=== PATIENT | male | born 1980 | race Caucasian/White ===

== ENCOUNTER 2021-11-06 12:41 | Observation (INO) ==
[2021-11-06 14:19] LABS: Basophils # (auto) 0.04 K/uL (0-0.2); Basophils % (auto) 0.2 %; Eosinophils % (auto) 1.2 %; Hematocrit (blood only) 50.6 % (40.1-51.0); Hemoglobin 17.4 g/dl (14.0-18.0); Immature Granulocytes # (auto) 0.08 K/uL (0.00-0.02); Immature Granulocytes % (auto) 0.5 %; Lymphocytes # (auto) 1.45 K/uL (1.2-3.4); Lymphocytes % (auto) 8.9 %; Mean Corpuscular Hemoglobin 31.8 pg (25.0-34.0); Mean Corpuscular Hgb Conc 34.4 g/dL (32.0-36.0); Mean Corpuscular Volume 92.5 fL (80.0-100.0); Mean Platelet Volume 9.9 fL (9.4-12.4); Monocytes # (auto) 0.87 K/uL (0.24-0.82); Monocytes % (auto) 5.4 %; Neutrophils # (auto) 13.59 K/uL (1.4-6.5); Neutrophils % (auto) 83.8 %; Platelet Count 185 K/uL (130-400); RDW Coefficient of Variation 13.4 % (11.5-14.5); RDW Standard Deviation 45.8 fL (36.4-46.3); Red Blood Count 5.47 M/uL (4.63-6.08); White Blood Count 16.23 K/ul (4.8-10.8)
[2021-11-06] MEDS ORDERED: SODIUM CHLORIDE 0.9% 1000ML 1,000 ML IV ONE (14:39)
[2021-11-06 14:47] LABS: Albumin Globulin Ratio 1.6 (0.9-2); Albumin Level 4.2 gm/dl (3.4-5.0); BUN Creatinine Ratio 11.6 (10-20); Calcium 8.9 mg/dl (8.5-10.1); Creatinine Clr Calc Pharmacy 149.7 ml/min; Est GFR (African American) 134.8 ml/min; Est GFR (Non-African American) 116.3 ml/min; Globulin 2.6 gm/dl (2.5-4.0); Total Protein 6.8 gm/dl (6.0-8.3)
[2021-11-06] MEDS ORDERED: MoRPHine SULFATE 10 MG/ML CARP/VIAL IV STA (15:02)
[2021-11-06] MEDS ORDERED: ONDANSETRON INJ 2 MG/ML 2 ML VIAL IV STA (15:02)
[2021-11-06] MEDS ORDERED: OPTIRAY 320 100ml IV ONE (15:18)
--- NOTE | 2021-11-06 15:39 | CT Scan Report ---
ABDOMEN AND PELVIS CT WITH IV CONTRAST CT DOSE: 673.08 mGycm HISTORY: Generalized abdominal pain, elev WBC, h/o pancolitis TECHNIQUE: Multiaxial CT images of the abdomen and pelvis were performed following the use of intrave nous contrast. A dose lowering technique was utilized adhering to the principles of ALARA. COMPARISON STUDY: Abdomen and pelvis CT 12/04/2018. FINDINGS: The lung bases are clear. No pneumoperitoneum. No pneumatosis. No fractures within the visu alized osseous structures. Mild hepatic steatosis. No hepatic or splenic masses. The spleen is at the upper limits of normal measuring 12 cm. The adrenal glands, pancreas, and kidneys are unremarkable. No hydronephrosis. No retroperitoneal lymphadenopathy. The bladder is unremarkable. No pelvic free fl uid. Questionable thickening of the descending colon is likely due to underdistention. No adjacent pe ricolonic change to suggest an acute process at this time. The appendix is fluid-filled and slightly dilated 7 mm. There is mild periappendiceal fat stranding. The appendiceal wall appears slightly thic kened. There is also mild thickening and inflammatory change adjacent to the terminal ileum. Mild thi ckening of the cecal base is also noted. A few mildly dilated and fluid-filled loops of small bowel w ithin the left side the abdomen. This favors a mild ileus. No transition point to suggest a bowel obs truction at this time. No retroperitoneal or pelvic lymphadenopathy. Normal caliber abdominal aorta. The main portal vein is patent. No evidence for abscess or bowel perforation. IMPRESSION: 1. Inflammatory change adjacent to the appendix and terminal ileum with mild wall thickening involvin g both the appendix and terminal ileum. Findings favor a mild acute appendicitis with reactive change to the ileum. However, a terminal ileitis with reactive change to the appendix could also have a sim ilar appearance. 2. Questionable thickening of the descending colon is likely due to underdistention. 3. Mild small bowel ileus. No evidence for bowel obstruction. ACT 112: Negative or not required by law. Electronically signed by: Vivek Juárez M.D. 11/06/2021 3:37 PM
--- NOTE | 2021-11-06 17:47 | History & Physical Report ---
Date of Service November 06, 2021 Assessment & Plan (1) Appendicitis: Plan: This is a 41yM with a PMH of HTN and GERD who presents to the [facility] ED on 11/06/21 with complaints of right lower abdominal pain that started this AM. In the ER he underwent a CT a/p that revealed "inflammatory change adjacent to the appendix and terminal ileum with mild wall thickening involving both the appendix and terminal ileum, favoring a mild acute appendicitis with reactive change to the ileum. However, a terminal ileitis with reactive change to the appendix could also have a similar appearance." In the ED WBC 16 and patient is afebrile and hypertensive. On exam patient's abdomen is mildly distended with majority of tenderness to palpation in the RLQ, however did have some mild discomfort in the upper abdomen as well. Does have a history of pancolitis back in 2019. Due to patient's history and the CT scan read unclear if appendicitis causing the surrounding inflammatory changes to the ileum vs a terminal ileitis causing the inflammation of the appendix...we will admit the patient for IV abx and monitor him overnight. Will repeat CBC in the AM. Keep NPO, IVF, and IV abx. Will ask medicine to evaluate the patient for his history of HTN and elevated BP in the ED. Patient was seen/examined with Dr. Amador. History of Present Illness Primary Care Provider: John Woodard MD This is a 41yM with a PMH of HTN and GERD who presents to the [facility] ED on 11/06/21 with complaints of abdominal pain. 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 He reports it's in the lower abdomen, worse on the R side. He rates his pain an 8/10 in severity, made worse with movement. He came into the ER due to his pain and s ymptoms. In the ER he underwent a CT a/p that revealed "inflammatory change adjacent to the appendix and terminal ileum with mild wall thickening involving both the appendix and terminal ileum, favoring a mild acute appendicitis with reactive change to the ileum. However, a terminal ileitis with reactive change to the appendix could also have a similar appearance." Patient denies any fevers, nausea/vomiting, or change in bowel habits. No prior abdominal surgical history. He does have a history of pancolitis in 2019. He states this feels different and is worse. He was suppose to follow up with GI and have a colonoscopy, however due to the co-pay he never followed through with the procedure. It was thought his symptoms were related to food intake at that time and he has not had any problems since then. He denies any personal or family history if inflammatory bowel disease. Patient has not had anything to eat today, but has drank a couple pepsi's and water, last around 1pm. Allergies Allergy/AdvReac Type Severity Reaction Status Date / Time bupropion Allergy Intermediate hives Verified 11/06/21 17:13 Home Medications Medication Instructions Recorded Confirmed Type amitriptyline 10 mg tablet 10 mg PO HS 11/06/21 11/06/21 History lisinopril 2.5 mg tablet 2.5 mg PO DAILY 11/06/21 11/06/21 History omeprazole 20 mg tablet,delayed 20 mg PO BID 11/06/21 11/06/21 History release sertraline 50 mg tablet (Zoloft) 50 mg PO DAILY 11/06/21 11/06/21 History Past Med/Surg History Medical History GERD (gastroesophageal reflux disease) Headache Insect bite Minor head injury without loss of consciousness Pancolitis Surgical History No significant past surgical history Family History Other Myocardial infarction Social History (Updated 11/06/21 @ 17:40 by Aristides Jacobson) Smoking Status: Never smoker Preferred Language: Japanese marital status: Single current occupational status: employed Feels Safe at Home: Yes Review of Systems Constitutional: + chills; no fever Respiratory: no dyspnea Cardiovascular: no chest pain Gastrointestinal: + abdominal pain; no bloating, no nausea, no vomiting and no change in bowel habits Physical Exam Physical Exam: awake/alert Constitutional: well developed and well nourished Respiratory: normal respiratory effort Gastrointestinal (Abdomen): Inspection/Auscultation: + abdomen distended (mild); no abdominal surgical incision Percussion/Palpation: + abdomen tender (some mild ttp in upper abd, most ttp noted to be in RLQ) and abdomen soft Results & Data Results & Data ([facility]) Vital Signs (Past 12 Hours) Vital Signs Temp Pulse Pulse Resp BP BP Pulse Ox 11/06/21 17:32 94 H 20 123/74 96 11/06/21 16:00 92 H 20 129/82 95 11/06/21 14:49 84 18 168/104 H 97 11/06/21 12:46 37.1 C 105 H 20 171/108 H 96 O2 Del Method 11/06/21 17:32 Room Air 11/06/21 16:00 Room Air 11/06/21 14:49 Room Air 11/06/21 12:46 Room Air Diagnostic Findings ABDOMEN AND PELVIS CT WITH IV CONTRAST CT DOSE: 673.08 mGycm HISTORY: Generalized abdominal pain, elev WBC, h/o pancolitis TECHNIQUE: Multiaxial CT images of the abdomen and pelvis were performed following the use of intravenous contrast. A dose lowering technique was utilized adhering to the principles of ALARA. COMPARISON STUDY: Abdomen and pelvis CT 12/04/2018. FINDINGS: The lung bases are clear. No pneumoperitoneum. No pneumatosis. No fractures within the visualized osseous structures. Mild hepatic steatosis. No hepatic or splenic masses. The spleen is at the upper limits of normal measuring 12 cm. The adrenal glands, pancreas, and kidneys are unremarkable. No hydronephrosis. No retroperitoneal lymphadenopathy. The bladder is unremarkable. No pelvic free fluid. Questionable thickening of the descending colon is likely due to underdistention. No adjacent pericolonic change to suggest an acute process at this time. The appendix is fluid-filled and slightly dilated 7 mm. There is mild periappendiceal fat stranding. The appendiceal wall appears slightly thickened. There is also mild thickening and inflammatory change adjacent to the terminal ileum. Mild thickening of the cecal base is also noted. A few mildly dilated and fluid-filled loops of small bowel within the left side the abdomen. This favors a mild ileus. No transition point to suggest a bowel obstruction at this time. No retroperitoneal or pelvic lymphadenopathy. Normal caliber abdominal aorta. The main portal vein is patent. No evidence for abscess or bowel perforation. IMPRESSION: 1. Inflammatory change adjacent to the appendix and terminal ileum with mild wall thickening involving both the appendix and terminal ileum. Findings favor a mild acute appendicitis with reactive change to the ileum. However, a terminal ileitis with reactive change to the appendix could also have a similar appearance. 2. Questionable thickening of the descending colon is likely due to underdistention. 3. Mild small bowel ileus. No evidence for bowel obstruction. ACT 112: Negative or not required by law. Electronically signed by: Vivek Juárez M.D. 11/06/2021 3:37 PM Supervising Physician Co-Signing Physician Notes As per Ameena Javier physician parking assistant The patient started with acute pain in her right lower quadrant at work this morning progressively getting worse came into the emergency room evaluated by CT scan with the above findings Past history of pancolitis never worked up with follow-up colonoscopy for insurance reasons Denies any real history of diarrhea or think compatible inflammatory bowel disease Resting comfortably in bed without any pain except on examination he has some guarding and right upper quadrant towards the midline negative Rovsing sign tender right lower quadrant but not pinpoint Farooq's point no right inguinal hernia appreciated testes normal At this point not 100% sure that this is appendicitis this was discussed with the patient with the options would be treated with antibiotics and see how he does and reevaluate him in the morning the meantime have medicine see the patient for his hypertension and also mention to him that if he went into surgery and found inflammation involving the appendix and terminal ileum (I tushar this for him as far as the anatomy) he may require to have a resection of the ileum and the cecum All question answered he is comfortable with this decision PG Care Time/CCT Total # of Minutes Spent Total Time Spent with Patient: Total time spent is greater than 50% in coordination of care (as documented) at patient's floor/unit and/or counseling patient: Coding Level of Care Code 29838 Initial Inpt Care Lvl 2 Diagnoses Appendicitis K37
--- NOTE | 2021-11-06 17:48 | Emergency Department Note ---
History of Present Illness General Chief complaint: Abdominal Pain Stated complaint: ABDOMINAL PAIN Time Seen by Provider: 11/06/21 14:35 History of Present Illness Maximum Pain Intensity: 8 Pleasant 41-year-old male who presents to the emergency department with complaint of lower abdominal pain that started approximately 2 hours ago, and has progressively worsened. The patient reports that the pain feels like a cramping sensation. It is now is worsened with ambulation and bending over. The patient denies any fever, chills, nausea or vomiting. The patient denies prior history of abdominal surgeries. He rates his discomfort an 8 out of 10. Home Medications Medication Instructions Recorded Confirmed Type amitriptyline 10 mg tablet 10 mg PO HS 11/06/21 11/06/21 History lisinopril 2.5 mg tablet 2.5 mg PO DAILY 11/06/21 11/06/21 History omeprazole 20 mg tablet,delayed 20 mg PO BID 11/06/21 11/06/21 History release sertraline 50 mg tablet (Zoloft) 50 mg PO DAILY 11/06/21 11/06/21 History Allergies Allergy/AdvReac Type Severity Reaction Status Date / Time bupropion Allergy Intermediate hives Verified 11/06/21 17:13 Past Med/Surg History Medical History GERD (gastroesophageal reflux disease) Headache Insect bite Minor head injury without loss of consciousness Pancolitis Surgical History No significant past surgical history Family History Other Myocardial infarction Social History (Updated 11/06/21 @ 17:40 by Aristides Jacobson) Smoking Status: Never smoker Preferred Language: Georgian marital status: Single current occupational status: employed Feels Safe at Home: Yes Review of Systems 10 system review was performed and was negative except for pertinent positives and negatives as indicated in history of present illness Physical Exam Vital Signs Vital Signs - 24 hr 11/06/21 12:46 11/06/21 14:49 11/06/21 16:00 Temperature 37.1 C Temperature Source Temporal Artery Scan Pulse Rate 105 H Pulse Rate [Right Finger] 84 92 H Pulse Rhythm [Right Finger] Regular Regular Pulse Strength [Right Finger] Normal Normal Respiratory Rate 20 18 20 Respiratory Effort / Characteristics Non-Labored Non-Labored Spontaneous Non-Labored Spontaneous Respiratory Depth Normal Normal Normal Respiratory Pattern Regular Regular Blood Pressure 171/108 H Blood Pressure [Right Arm] 168/104 H 129/82 Blood Pressure Mean 129 Blood Pressure Mean [Right Arm] 125 97 Blood Pressure Position [Right Arm] Lying Lying Pulse Oximetry 96 97 95 Oxygen Delivery Method Room Air Room Air Room Air Sepsis Recent Fever Within 48 Hours No Sepsis New/Unexplained Change in Mental Status N/A Sepsis Action Taken by Nursing No Action Required 11/06/21 17:32 Temperature Temperature Source Pulse Rate Pulse Rate [Right Finger] 94 H Pulse Rhythm [Right Finger] Regular Pulse Strength [Right Finger] Normal Respiratory Rate 20 Respiratory Effort / Characteristics Non-Labored Respiratory Depth Normal Respiratory Pattern Blood Pressure Blood Pressure [Right Arm] 123/74 Blood Pressure Mean Blood Pressure Mean [Right Arm] 90 Blood Pressure Position [Right Arm] Lying Pulse Oximetry 96 Oxygen Delivery Method Room Air Sepsis Recent Fever Within 48 Hours Sepsis New/Unexplained Change in Mental Status Sepsis Action Taken by Nursing CONSTITUTIONAL: Healthy and well nourished. Patient appears in mild to moderate discomfort. HEENT: No scleral icterus or conjunctival injection/pallor. RESPIRATORY: Clear to auscultation bilaterally with no wheezing, crackles, rhonchi or stridor. CARDIOVASCULAR: Regular rate and rhythm with no murmurs, rubs or gallops. GASTROINTESTINAL: Bowel sounds present in all quadrants. Patient has a positive McBurney's point tenderness with guarding. Negative Rovsing sign. Positive heeltap. Positive psoas/obturator sign. Negative CVA tenderness. No rebound. MUSCULOSKELETAL: Full range of motion of all joints without discomfort. No pain with logroll of the right hip. No tenderness to palpation through the lower lumbar spine, paraspinous muscles or SI joint. INTEGUMENTARY: No rash or other significant dermatologic conditions noted. HEMATOLOGIC: No ecchymosis or petechiae. PSYCHIATRIC: Positive affect. NEUROLOGIC: No focal neurologic deficits noted. Course Course Patient history and physical exam were performed. Nurses notes were reviewed. Vital signs were reviewed from triage, showing an elevated blood pressure. The patient was otherwise afebrile. Nurse protocol orders were entered as the emergency department was busy, and the patient had to wait in the waiting room. IV access was established, and labs were drawn. Upon my evaluation at the time the patient was transferred to her room, he was found to have an elevated white count with left shift and bandemia. CMP and lipase were normal. The patient had not been able to provide a urine sample for urinalysis. Prior to CT imaging of the abdomen. The patient was administered IV morphine and Zofran. CT with IV contrast of the abdomen and pelvis was concerning for acute appendicitis, with possible reactive changes to the ileum. Radiologist also questioned thi ckening of the descending colon as well, with a mild small bowel ileus. I did review the patient's prior medical history, showing that the patient was evaluated [address] imaging showing a pancolitis. The patient did follow-up with gastroenterology, who recommended colonoscopy. The patient reports that his [id number] expense would have been $1500, and deferred colonoscopy. The patient reports that he has not had any further issues with intermittent abdominal pain since that time. Findings were discussed with the patient, concerning for possible acute appendicitis versus possible colitis. Findings were discussed with Dr. Amador, general surgeon, who has agreed to admit the patient with IV antibiotics. They will order IV antibiotics for the patient. They have asked that I consult the hospitalist service for further evaluation and management of his hypertension. It is noted that his last blood pressure at the time of my dictation was 123/74. Review of prior blood pressure history does show chronic elevation. The patient does take lisinopril 2.5 mg daily. The patient was happy with plan of care, and denied any significant discomfort at the conclusion of my exam. Please see general surgery and hospitalist dictations for further treatment and final disposition. Administered Medications Discontinued Medications Sodium Chloride (Nss 1000ml) 1,000 mls @ 999 mls/hr IV .Q1H1M ONE Stop: 11/06/21 15:39 Last Infusion: 11/06/21 16:12 Dose: 0 mls/hr Documented By: Admin: 11/06/21 14:50 Dose: 999 mls/hr Documented By: CDV Ioversol (Optiray 320 100ml) 94 ml IV ONCE ONE Stop: 11/06/21 15:19 Last Admin: 11/06/21 15:18 Dose: 94 ml Documented By: BROOKEF Morphine Sulfate (Morphine Sulfate 10 Mg/Ml Carp/Vial) 6 mg IV NOW STA Stop: 11/06/21 15:03 Last Admin: 11/06/21 15:07 Dose: 6 mg Documented By: MILLY Ondansetron HCl (Ondansetron Inj 2 Mg/Ml 2 Ml Vial) 4 mg IV NOW STA Stop: 11/06/21 15:03 Last Admin: 11/06/21 15:07 Dose: 4 mg Documented By: MILLY Medical Decision Making Medical Records Attestation: I reviewed the patient's medical records. Home Medications Current Medication List: was personally reviewed by me Laboratory Data Attestation: I reviewed the patient's lab results. Result diagrams: 11/06/21 13:43 11/06/21 13:43 Lab Results 11/06/21 11/06/21 11/06/21 Range/Units 13:43 13:43 16:25 WBC 16.23 H (4.8-10.8) K/ul RBC 5.47 (4.63-6.08) M/uL Hgb 17.4 (14.0-18.0) g/dl Hct 50.6 (40.1-51.0) % MCV 92.5 (80.0-100.0) fL MCH 31.8 (25.0-34.0) pg MCHC 34.4 (32.0-36.0) g/dL RDW Std Deviation 45.8 (36.4-46.3) fL RDW Coeff of Perri 13.4 (11.5-14.5) % Plt Count 185 (130-400) K/uL MPV 9.9 (9.4-12.4) fL Immature Gran % (Auto) 0.5 % Neut % (Auto) 83.8 % Lymph % (Auto) 8.9 % [place] % (Auto) 5.4 % Eos % (Auto) 1.2 % Baso % (Auto) 0.2 % Neut # (Auto) 13.59 H (1.4-6.5) K/uL Lymph # (Auto) 1.45 (1.2-3.4) K/uL [place] # (Auto) 0.87 H (0.24-0.82) K/uL Eos # (Auto) 0.20 (0-0.50) K/uL Baso # (Auto) 0.04 (0-0.2) K/uL Immature Gran # (Auto) 0.08 H (0.00-0.02) K/uL Sodium 136 (136-145) mmol/L Potassium 4.0 (3.5-5.1) mmol/L Chloride 104 (98-107) mmol/L Carbon Dioxide 26 (21-32) mmol/L Anion Gap 6 (3-11) BUN 8 (6-23) mg/dl Creatinine 0.69 (0.6-1.4) mg/dl Est Cr Clr Drug Dosing 149.7 ml/min Est GFR ( Amer) 134.8 ml/min Est GFR (Non-Af Amer) 116.3 ml/min BUN/Creatinine Ratio 11.6 (10-20) Glucose 97 (70-99(Fasting)) mg/dl Calcium 8.9 (8.5-10.1) mg/dl Total Bilirubin 1.0 (0.2-1.0) mg/dl AST 28 (13-39) U/L ALT 29 (7-52) U/L Alkaline Phosphatase 95 (34-104) U/L Total Protein 6.8 (6.0-8.3) gm/dl Albumin 4.2 (3.4-5.0) gm/dl Globulin 2.6 (2.5-4.0) gm/dl Albumin/Globulin Ratio 1.6 (0.9-2) Lipase 11 (11-82) U/L SARS-CoV-2, RNA, NAAT NEGATIVE (NEGATIVE) Imaging Data Attestation: I personally reviewed and interpreted this imaging study as follows: My Impression: My interpretation of a CT with IV contrast of the abdomen and pelvis shows evidence for possible acute appendicitis versus colitis. No evidence for bowel obstruction, free air, diverticulitis or other acute findings other than a mild small bowel ileus per radiologist report. Radiologist's Impression: Abdomen/Pelvis CT 11/06/21 14:[address] WITH IV CONTRAST CT DOSE: 673.08 mGycm HISTORY: Generalized abdominal pain, elev WBC, h/o pancolitis TECHNIQUE: Multiaxial CT images of the abdomen and pelvis were performed following the use of intravenous contrast. A dose lowering technique was utilized adhering to the principles of ALARA. COMPARISON STUDY: Abdomen and pelvis CT 12/04/2018. FINDINGS: The lung bases are clear. No pneumoperitoneum. No pneumatosis. No fractures within the visualized osseous structures. Mild hepatic steatosis. No hepatic or splenic masses. The spleen is at the upper limits of normal measuring 12 cm. The adrenal glands, pancreas, and kidneys are unremarkable. No hydronephrosis. No retroperitoneal lymphadenopathy. The bladder is unremarkable. No pelvic free fluid. Questionable thickening of the descending colon is likely due to underdistention. No adjacent pericolonic change to suggest an acute proc ess at this time. The appendix is fluid-filled and slightly dilated 7 mm. There is mild periappendiceal fat stranding. The appendiceal wall appears slightly thickened. There is also mild thickening and inflammatory change adjacent to the terminal ileum. Mild thickening of the cecal base is also noted. A few mildly dilated and fluid-filled loops of small bowel within the left side the abdomen. This favors a mild ileus. No transition point to suggest a bowel obstruction at this time. No retroperitoneal or pelvic lymphadenopathy. Normal caliber abdominal aorta. The main portal vein is patent. No evidence for abscess or bowel perforation. IMPRESSION: 1. Inflammatory change adjacent to the appendix and terminal ileum with mild wall thickening involving both the appendix and terminal ileum. Findings favor a mild acute appendicitis with reactive change to the ileum. However, a terminal ileitis with reactive change to the appendix could also have a similar appearance. 2. Questionable thickening of the descending colon is likely due to underdistention. 3. Mild small bowel ileus. No evidence for bowel obstruction. ACT 112: Negative or not required by law. Electronically signed by: Vivek Juárez M.D. 11/06/2021 3:37 PM Blood Pressure Blood Pressure Findings: Elevated blood pressure Blood Pressure Disposition: further management by hospitalist DAHLIA Narrative CT imaging is concerning for acute appendicitis versus colitis. The patient has had a pancolitis in the past that has not been evaluated with colonoscopy. General surgery has agreed to admit the patient with IV antibiotics and further observation overnight. [facility]. Additional work-up today is not suggestive of ureteral calculus, diverticulitis, bowel obstruction, pancreatitis, cholecystitis or hepatitis. Impression & Plan Acute appendicitis, Colitis Discharge Plan Visit Data Chief Complaint: Abdominal Pain Stated Complaint: ABDOMINAL PAIN ED Provider: Stevan Gilliam ED Midlevel Provider: Aristides Jacobson Discharge Problem: Acute appendicitis, Colitis Forms Stand Alone Forms: My [facility] Prescriptions Prescriptions: No Action amitriptyline 10 mg Tablet 10 mg PO HS sertraline [Zoloft] 50 mg Tablet 50 mg PO DAILY lisinopril 2.5 mg Tablet 2.5 mg PO DAILY omeprazole 20 mg Tablet,Delayed Release (Dr/Ec) 20 mg PO BID Referrals Referrals: John Woodard MD [Primary Care Provider] - : Acute appendicitis Qualifiers: Acute appendicitis type: with localized peritonitis Appendicitis gangrene presence: without gangrene Appendicitis perforation presence: without pe rforation Appendicitis abscess presence: without abscess Qualified Code(s): K35.30 - Acute appendicitis with localized peritonitis, without perforation or gangrene
--- NOTE | 2021-11-06 18:16 | Consultation ---
Date of Consultation November 06, 2021 Assessment & Plan (1) Appendicitis: Patient is 41 y/o M with PMH HTN, depression, tobacco use, alcohol use currently admitted for possible appendicitis 11/06/21 CT abdomen pelvis concerning for inflammatory change adjacent to appendix and terminal ileum with mild wall thickening of appendix and terminal ileum General surgery managing Receiving IV Zosyn per general surgery Patient is n.p.o. IVF CBC, BMP in a.m. (2) Hypertension: In ER initial BP 168/104 down to 129/82 Likely elevated secondary to pain Monitor Continue lisinopril (3) Depression: Continue sertraline, amitriptyline (4) Alcohol use: Drinks 5-10 beers daily. Denies history of alcohol withdrawal Alcohol withdrawal protocol with gabapentin Monitor closely Start daily thiamine and folic acid (5) Tobacco use: Smokes 1.5 packs/day Smoking cessation encouraged Nicotine patch (6) GERD (gastroesophageal reflux disease): Oral PPI converted to IV by general surgery DVT Prophylaxis SCDs Disposition per primary team Follows with Dr Woodard for routine care Pt was seen and care coordinated with Dr Burroughs. See addendum Thank you for this consultation. We will follow the patient with you during their hospital stay. You can [facility] a [facility] via [facility] Supervising Physician Co-Signing Physician Notes Attending addendum The patient was seen and examined in emergency room He complains to have right lower quadrant pain and noted to have very high blood pressure initially Denies any chest pain and/or palpitation associated with it On examination Lying in bed with minimal discomfort due to abdominal pain Hemodynamically stable and is afebrile Chestclear to auscultate bilaterally HeartS1-S2, regular Abdomensoft, tender in right lower quadrant with rebound tenderness and bowel sound decreased Extremities negative for any edema His admission labs, EKG and imaging studies reviewed Has acute appendicitis under surgical care High blood pressure likely situational Agree with assessment and plan as outlined above by ELLIOT Hernández Dr History of Present Illness Requesting Physician: Dr Amador Reason for Consultation: HTN Attending Physician: Dr Amador History of Present Illness Patient is 41 y/o M with PMH HTN, depression, tobacco use, alcohol use seen in medical consultation for hypertension. Patient presented to ER today 11/06/2021 for right lower quadrant pain and CT abdomen pelvis concerning for inflammatory change adjacent to appendix and terminal ileum with mild wall thickening of appendix and terminal ileum. Patient admitted by general surgery and is being treated with IV antibiotics and being further monitored. In ER initial BP 168/104 down to 129/82. Patient takes lisinopril daily and reports had morning dose. Patient has since been medicated with pain medicine reports some decreased abdominal pain. Reported chills today without known fever. Denies diaphoresis, N/V/D/C, MAURO, dizziness, syncope, vision changes, neck pain, CP, SOB, orthopnea, palpitations, cough, sore throat, choking, otalgia, rhinorrhea, paresthesias, weakness, extremity weakness, extremity edema, rashes, urinary symptoms. Allergies Allergy/AdvReac Type Severity Reaction Status Date / Time bupropion Allergy Intermediate hives Verified 11/06/21 17:13 Home Medications Medication Instructions Recorded Confirmed Type amitriptyline 10 mg tablet 10 mg PO HS 11/06/21 11/06/21 History lisinopril 2.5 mg tablet 2.5 mg PO DAILY 11/06/21 11/06/21 History omeprazole 20 mg tablet,delayed 20 mg PO BID 11/06/21 11/06/21 History release sertraline 50 mg tablet (Zoloft) 50 mg PO DAILY 11/06/21 11/06/21 History Patient History Medical History Alcohol use Appendicitis Depression GERD (gastroesophageal reflux disease) Headache Hypertension Insect bite Minor head injury without loss of consciousness Pancolitis Tobacco use Surgical History (Updated 11/06/21 @ 20:05 by Anais Bowman PA-C) History of esophagogastroduodenoscopy (EGD) Family History Other Myocardial infarction Social History (Updated 11/06/21 @ 20:05 by Anais Bowman PA-C) Smoking Status: Current every day smoker Cigarettes Per Day: 1.5 ppd; Second Hand Exposure: Yes; Hx Alcohol Use: Yes (5-10 beers daily) Alcohol type: beer Hx Substance Use: No Preferred Language: French Communication Ability: Effective [employer] Supervisor Required: No Beliefs That Will Affect Care: None marital status: Single Current Living Situation: Parent current occupational status: employed Feels Safe at Home: Yes Assistive Devices: None Review of Systems Review of Systems: All systems reviewed & are unremarkable except as noted in HPI & below Physical Exam Physical Exam: General: no distress, WDWN Head: normocephalic, atraumatic Eyes: conjunctiva non-injected, anicteric ENT: normal inspection external ears, nose, mucous membranes moist Neck: supple, trachea midline Lungs: clear, no respiratory distress, no wheezing/rhonchi/rales CV: RRR, no murmur, no pretibial edema Abd: slightly distended, normal BS, soft, + tender to palpation RLQ Ext: no cyanosis, no calf tenderness Neuro: A&O x 3, no focal deficits noted, normal affect Skin: warm, dry Results & Data ([facility]) Vital Signs (Past 12 Hours) Vital Signs Temp Pulse Pulse Resp BP BP Pulse Ox 11/06/21 17:32 94 H 20 123/74 96 11/06/21 16:00 92 H 20 129/82 95 11/06/21 14:49 84 18 168/104 H 97 11/06/21 12:46 37.1 C 105 H 20 171/108 H 96 O2 Del Method 11/06/21 17:32 Room Air 11/06/21 16:00 Room Air 11/06/21 14:49 Room Air 11/06/21 12:46 Room Air Laboratory Results Short CBC 11/06/21 Range/Units 13:43 WBC 16.23 H (4.8-10.8) K/ul Hgb 17.4 (14.0-18.0) g/dl Hct 50.6 (40.1-51.0) % Plt Count 185 (130-400) K/uL BMP 11/06/21 13:43 Sodium 136 Potassium 4.0 Chloride 104 Carbon Dioxide 26 BUN 8 Creatinine 0.69 Glucose 97 Calcium 8.9 Liver Function 11/06/21 Range/Units 13:43 Total Bilirubin 1.0 (0.2-1.0) mg/dl AST 28 (13-39) U/L ALT 29 (7-52) U/L Alkaline Phosphatase 95 (34-104) U/L Albumin 4.2 (3.4-5.0) gm/dl Diagnostic Findings Abdomen/Pelvis CT 11/06/21 14:[address] WITH IV CONTRAST CT DOSE: 673.08 mGycm HISTORY: Generalized abdominal pain, elev WBC, h/o pancolitis TECHNIQUE: Multiaxial CT images of the abdomen and pelvis were performed following the use of intravenous contrast. A dose lowering technique was utilized adhering to the principles of ALARA. COMPARISON STUDY: Abdomen and pelvis CT 12/04/2018. FINDINGS: The lung bases are clear. No pneumoperitoneum. No pneumatosis. No fractures within the visualized osseous structures. Mild hepatic steatosis. No hepatic or splenic masses. The spleen is at the upper limits of normal measuring 12 cm. The adrenal glands, pancreas, and kidneys are unremarkable. No hydron ephrosis. No retroperitoneal lymphadenopathy. The bladder is unremarkable. No pelvic free fluid. Questionable thickening of the descending colon is likely due to underdistention. No adjacent pericolonic change to suggest an acute process at this time. The appendix is fluid-filled and slightly dilated 7 mm. There is mild periappendiceal fat stranding. The appendiceal wall appears slightly thickened. There is also mild thickening and inflammatory change adjacent to the terminal ileum. Mild thickening of the cecal base is also noted. A few mildly dilated and fluid-filled loops of small bowel within the left side the abdomen. This favors a mild ileus. No transition point to suggest a bowel obstruction at this time. No retroperitoneal or pelvic lymphadenopathy. Normal caliber abdominal aorta. The main portal vein is patent. No evidence for abscess or bowel perforation. IMPRESSION: 1. Inflammatory change adjacent to the appendix and terminal ileum with mild wall thickening involving both the appendix and terminal ileum. Findings favor a mild acute appendicitis with reactive change to the ileum. However, a terminal ileitis with reactive change to the appendix could also have a similar appearance. 2. Questionable thickening of the descending colon is likely due to underdistention. 3. Mild small bowel ileus. No evidence for bowel obstruction. ACT 112: Negative or not required by law. Electronically signed by: Vivek Juárez M.D. 11/06/2021 3:37 PM
[2021-11-06] MEDS ORDERED: PIPERACILLIN/TAZOBACTAM 4.5 GM/120 ML BAG IV ONE ×2 (19:19→20:30)
[2021-11-06] MEDS ORDERED: LORazepam 1 MG in SYRINGE 0.5 ML IV PRN (19:51)
[2021-11-06] MEDS ORDERED: GABAPENTIN 1200MG ALCOHOL WITHDRAWAL LOAD PO STA (19:51)
[2021-11-06] MEDS ORDERED: ONDANSETRON INJ 2 MG/ML 2 ML VIAL IV PRN (19:51)
[2021-11-06] MEDS ORDERED: MULTI-VITAMIN INFUSION 10 ML, THIAMINE HCL 100 MG, FOLIC ACID 1 MG in SODIUM CHLORIDE 0... IV ONE (20:00)
[2021-11-06] MEDS: MoRPHine SULFATE 4 MG/ML 1 ML CARP\\VIAL IV PRN ×2 (20:15→23:10)
[2021-11-06] MEDS ORDERED: GABAPENTIN 600 MG TAB PO ONE (20:30)
[2021-11-06] MEDS: PANTOprazole 40 MG in SYRINGE 0 ML IV SCH (21:20)
[2021-11-06] MEDS: THIAMINE HCL 100 MG TAB PO SCH (21:21)
[2021-11-06] MEDS: FOLIC ACID 1 MG TAB PO SCH (21:21)
[2021-11-06] MEDS: NICOTINE 21 MG/24 HR TDSY TD SCH (21:21)
[2021-11-06] MEDS: AMITRIPTYLINE HCL 10 MG TAB PO SCH (21:22)
[2021-11-06] MEDS: SODIUM CHLORIDE 0.9% 1000ML 1,000 ML IV SCH (21:33)
[2021-11-06] MEDS: ACETAMINOPHEN 1000 MG/100 ML IV IV PRN (22:05)
[2021-11-07] MEDS: PIPERACILLIN/TAZOBACTAM 3.375 GM in DEXTROSE 5% 100 ML IV SCH ×3 (03:10→19:15)
[2021-11-07] MEDS: MoRPHine SULFATE 4 MG/ML 1 ML CARP\\VIAL IV PRN ×4 (05:08→21:55)
[2021-11-07] MEDS: GABAPENTIN 600 MG TAB PO SCH ×3 (05:09→21:55)
--- NOTE | 2021-11-07 05:33 | Surgery Progress Note ---
Date of Service November 07, 2021 Assessment & Plan (1) Appendicitis: Plan: Patient has been admitted to the hospital due to his abdominal pain proceeding as follows: As patient has a history of pancolitis in the past, it was not 100% certain patient was suffering from appendicitis We will repeat a CBC this morning (this is pending Keep patient n.p.o. Continue to provide analgesics Continue antibiotics in the form of Zosyn Continue IV fluids while patient is n.p.o. Patient will be reevaluated by Dr. Egan daily this morning and the determination will be made if patient warrants operative intervention Admission and Anticipated Discharge Date Admission Date: November 06, 2021 Supervising Physician Co-Signing Physician Notes Compared to last evening the patient physical finding may be a bit better although still exquisitely tender in the right lower quadrant nonlocalized Lab is pending At this point we will proceed with laparoscopic appendectomy possible bowel resection possible open Risk and complication of surgery explained to patient include bleeding infection converting to an open procedure and he would like to proceed accordingly Surgery has been notified We will have permit signed in the preop area Subjective Patient is resting comfortably in bed. He notes continued abdominal pain which is greatest on the right side of his abdomen in the right lower quadrant. He notes that the pain is worse with movement. He denies any fevers, shakes, or chills. No nausea or vomiting. He has not moved his bowels since admission. He notes he has passed a tiny amount of flatus. Physical Exam Gastrointestinal (Abdomen): Abdomen has mild distention noted. There is pain noted with palpation in the right lower quadrant with some associated rebound tenderness. Results & Data ([facility]) Vital Signs (Past 12 Hours) Vital Signs Temp Pulse Pulse Resp BP BP Pulse Ox 11/07/21 00:00 11/06/21 19:51 11/06/21 22:50 36.6 C 63 18 113/73 97 11/06/21 19:51 36.6 C 70 16 143/89 H 95 11/06/21 19:35 78 19 119/87 98 11/06/21 19:00 84 18 128/83 96 11/06/21 17:32 94 H 20 123/74 96 Pulse Ox O2 Del Method O2 Del Method 11/07/21 00:00 95 Room Air 11/06/21 19:51 95 Room Air 11/06/21 22:50 Room Air 07/22/22 19:51 Room Air 11/06/21 19:35 Room Air 11/06/21 19:00 Room Air 11/06/21 17:32 Room Air PG Care Time/CCT Total # of Minutes Spent Total Time Spent with Patient: Total time spent is greater than 50% in coordination of care (as documented) at patient's floor/unit and/or counseling patient: Coding Level of Care Code 35098 Subseq Hosp Care Lvl 1 Diagnoses Appendicitis K37
[2021-11-07] MEDS: SODIUM CHLORIDE 0.9% 1000ML 1,000 ML IV SCH ×3 (06:42→19:14)
[2021-11-07] MEDS ORDERED: fentaNYL citrate 100 MCG/2 ML VIAL ONE ×2 (06:50→09:46)
[2021-11-07] MEDS ORDERED: MIDAZOLAM HCL 1 MG/ML 2ML VIAL ONE (06:50)
[2021-11-07] MEDS ORDERED: ROCURONIUM BROMIDE 10 MG/ML 5 ML VIAL IV ONE (06:51)
[2021-11-07] MEDS ORDERED: PROPOFOL IV EMULSION 10 MG/ML 20 ML VIAL IV ONE (06:51)
[2021-11-07] MEDS ORDERED: LIDOCAINE 2% 20 MG/ML 5 ML SYR IV ONE (06:51)
[2021-11-07] MEDS: SERTRALINE HCL 50 MG TABLET PO SCH (07:22)
[2021-11-07] MEDS: FOLIC ACID 1 MG TAB PO SCH (07:22)
[2021-11-07] MEDS: lisinopril 2.5 MG TAB PO SCH (07:22)
[2021-11-07] MEDS: THIAMINE HCL 100 MG TAB PO SCH (07:22)
[2021-11-07] MEDS: NICOTINE 21 MG/24 HR TDSY TD SCH (07:22)
[2021-11-07] MEDS: PANTOprazole 40 MG in SYRINGE 0 ML IV SCH ×2 (07:23→20:14)
[2021-11-07 07:30] LABS: BUN Creatinine Ratio 9.7 (10-20); Calcium 7.7 mg/dl (8.5-10.1); Creatinine Clr Calc Pharmacy 132.3 ml/min; Est GFR (African American) 132.4 ml/min; Est GFR (Non-African American) 114.3 ml/min; Potassium 3.9 mmol/L (3.5-5.1)
[2021-11-07] MEDS: ACETAMINOPHEN 1000 MG/100 ML IV IV PRN ×2 (07:46→16:04)
--- NOTE | 2021-11-07 07:53 | Anesthesiology Consultation ---
Date of Service November 07, 2021 Assessment & Plan (1) Encounter for pre-operative examination: Chart Review Chart Review: Acceptable Risk for Surgery History Surgery Operation Date: 11/07/21 09:00 Proposed Procedures p Laparoscopic Appendectomy - Gonzalo Amador MD, FACS Height/Weight Height: 5 ft 9 in Weight: 83.3 kg Allergies Allergy/AdvReac Type Severity Reaction Status Date / Time bupropion Allergy Intermediate hives Verified 11/06/21 17:13 Medications Home Medications Medication Instructions Recorded Confirmed Last Taken amitriptyline 10 mg tablet 10 mg PO HS 11/06/21 11/06/21 Unknown lisinopril 2.5 mg tablet 2.5 mg PO DAILY 11/06/21 11/06/21 11/06/21 omeprazole 20 mg tablet,delayed 20 mg PO BID 11/06/21 11/06/21 Unknown release sertraline 50 mg tablet (Zoloft) 50 mg PO DAILY 11/06/21 11/06/21 11/06/21 Active Medications Generic Name Dose Route Start Last Admin Trade Name Ole PRN Reason Stop Dose Admin Acetaminophen 1,000 mg 11/06/21 19:51 11/07/21 07:46 Acetaminophen 1000 Mg/100 Ml Iv IV 11/09/21 19:50 1,000 mg Q8H PRN Administration Mild Pain Amitriptyline HCl 10 mg 11/06/21 21:00 11/06/21 21:22 Amitriptyline Hcl 10 Mg Tab PO 12/06/21 20:59 10 mg HS HUMAIRA Administration Folic Acid 1 mg 11/06/21 19:51 11/07/21 07:22 Folic Acid 1 Mg Tab PO 12/06/21 19:50 1 mg QAM HUMAIRA Administration Gabapentin 600 mg 11/07/21 06:00 11/07/21 05:09 Gabapentin 600 Mg Tab PO 11/07/21 12:01 600 mg Q6H HUMAIRA Administration Sodium Chloride 1,000 mls @ 125 mls/hr 11/06/21 19:51 11/07/21 06:42 Nss 1000ml IV 12/06/21 19:50 125 mls/hr .Q8H HUMAIRA Administration Piperacillin Sod/Tazobactam 115 mls @ 28.75 mls/hr 11/07/21 01:30 11/07/21 07:27 Sod 3.375 gm/ Dextrose IV 11/17/21 01:29 Infused Q8H HUMAIRA Infusion Protocol Pantoprazole Sodium 40 mg/ 10 mls @ 5 mls/min 11/06/21 21:00 11/07/21 07:23 Syringe IV 12/06/21 20:59 5 mls/min BID HUMAIRA Administration Lisinopril 2.5 mg 11/07/21 09:00 11/07/21 07:22 Lisinopril 2.5 Mg Tab PO 12/07/21 08:59 2.5 mg DAILY HUMAIRA Administration Miscellaneous 1 each 11/07/21 08:59 11/07/21 07:23 Remove Nicoderm Patch N/A 12/07/21 08:58 1 each DAILY@0859 HUMAIRA Administration Morphine Sulfate 4 mg 11/06/21 19:51 11/07/21 05:08 Morphine Sulfate 4 Mg/Ml 1 Ml Carp\Vial IV 11/20/21 19:50 4 mg Q3H PRN Administration Pain (6,7,8,9,10) Nicotine 21 mg 11/06/21 20:00 11/07/21 07:22 Nicotine 21 Mg/24 Hr Tdsy TD 12/06/21 19:59 21 mg QAM HUMAIRA Administration Sertraline HCl 50 mg 11/07/21 09:00 11/07/21 07:22 Sertraline Hcl 50 Mg Tablet PO 12/07/21 08:59 50 mg DAILY HUMAIRA Administration Thiamine HCl 100 mg 11/06/21 20:00 11/07/21 07:22 Thiamine Hcl 100 Mg Tab PO 12/06/21 19:59 100 mg QAM HUMAIRA Administration NPO Date Last Intake of Fluids: 11/07/21 Time Last Intake of Fluids: 06:40 Last Intake of Fluids Comment: sips of water to take pills with Date Last Intake of Solids: 11/06/21 Time Last Intake of Solids: 09:00 Past Medical History Medical History Alcohol use Appendicitis Depression GERD (gastroesophageal reflux disease) Headache Hypertension Insect bite Minor head injury without loss of consciousness Pancolitis Tobacco use Past Family History Family History Other Myocardial infarction Past Surgical History Surgical History History of esophagogastroduodenoscopy (EGD) Social History Smoking Status: Current every day smoker tobacco type: cigarettes Smoking cigarettes per day: 1.5 ppd Do You Dip or Chew Tobacco: No Hx Alcohol Use: Yes (5-10 beers daily) Alcohol type: beer alcohol intake frequency: 3 or more drinks per day Hx Substance Use: No Physical Exam Vital Signs Last Vital Signs Temp 36.6 C 11/06/21 22:50 Pulse 70 11/07/21 07:21 Resp 18 11/06/21 22:50 BP 124/87 11/07/21 07:21 Pulse Ox 93 11/07/21 07:21 O2 Del Method 11/07/21 07:21 Testing Laboratory Results 11/07/21 06:59
[2021-11-07 08:17] LABS: Hemoglobin 15.2 g/dl (14.0-18.0); Mean Corpuscular Hemoglobin 32.2 pg (25.0-34.0); Mean Corpuscular Hgb Conc 33.8 g/dL (32.0-36.0); Mean Corpuscular Volume 95.3 fL (80.0-100.0); Mean Platelet Volume 9.5 fL (9.4-12.4); Platelet Count 133 K/uL (130-400); RDW Coefficient of Variation 13.5 % (11.5-14.5); RDW Standard Deviation 47.8 fL (36.4-46.3); Red Blood Count 4.72 M/uL (4.63-6.08); White Blood Count 9.99 K/ul (4.8-10.8)
[2021-11-07 08:18] LABS: Basophils # (auto) 0.03 K/uL (0-0.2); Basophils % (auto) 0.3 %; Eosinophils # (auto) 0.19 K/uL (0-0.50); Eosinophils % (auto) 1.9 %; Immature Granulocytes # (auto) 0.04 K/uL (0.00-0.02); Immature Granulocytes % (auto) 0.4 %; Lymphocytes # (auto) 2.03 K/uL (1.2-3.4); Lymphocytes % (auto) 20.3 %; Monocytes # (auto) 0.74 K/uL (0.24-0.82); Monocytes % (auto) 7.4 %; Neutrophils # (auto) 6.96 K/uL (1.4-6.5); Neutrophils % (auto) 69.7 %; Platelet Estimate Decreased (Normal)
[2021-11-07] MEDS ORDERED: LIDOCAINE 1%/EPINEPHRINE 1:100,000 50 ML VIAL ONE ×2 (09:13→09:17)
[2021-11-07] MEDS ORDERED: LABETALOL HCL IV 5 MG/ML 20ML IV PRN (09:14)
[2021-11-07] MEDS ORDERED: PROMETHAZINE HCL 6.25 MG in SODIUM CHLORIDE 0.9% 50 ML IV PRN (09:14)
[2021-11-07] MEDS ORDERED: KETOROLAC 30 MG/ML VIAL IV PRN (09:14)
[2021-11-07] MEDS ORDERED: ONDANSETRON INJ 2 MG/ML 2 ML VIAL IV PRN (09:14)
[2021-11-07] MEDS ORDERED: ATROPINE SULFATE 0.1 MG/ML 10ML SYR IV PRN (09:14)
[2021-11-07] MEDS ORDERED: ONDANSETRON INJ 2 MG/ML 2 ML VIAL ONE (09:38)
[2021-11-07] MEDS ORDERED: DEXAMETHASONE SOD INJ 4 MG/ML VIAL ONE (09:38)
[2021-11-07] MEDS ORDERED: NEOSTIGMINE METHYLSULFATE 1 MG/ML 10ML VIAL ONE (09:39)
[2021-11-07] MEDS ORDERED: GLYCOPYRROLATE 0.2 MG/ML VIAL ONE ×2 (09:39→10:28)
[2021-11-07] MEDS ORDERED: HYDROmorphone INJ 1 MG/ML SYRINGE ONE (09:43)
--- NOTE | 2021-11-07 09:58 | Hospitalist Progress Note ---
Date of Service November 07, 2021 Assessment & Plan (1) Appendicitis: Plan: Patient is 41 y/o M with PMH HTN, depression, tobacco use, alcohol use currently admitted for possible appendicitis 11/06/21 CT abdomen pelvis concerning for inflammatory change adjacent to appe ndix and terminal ileum with mild wall thickening of appendix and terminal ileum Receiving IV Zosyn per general surgery Patient underwent appendectomy earlier today Tolerated well Currently resting in no acute distress IVF Monitor CBC, BMP (2) Hypertension: Plan: In ER initial BP 168/104 down to 129/82 Likely elevated secondary to pain Monitor Currently blood pressure at goal Continue lisinopril (3) Depression: Plan: Continue sertraline, amitriptyline (4) Alcohol use: Plan: Drinks 5-10 beers daily. Denies history of alcohol withdrawal Alcohol withdrawal protocol with gabapentin Monitor closely Start daily thiamine and folic acid (5) Tobacco use: Plan: Smokes 1.5 packs/day Smoking cessation encouraged Nicotine patch (6) GERD (gastroesophageal reflux disease): Plan: Oral PPI converted to IV by general surgery DVT Prophylaxis SCDs Disposition per primary team Follows with Dr Woodard for routine care Thank you for this consultation. We will follow the patient with you during their hospital stay. You can [facility] via [employer] Admission and Anticipated Discharge Date Admission Date: November 06, 2021 Subjective Patient seen in follow-up after his appendicitis Medicine consulted for hypertension Currently blood pressure well controlled Patient is resting in bed, in no acute distress Denies fevers, chills, chest pain, shortness of breath, he only has minimal abdominal discomfort, reports feeling hungry Review of Systems Review of Systems: All systems reviewed & are unremarkable except as noted in Subjective Physical Exam Physical Exam: General: no distress, WDWN Head: normocephalic, atraumatic Eyes: conjunctiva non-injected, anicteric ENT: normal inspection external ears, nose, mucous membranes moist Neck: supple, trachea midline Lungs: clear, no respiratory distress, no wheezing/rhonchi/rales CV: RRR, no murmur, no pretibial edema Abd: slightly distended, normal BS, soft, + tender to palpation RLQ, small incisions dry, clen Ext: no cyanosis, no calf tenderness Neuro: A&O x 3, no focal deficits noted, normal affect Skin: warm, dry Results & Data Results & Data ([facility]) Vital Signs (Past 12 Hours) Vital Signs Temp Pulse Pulse Pulse Resp BP BP 11/07/21 07:20 36.7 C 76 18 120/80 11/07/21 07:21 70 124/87 11/07/21 00:00 11/06/21 22:50 36.6 C 63 18 113/73 Pulse Ox Pulse Ox O2 Del Method O2 Del Method 11/07/21 07:20 95 Room Air 11/07/21 07:21 93 Room Air 11/07/21 00:00 95 Room Air 11/06/21 22:50 97 Room Air Laboratory Results 11/07/21 11/07/21 11/06/21 Range/Units 06:59 06:59 16:25 WBC 9.99 (4.8-10.8) K/ul RBC 4.72 (4.63-6.08) M/uL Hgb 15.2 (14.0-18.0) g/dl Hct 45.0 (40.1-51.0) % MCV 95.3 (80.0-100.0) fL MCH 32.2 (25.0-34.0) pg MCHC 33.8 (32.0-36.0) g/dL RDW Std Deviation 47.8 H (36.4-46.3) fL RDW Coeff of Perri 13.5 (11.5-14.5) % Plt Count 133 (130-400) K/uL MPV 9.5 (9.4-12.4) fL Immature Gran % (Auto) 0.4 % Neut % (Auto) 69.7 % Lymph % (Auto) 20.3 % Glades % (Auto) 7.4 % Eos % (Auto) 1.9 % Baso % (Auto) 0.3 % Neut # (Auto) 6.96 H (1.4-6.5) K/uL Lymph # (Auto) 2.03 (1.2-3.4) K/uL Glades # (Auto) 0.74 (0.24-0.82) K/uL Eos # (Auto) 0.19 (0-0.50) K/uL Baso # (Auto) 0.03 (0-0.2) K/uL Immature Gran # (Auto) 0.04 H (0.00-0.02) K/uL Platelet Estimate Decreased L (Normal) Sodium 137 (136-145) mmol/L Potassium 3.9 (3.5-5.1) mmol/L Chloride 108 H (98-107) mmol/L Carbon Dioxide 26 (21-32) mmol/L Anion Gap 3 (3-11) BUN 7 (6-23) mg/dl Creatinine 0.72 (0.6-1.4) mg/dl Est Cr Clr Drug Dosing 132.3 ml/min Est GFR ( Amer) 132.4 ml/min Est GFR (Non-Af Amer) 114.3 ml/min BUN/Creatinine Ratio 9.7 L (10-20) Glucose 92 (70-99(Fasting)) mg/dl Calcium 7.7 L (8.5-10.1) mg/dl Total Bilirubin (0.2-1.0) mg/dl AST (13-39) U/L ALT (7-52) U/L Alkaline Phosphatase (34-104) U/L Total Protein (6.0-8.3) gm/dl Albumin (3.4-5.0) gm/dl Globulin (2.5-4.0) gm/dl Albumin/Globulin Ratio (0.9-2) Lipase (11-82) U/L SARS-CoV-2, RNA, NAAT NEGATIVE (NEGATIVE) 11/06/21 11/06/21 Range/Units 13:43 13:43 WBC 16.23 H (4.8-10.8) K/ul RBC 5.47 (4.63-6.08) M/uL Hgb 17.4 (14.0-18.0) g/dl Hct 50.6 (40.1-51.0) % MCV 92.5 (80.0-100.0) fL MCH 31.8 (25.0-34.0) pg MCHC 34.4 (32.0-36.0) g/dL RDW Std Deviation 45.8 (36.4-46.3) fL RDW Coeff of Perri 13.4 (11.5-14.5) % Plt Count 185 (130-400) K/uL MPV 9.9 (9.4-12.4) fL Immature Gran % (Auto) 0.5 % Neut % (Auto) 83.8 % Lymph % (Auto) 8.9 % Glades % (Auto) 5.4 % Eos % (Auto) 1.2 % Baso % (Auto) 0.2 % Neut # (Auto) 13.59 H (1.4-6.5) K/uL Lymph # (Auto) 1.45 (1.2-3.4) K/uL Glades # (Auto) 0.87 H (0.24-0.82) K/uL Eos # (Auto) 0.20 (0-0.50) K/uL Baso # (Auto) 0.04 (0-0.2) K/uL Immature Gran # (Auto) 0.08 H (0.00-0.02) K/uL Platelet Estimate (Normal) Sodium 136 (136-145) mmol/L Potassium 4.0 (3.5-5.1) mmol/L Chloride 104 (98-107) mmol/L Carbon Dioxide 26 (21-32) mmol/L Anion Gap 6 (3-11) BUN 8 (6-23) mg/dl Creatinine 0.69 (0.6-1.4) mg/dl Est Cr Clr Drug Dosing 149.7 ml/min Est GFR ( Amer) 134.8 ml/min Est GFR (Non-Af Amer) 116.3 ml/min BUN/Creatinine Ratio 11.6 (10-20) Glucose 97 (70-99(Fasting)) mg/dl Calcium 8.9 (8.5-10.1) mg/dl Total Bilirubin 1.0 (0.2-1.0) mg/dl AST 28 (13-39) U/L ALT 29 (7-52) U/L Alkaline Phosphatase 95 (34-104) U/L Total Protein 6.8 (6.0-8.3) gm/dl Albumin 4.2 (3.4-5.0) gm/dl Globulin 2.6 (2.5-4.0) gm/dl Albumin/Globulin Ratio 1.6 (0.9-2) Lipase 11 (11-82) U/L SARS-CoV-2, RNA, NAAT (NEGATIVE) Medications Administered Current Inpatient Medications Acetaminophen (Acetaminophen 1000 Mg/100 Ml Iv) 1,000 mg IV Q8H PRN PRN Reason: Mild Pain Stop: 11/09/21 19:50 Last Admin: 11/07/21 07:46 Dose: 1,000 mg Amitriptyline HCl (Amitriptyline Hcl 10 Mg Tab) 10 mg PO HS HUMAIRA Stop: 12/06/21 20:59 Last Admin: 11/06/21 21:22 Dose: 10 mg Atropine Sulfate (Atropine Sulfate 0.1 Mg/Ml 10ml Syr) 0.5 mg IV Q1M PRN PRN Reason: PACU Use-HR<40 &/or Bradycardi Stop: 11/07/21 17:14 Fentanyl Citrate (Fentanyl Citrate 100 Mcg/2 Ml Vial) 25 mcg IV Q5M PRN PRN Reason: PACU Use Only-Pain Stop: 11/07/21 17:14 Folic Acid (Folic Acid 1 Mg Tab) 1 mg PO QAM HUMAIRA Stop: 12/06/21 19:50 Last Admin: 11/07/21 07:22 Dose: 1 mg Gabapentin (Gabapentin 600 Mg Tab) 600 mg PO Q6H HUMAIRA Stop: 11/07/21 12:01 Last Admin: 11/07/21 05:09 Dose: 600 mg Gabapentin (Gabapentin 600 Mg Tab) 600 mg PO Q8H HUMAIRA Stop: 11/08/21 14:01 Gabapentin (Gabapentin 600 Mg Tab) 600 mg PO Q12H HUMAIRA Stop: 11/09/21 12:01 Gabapentin (Gabapentin 600 Mg Tab) 600 mg PO Q24H HUMAIRA Stop: 11/10/21 12:01 Sodium Chloride (Nss 1000ml) 1,000 mls @ 125 mls/hr IV .Q8H HUMAIRA Stop: 12/06/21 19:50 Last Infusion: 11/07/21 09:03 Dose: 0 mls/hr Piperacillin Sod/Tazobactam (Sod 3.375 gm/ Dextrose) 115 mls @ 28.75 mls/hr IV Q8H HUMAIRA; Protocol Stop: 11/17/21 01:29 Last Infusion: 11/07/21 07:27 Dose: Infused Pantoprazole Sodium 40 mg/ (Syringe) 10 mls @ 5 mls/min IV BID HUMAIRA Stop: 12/06/21 20:59 Last Admin: 11/07/21 07:23 Dose: 5 mls/min Lorazepam 1 mg/ Syringe 1 mls @ 2 mls/min IV ONE PRN; Protocol PRN Reason: EtoH Withdrawal AWSS 6-10 Stop: 12/06/21 19:50 Promethazine HCl 6.25 mg/ (Sodium Chloride) 50.25 mls @ 204 mls/hr IV ONCE PRN PRN Reason: PACU Use Only-Nausea/Vomiting Stop: 11/07/21 17:15 Ketorolac Tromethamine (Ketorolac 30 Mg/Ml Vial) 30 mg IV ONCE PRN PRN Reason: PACU Use Only-Pain Stop: 11/07/21 17:15 Labetalol HCl (Labetalol Hcl Iv 5 Mg/Ml 20ml) 5 mg IV Q5M PRN PRN Reason: PACU Use-SBP>160 or DBP>100 Stop: 11/07/21 17:15 Lisinopril (Lisinopril 2.5 Mg Tab) 2.5 mg PO DAILY [facility] Stop: 12/07/21 08:59 Last Admin: 11/07/21 07:22 Dose: 2.5 mg Miscellaneous (Remove Nicoderm Patch) 1 each N/A DAILY@0859 [facility] Stop: 12/07/21 08:58 Last Admin: 11/07/21 07:23 Dose: 1 each Morphine Sulfate (Morphine Sulfate 2 Mg/Ml Carp) 2 mg IV Q3H PRN PRN Reason: Pain (1,2,3,4,5) & Pre PT Stop: 11/20/21 19:50 Morphine Sulfate (Morphine Sulfate 4 Mg/Ml 1 Ml Carp\Vial) 4 mg IV Q3H PRN PRN Reason: Pain (6,7,8,9,10) Stop: 11/20/21 19:50 Last Admin: 11/07/21 08:15 Dose: 4 mg Nicotine (Nicotine 21 Mg/24 Hr Tdsy) 21 mg TD QAM [facility] Stop: 12/06/21 19:59 Last Admin: 11/07/21 07:22 Dose: 21 mg Ondansetron HCl (Ondansetron Inj 2 Mg/Ml 2 Ml Vial) 4 mg IV Q4H PRN PRN Reason: Nausea And Vomiting Stop: 12/06/21 19:50 Ondansetron HCl (Ondansetron Inj 2 Mg/Ml 2 Ml Vial) 4 mg IV ONCE PRN PRN Reason: PACU Use Only-Nausea/Vomiting Stop: 11/07/21 17:15 Sertraline HCl (Sertraline Hcl 50 Mg Tablet) 50 mg PO DAILY HUMAIRA Stop: 12/07/21 08:59 Last Admin: 11/07/21 07:22 Dose: 50 mg Thiamine HCl (Thiamine Hcl 100 Mg Tab) [facility] Stop: 12/06/21 19:59 Last Admin: 11/07/21 07:22 Dose: 100 mg
--- NOTE | 2021-11-07 10:33 | Post Operative Brief Note ---
PG Immediate Post Op with CF Date of Surgery November 07, 2021 Pre & Post Diagnosis Operation Date: 11/07/21 09:00 Pre-Op Diagnosis: Appendicitis. Post-Op Diagnosis: Appendicitis. I identified the patient and participated in the time-out.: Yes Procedure Operation Date: 11/07/21 09:00 Actual Procedures p Laparoscopic Appendectomy - Gonzalo Amador MD, FACS Surgeon Gonzalo Amador MD, FACS Chin Strap Sewer 0 Estimated Blood Loss 5 Findings Consistent with Post-Op Diagnosis Specimens Specimen Description: A. Appendix. Culture set #1 Intra abdomenial fluid.
[2021-11-07] MEDS: fentaNYL citrate 100 MCG/2 ML VIAL IV PRN ×4 (10:50→11:06)
--- NOTE | 2021-11-07 10:54 | Operative Report ---
PG Post Operative Report Pre & Post Diagnosis Operation Date: 11/07/21 09:00 Pre-Op Diagnosis: Appendicitis. Post-Op Diagnosis: Appendicitis. I identified the patient and participated in the time-out.: Yes Procedure Operation Date: 11/07/21 09:00 Actual Procedures p Laparoscopic Appendectomy - Gonzalo Amador MD, FACS The patient was brought into the operating theater general endotracheal anesthesia 2 g of Mefoxin given he had been on Zosyn and he was due for another dose but by the time we would get it inside the procedure 2 g Mefoxin abdomen was prepped byline solution properly draped timeout was had patient identified made a small transverse incision above the umbilicus and above the umbilical hernia that he had with some incarcerated fatty tissue but a centimeter or so Veress needle was introduced followed by CO2 at 15 mmHg followed by 5 mm trocar followed by the scope point of entry inspected no injury identified attention was turned to right lower quadrant he has fatty displacement on top of the area cannot identify the cecum and is slightly serous slightly sanguinous fluid was noted in the gutter) direct visualization we placed a 5 mm right upper trocar with preemptive local analgesic grasper was inserted at this point we mobilized the omentum that was draped over lower abdomen could identify the cecum but could not see the appendix this point we converted 5 mm supraumbilical port by enlarging the skin incision then dilated the tract and placed a 12 mm on direct visualization and a 5 mm was placed left lower quadrant preop and local analgesic and direct visualization camera was placed in left lower quadrant patient rotated to the left slight Trendelenburg and at this point we were able to maneuver the omentum off the cecum could identify the appendix with a generalized inflammation of the appendix there is no fibrinous exudate the appendix appeared little bit thick-walled more than 7 mm regarded by CAT scan and it seems to extend almost to the base of the cecum although the takeoff appeared to be normal no inflammation noted we also at this point to see the terminal ileum I could not see any inflammation in the terminal ileum there may been some fat engorgement of the antimesenteric surface creeping up but not a significant amount that I would suspect a Crohn's disease We created a window between the mesoappendix and the cecum use of bleed load purple 60 mm load and fired at the base of the appendix right of the cecum thickened mesentery to the appendix was taken down with clips the area there of the appendix not appear to be satisfactory we then placed the appendix in an Endopouch and took it out intact through the through the umbilical port the port was then reintroduced the plane meticulous dissection is seem to be losing around the area in the retroperitoneal at the base of the cecum we found a small lesion in the mesentery very minimal and fulgurated and we placed the patient reverse the Trendelenburg suction out all the fluid that is gone to the pelvic area once we are done hemostasis appear satisfactory. We then placed the camera in the right upper quadrant port and visualize the left lower quadrant port site and there was no obvious bleeding and also in the umbilical area and last we took out the right upper quadrant port after we have checked that there was no bleeding closed with fascial stitch of the supraumbilical area with 0 Vicryl [id number] times two 4-0 Monocryl used for the subcutaneous tissue and all 3 trochars and Steri-Strips applied procedure was tolerated well by the patient estimate blood loss 5 cc Surgeon Gonzalo Amador MD, FACS Bar Tacker 0 Estimated Blood Loss 5 Findings Consistent with Post-Op Diagnosis Acute appendicitis Specimens Appendix Indications Right lower quadrant pain CT scan question acute appendicitis versus reaction from terminal ileum ileitis Description of Procedure merda I attest to the content of the Intraoperative Record and any orders documented therein. Any exceptions are noted below.
--- NOTE | 2021-11-07 11:13 | Anesthesiology Progress Note ---
Date of Service November 07, 2021 Anesthesia Post Procedure Vital Signs Vital Signs: Temp Pulse Pulse Pulse Pulse Pulse Resp 11/07/21 11:05 84 15 11/07/21 10:55 81 23 11/07/21 10:45 36.3 C L 73 11 L 11/07/21 07:20 36.7 C 76 18 11/07/21 07:21 70 11/07/21 00:00 11/06/21 19:51 11/06/21 22:50 36.6 C 63 18 11/06/21 19:51 36.6 C 70 16 11/06/21 19:35 78 19 11/06/21 19:00 84 18 11/06/21 17:32 94 H 20 11/06/21 16:00 92 H 20 11/06/21 14:49 84 18 11/06/21 12:46 37.1 C 105 H 20 BP BP BP Pulse Ox Pulse Ox O2 Del Method O2 Del Method 11/07/21 11:05 126/97 92 Nasal Cannula 11/07/21 10:55 142/92 H 92 Oxymask 11/07/21 10:45 129/90 93 Oxymask 11/07/21 07:20 120/80 95 Room Air 11/07/21 07:21 124/87 93 Room Air 11/07/21 00:00 95 Room Air 11/06/21 19:51 95 Room Air 11/06/21 22:50 113/73 97 Room Air 11/06/21 19:51 143/89 H 95 Room Air 11/06/21 19:35 119/87 98 Room Air 11/06/21 19:00 128/83 96 Room Air 11/06/21 17:32 123/74 96 Room Air 11/06/21 16:00 129/82 95 Room Air 11/06/21 14:49 168/104 H 97 Room Air 11/06/21 12:46 171/108 H 96 Room Air O2 Flow Rate 11/07/21 11:05 4 11/07/21 10:55 5 11/07/21 10:45 5 11/07/21 07:20 11/07/21 07:21 11/07/21 00:00 11/06/21 19:51 11/06/21 22:50 11/06/21 19:51 11/06/21 19:35 11/06/21 19:00 11/06/21 17:32 11/06/21 16:00 11/06/21 14:49 11/06/21 12:46 Pain Intensity Abdomen: Pain Intensity: 6 Transfer of Care Handoff Completed per policy Notes Mental Status: alert / awake / arousable Patient Amnestic to Procedure: Yes Nausea / Vomiting: adequately controlled Pain: adequately controlled Airway Patency, RR, SpO2: stable & adequate BP & HR: stable & adequate Hydration State: stable & adequate Anesthetic Complications: no major complications apparent
[2021-11-07] MEDS: MoRPHine SULFATE 2 MG/ML CARP IV PRN ×2 (11:42→14:57)
[2021-11-07] MEDS ORDERED: Nursing to Pharmacy Communication SCH (16:00)
[2021-11-07] MEDS: AMITRIPTYLINE HCL 10 MG TAB PO SCH (20:12)
[2021-11-08] MEDS: PIPERACILLIN/TAZOBACTAM 3.375 GM in DEXTROSE 5% 100 ML IV SCH (03:18)
[2021-11-08] MEDS: SODIUM CHLORIDE 0.9% 1000ML 1,000 ML IV SCH (03:19)
[2021-11-08] MEDS: ACETAMINOPHEN 1000 MG/100 ML IV IV PRN (03:28)
[2021-11-08] MEDS: MoRPHine SULFATE 4 MG/ML 1 ML CARP\\VIAL IV PRN (03:28)
[2021-11-08] MEDS ORDERED: oxyCODONE HCL IR 5 MG TAB (IMMEDIATE RELEASE) PO PRN (03:39)
--- NOTE | 2021-11-08 05:16 | Surgery Progress Note ---
Date of Service November 08, 2021 Assessment & Plan (1) Appendicitis: Plan: Status post laparoscopic appendectomy on 11/07/2021 (postop day #1) Continue analgesics Continue antiemetics Continue diet as tolerated Continue antibiotics in the form of Zosyn while hospitalized Check a.m. labs when available Increase mobilization as able If a.m. labs are acceptable and patient continues to do well clinically we will consider discharge home later today Admission and Anticipated Discharge Date Admission Date: November 06, 2021 Supervising Physician Co-Signing Physician Notes As per Otto Diehl physician rehab assistant Patient resting comfortably minimal discomfort the abdomen is softly distended nontender trocar sites with no drainage Steri-Strips intact Intraoperative finding was discussed with the patient Patient can be discharged today instruction to call our office to make a follow- up appoint in approximately [address] until we see him and certainly not return back to work until we see him Subjective Patient is resting comfortably in bed. He notes an uneventful night. He denies any fevers, shakes, or chills. Since his surgery he has tolerated solid food. He denies any nausea or vomiting. He says he is voiding without difficulty. He does note some incisional pain which is different from the pain at the time of his presentation to the hospital. Physical Exam Gastrointestinal (Abdomen): Abdomen is soft, nonrigid, nondistended. Incisions are clean, dry, intact. Bowel sounds are hypoactive. Appropriate pain is noted with palpation near surgical incisions. Results & Data ([facility]) Vital Signs (Past 12 Hours) Vital Signs Temp Pulse Pulse Resp BP Pulse Ox O2 Del Method 11/08/21 03:21 36.5 C 85 16 136/91 92 Room Air 11/08/21 00:00 36.9 C 103 H 20 120/72 93 Room Air 11/07/21 19:56 Room Air 11/07/21 19:41 36.6 C 124 H 18 144/84 H 93 Room Air PG Care Time/CCT Total # of Minutes Spent Total Time Spent with Patient: Total time spent is greater than 50% in coordination of care (as documented) at patient's floor/unit and/or counseling patient: Coding Level of Care Code None Diagnoses Appendicitis K37
[2021-11-08] MEDS: GABAPENTIN 600 MG TAB PO SCH (06:10)
[2021-11-08 06:38] LABS: Basophils # (auto) 0.02 K/uL (0-0.2); Basophils % (auto) 0.2 %; Eosinophils # (auto) 0.09 K/uL (0-0.50); Eosinophils % (auto) 0.7 %; Hematocrit (blood only) 40.7 % (40.1-51.0); Hemoglobin 13.9 g/dl (14.0-18.0); Immature Granulocytes # (auto) 0.05 K/uL (0.00-0.02); Immature Granulocytes % (auto) 0.4 %; Lymphocytes # (auto) 2.21 K/uL (1.2-3.4); Lymphocytes % (auto) 17.5 %; Mean Corpuscular Hemoglobin 31.9 pg (25.0-34.0); Mean Corpuscular Hgb Conc 34.2 g/dL (32.0-36.0); Mean Corpuscular Volume 93.3 fL (80.0-100.0); Mean Platelet Volume 9.9 fL (9.4-12.4); Monocytes # (auto) 0.84 K/uL (0.24-0.82); Monocytes % (auto) 6.7 %; Neutrophils % (auto) 74.5 %; Platelet Count 143 K/uL (130-400); RDW Coefficient of Variation 12.9 % (11.5-14.5); RDW Standard Deviation 44.5 fL (36.4-46.3); Red Blood Count 4.36 M/uL (4.63-6.08); White Blood Count 12.61 K/ul (4.8-10.8)
[2021-11-08 07:05] LABS: BUN Creatinine Ratio 8.5 (10-20); Calcium 7.6 mg/dl (8.5-10.1); Creatinine Clr Calc Pharmacy 134.2 ml/min; Est GFR (African American) 133.2 ml/min; Est GFR (Non-African American) 114.9 ml/min; Potassium 3.6 mmol/L (3.5-5.1)
[2021-11-08] MEDS: lisinopril 2.5 MG TAB PO SCH (07:36)
[2021-11-08] MEDS: FOLIC ACID 1 MG TAB PO SCH (07:36)
[2021-11-08] MEDS: PANTOprazole 40 MG in SYRINGE 0 ML IV SCH (07:36)
[2021-11-08] MEDS: SERTRALINE HCL 50 MG TABLET PO SCH (07:36)
[2021-11-08] MEDS: NICOTINE 21 MG/24 HR TDSY TD SCH (07:37)
[2021-11-08] MEDS: THIAMINE HCL 100 MG TAB PO SCH (07:37)
--- NOTE | 2021-11-08 08:44 | Hospitalist Progress Note ---
Date of Service November 08, 2021 Assessment & Plan (1) Appendicitis: Plan: Patient is 41 y/o M with PMH HTN, depression, tobacco use, alcohol use currently admitted for possible appendicitis 11/06/21 CT abdomen pelvis concerning for inflammatory change adjacent to appe ndix and terminal ileum with mild wall thickening of appendix and terminal ileum Receiving IV Zosyn per general surgery Patient underwent appendectomy yesterday Tolerated well Currently resting in no acute distress IVF Monitor CBC, BMP (2) Hypertension: Plan: In ER initial BP 168/104 down to 129/82 Likely elevated secondary to pain Monitor blood pressure at goal during the admission Continue lisinopril On discharge, recommend to monitor blood pressure at home, and follow-up with PCP (3) Depression: Plan: Continue sertraline, amitriptyline (4) Alcohol use: Plan: Drinks 5-10 beers daily. Denies history of alcohol withdrawal Alcohol withdrawal protocol with gabapentin Monitor closely Started daily thiamine and folic acid (5) Tobacco use: Plan: Smokes 1.5 packs/day Smoking cessation encouraged Nicotine patch (6) GERD (gastroesophageal reflux disease): Plan: Cont. PPI DVT Prophylaxis SCDs Disposition per primary team Follows with Dr Woodard for routine care Thank you for this consultation. We will follow the patient with you during their hospital stay. You [facility] via Feedback Admission and Anticipated Discharge Date Admission Date: November 06, 2021 Subjective Patient seen in follow-up after his appendicitis Medicine consulted for hypertension Since admission blood pressures been pretty well controlled Patient is resting in bed, in no acute distress Denies fevers, chills, chest pain, shortness of breath, he only has minimal abdominal discomfort He is tolerating food, passing gas, no nausea or vomiting Review of Systems Review of Systems: All systems reviewed & are unremarkable except as noted in Subjective Physical Exam Physical Exam: General: no distress, WDWN M Head: normocephalic, atraumatic Eyes: conjunctiva non-injected, anicteric ENT: normal inspection external ears, nose, mucous membranes moist Neck: supple, trachea midline Lungs: clear, no respiratory distress, no wheezing/rhonchi/rales CV: RRR, no murmur, no pretibial edema Abd: slightly distended, normal BS, soft, + tender to palpation RLQ, small surg. incisions dry, clean Ext: no calf tenderness, moves extremities Neuro: A&O x 3, no focal deficits noted, normal affect Skin: warm, dry Results & Data Results & Data ([facility]) Vital Signs (Past 12 Hours) Vital Signs Temp Pulse Pulse Resp BP BP Pulse Ox 11/08/21 07:32 36.6 C 79 16 163/93 H 94 11/08/21 03:21 36.5 C 85 16 136/91 92 11/08/21 00:00 36.9 C 103 H 20 120/72 93 O2 Del Method 11/08/21 07:32 Room Air 11/08/21 03:21 Room Air 11/08/21 00:00 Room Air Laboratory Results 11/08/21 11/08/21 Range/Units 06:09 06:09 WBC 12.61 H (4.8-10.8) K/ul RBC 4.36 L (4.63-6.08) M/uL Hgb 13.9 L (14.0-18.0) g/dl Hct 40.7 (40.1-51.0) % MCV 93.3 (80.0-100.0) fL MCH 31.9 (25.0-34.0) pg MCHC 34.2 (32.0-36.0) g/dL RDW Std Deviation 44.5 (36.4-46.3) fL RDW Coeff of Perri 12.9 (11.5-14.5) % Plt Count 143 (130-400) K/uL MPV 9.9 (9.4-12.4) fL Immature Gran % (Auto) 0.4 % Neut % (Auto) 74.5 % Lymph % (Auto) 17.5 % Freestone % (Auto) 6.7 % Eos % (Auto) 0.7 % Baso % (Auto) 0.2 % Neut # (Auto) 9.40 H (1.4-6.5) K/uL Lymph # (Auto) 2.21 (1.2-3.4) K/uL Freestone # (Auto) 0.84 H (0.24-0.82) K/uL Eos # (Auto) 0.09 (0-0.50) K/uL Baso # (Auto) 0.02 (0-0.2) K/uL Immature Gran # (Auto) 0.05 H (0.00-0.02) K/uL Sodium 137 (136-145) mmol/L Potassium 3.6 (3.5-5.1) mmol/L Chloride 108 H (98-107) mmol/L Carbon Dioxide 26 (21-32) mmol/L Anion Gap 3 (3-11) BUN 6 (6-23) mg/dl Creatinine 0.71 (0.6-1.4) mg/dl Est Cr Clr Drug Dosing 134.2 ml/min Est GFR ( Amer) 133.2 ml/min Est GFR (Non-Af Amer) 114.9 ml/min BUN/Creatinine Ratio 8.5 L (10-20) Glucose 112 H (70-99(Fasting)) mg/dl Calcium 7.6 L (8.5-10.1) mg/dl Medications Administered Current Inpatient Medications Acetaminophen (Acetaminophen 1000 Mg/100 Ml Iv) 1,000 mg IV Q8H PRN PRN Reason: Mild Pain Stop: 11/09/21 19:50 Last Admin: 11/08/21 03:28 Dose: 1,000 mg Amitriptyline HCl (Amitriptyline Hcl 10 Mg Tab) 10 mg PO HS HUMAIRA Stop: 12/06/21 20:59 Last Admin: 11/07/21 20:12 Dose: 10 mg Folic Acid (Folic Acid 1 Mg Tab) 1 mg PO QAM HUMAIRA Stop: 12/06/21 19:50 Last Admin: 11/08/21 07:36 Dose: 1 mg Gabapentin (Gabapentin 600 Mg Tab) 600 mg PO Q8H HUMAIRA Stop: 11/08/21 14:01 Last Admin: 11/08/21 06:10 Dose: 600 mg Gabapentin (Gabapentin 600 Mg Tab) 600 mg PO Q12H HUMAIRA Stop: 11/09/21 12:01 Gabapentin (Gabapentin 600 Mg Tab) 600 mg PO Q24H HUMAIRA Stop: 11/10/21 12:01 Sodium Chloride (Nss 1000ml) 1,000 mls @ 125 mls/hr IV .Q8H HUMAIRA Stop: 12/06/21 19:50 Last Admin: 11/08/21 03:19 Dose: 125 mls/hr Piperacillin Sod/Tazobactam (Sod 3.375 gm/ Dextrose) 115 mls @ 28.75 mls/hr IV Q8H HUMAIRA; Protocol Stop: 11/17/21 01:29 Last Infusion: 11/08/21 07:38 Dose: Infused Pantoprazole Sodium 40 mg/ (Syringe) 10 mls @ 5 mls/min IV BID [facility] Stop: 12/06/21 20:59 Last Admin: 11/08/21 07:36 Dose: 5 mls/min Lorazepam 1 mg/ Syringe 1 mls @ 2 mls/min IV ONE PRN; Protocol PRN Reason: EtoH Withdrawal AWSS 6-10 Stop: 12/06/21 19:50 Lisinopril (Lisinopril 2.5 Mg Tab) 2.5 mg PO DAILY [facility] Stop: 12/07/21 08:59 Last Admin: 11/08/21 07:36 Dose: 2.5 mg Miscellaneous (Remove Nicoderm Patch) 1 each N/A DAILY@0859 [facility] Stop: 12/07/21 08:58 Last Admin: 11/08/21 07:35 Dose: 1 each Morphine Sulfate (Morphine Sulfate 2 Mg/Ml Carp) 2 mg IV Q3H PRN PRN Reason: Pain (1,2,3,4,5) & Pre PT Stop: 11/20/21 19:50 Last Admin: 11/07/21 14:57 Dose: 2 mg Morphine Sulfate (Morphine Sulfate 4 Mg/Ml 1 Ml Carp\Vial) 4 mg IV Q3H PRN PRN Reason: Pain (6,7,8,9,10) Stop: 11/20/21 19:50 Last Admin: 11/08/21 03:28 Dose: 4 mg Nicotine (Nicotine 21 Mg/24 Hr Tdsy) 21 mg TD QAM [facility] Stop: 12/06/21 19:59 Last Admin: 11/08/21 07:37 Dose: 21 mg Ondansetron HCl (Ondansetron Inj 2 Mg/Ml 2 Ml Vial) 4 mg IV Q4H PRN PRN Reason: Nausea And Vomiting Stop: 12/06/21 19:50 Oxycodone HCl (Oxycodone Hcl Ir 5 Mg Tab (Immediate Release)) 5 mg PO Q6H PRN PRN Reason: Moderate Pain Stop: 11/22/21 03:38 Last Admin: 11/08/21 07:36 Dose: 5 mg Sertraline HCl (Sertraline Hcl 50 Mg Tablet) 50 mg PO DAILY [facility] Stop: 12/07/21 08:59 Last Admin: 11/08/21 07:36 Dose: 50 mg Thiamine HCl (Thiamine Hcl 100 Mg Tab) 100 mg PO [facility] Stop: 12/06/21 19:59 Last Admin: 11/08/21 07:37 Dose: 100 mg
[2021-11-09] MEDS ORDERED: GABAPENTIN 600 MG TAB PO SCH
--- NOTE | 2021-11-09 19:15 | Discharge Summary ---
Date of Service November 09, 2021 Admission HPI Per Admitting Provider This is a 41yM with a PMH of HTN and GERD who presents to the [facility] ED on 11/06/21 with complaints of abdominal pain. 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 He reports it's in the lower abdomen, worse on the R side. He rates his pain an 8/10 in severity, made worse with movement. He came into the ER due to his pain and symptoms. In the ER he underwent a CT a/p that revealed "inflammatory change adjacent to the appendix and terminal ileum with mild wall thickening involving both the appendix and terminal ileum, favoring a mild acute appendicitis with reactive change to the ileum. However, a terminal ileitis with reactive change to the appendix could also have a similar appearance." Patient denies any fevers, nausea/vomiting, or change in bowel habits. No prior abdominal surgical history. He does have a history of pancolitis in 2019. He states this feels different and is worse. He was suppose to follow up with GI and have a colonoscopy, however due to the co-pay he never followed through with the procedure. It was thought his symptoms were related to food intake at that time and he has not had any problems since then. He denies any personal or family history if inflammatory bowel disease. Patient has not had anything to eat today, but has drank a couple pepsi's and water, last around 1pm. Discharge Data Consultations 11/06/21 16:21 ED Decision to Admit Stat 11/06/21 17:21 Consult Hospitalist Stat Procedures Performed Operation Date: 11/07/21 09:00 Actual Procedures p Laparoscopic Appendectomy - Gonzalo Amador MD, [facility] Hospital Course (1) Appendicitis: This patient was admitted to [facility] on 11/06/2021. Patient presented with abdominal pain greatest in the right lower quadrant. Labs and CT scan were concerning for either acute appendicitis or colitis. It was felt to be certain patient was suffering from acute appendicitis he should be observed on antibiotics. After 1 day in the hospital he continued have right lower quadrant pain and he continued to exhibit leukocytosis so Dr. Amador took the patient to the operating room on 11/07/2021 at which time he performed a laparoscopic appendectomy. The surgery was uneventful. Postoperatively the patient's diet was advanced as tolerated. He was discharged home on postop day #1 which was 11/08/2021 after an uneventful hospital course. He was instructed on appropriate wound care diet and activity. He was told to follow-up with his surgeon in 1 to 2 weeks. Coding Level of Care Code None Diagnoses Appendicitis K37
[2021-11-10] MEDS ORDERED: GABAPENTIN 600 MG TAB PO SCH (12:00)
== END 2021-11-08 10:42 | disposition home or self-care (01) ==
LOC: 3W 12:41 → ED 12:41 → 3W 19:35 → UNDODISOB 11-08 09:45

== ENCOUNTER 2024-06-02 11:12 | Inpatient (IN) ==
--- OUTSIDE RECORDS SUMMARY | 2024-06-02 11:17 | External Medical Summary | Summary of Care ---
Author Name Unknown Organization [facility] Address [address] [place] [address] Phone [phone] Care Team Providers Care Waste Paper Hammermill Operator Name Role Phone Jackie Schaeffer MD Primary Care Provider [phone] Reason for Visit * Reason Onset Date Comments Letter Requests 11/29/2023 Encounter Details Date Type Department Care Team (Late st Contact Info) Description 11/29/2023 Telephone Family Practice [facility] 200 [facility] [place] [address] Jackie Schaeffer MD [address] [place] [address] Letter Requests Allergies Active Allergy Reactions Criticality Noted Date Comments Shellfish-Derived Products Hives High 3 Other Reaction(s): Swelling of Lip/Tongue/Throat Bupropion Hcl Hives Low 08/20/2010 documented as of this encounter (statuses as of 12/06/2023) Medications Medication Sig Dispensed Refills Start Date End Date Status omeprazole (PRILOSEC) 20 MG CPDR Take 1 Cap by mouth 2 times a day. 30 minutes before a meal 60 Cap 11 03/01/2018 Active Amitriptyline HCl 10 MG Oral Tablet (Elavil)Indications: Migraine without aura and without status migrainosus, not intractable Take 1 Tablet by mouth at bedtime. 90 Tablet 5 12/15/2022 Active Lisinopril 10 MG Oral Tablet (Prinivil)Indication s:HTN, goal below 140/90 TAKE 1 TABLET BY MOUTH IN THE MORNING 90 Tablet 3 08/04/2023 Active Sertraline HCl 50 MG Oral Tablet (Zoloft) TAKE 1 TABLET BY MOUTH IN THE MORNING 90 Tablet 1 09/09/2023 Active Ibuprofen 200 MG Oral TabletIndications:Ce llulitis of left foot,Insect bite of left foot, initial encounter,Swelling of left foot Take 1 Tablet by mouth every 8 hours as needed for Pain, Moderate or Other (swelling). 09/13/2023 Active Nystatin 886427 UNIT/GM External Powder (Nystop)Indications: Intertrigo of web of toe Apply topically to affected area 3 times a day. Both feet 4th webspace x 2-4 weeks 30 g 09/15/2023 Active predniSONE 10 MG Oral Tablet (Deltasone)Indicatio ns:Cellulitis of left foot,Swelling of left foot,Insect bite of left foot, initial encounter,Alcohol consumption of more than four drinks per day Take 5 tabs for 2 days ,4 tabs for 2 days, 3 tabs for 2 days, 2 tabs for 2 days 1 tab for 2 days 30 Tablet 09/15/2023 Active predniSONE 10 MG Oral Tablet (Deltasone)Indicatio ns:Acute idiopathic gout of left foot Take 1 tab for 4 days, 1/2 tab for 4 days from 09/25/23 Do not start before September 25, 2023. 6 Tablet 09/25/2023 Active documented as of this encounter (statuses as of 12/06/2023) Active Problems Problem Noted Date Diagnosed Date Hyponatremia 09/19/2023 Elevated alkaline phosphatase level 09/19/2023 Acute idiopathic gout of left foot 09/19/2023 Elevated hemoglobin 09/19/2023 Alcohol consumption of more than four drinks per day 09/15/2023 Food insecurity 12/28/2021 Overview: Per [facility] Protocol Gastroesophageal reflux disease without esophagi tis 11/04/2014 BRONCHOSPASM 10/03/2005 Shortness of breath 10/03/2005 Chest pain 10/03/2005 Tobacco use disorder 10/03/2005 documented as of this encounter (statuses as of 12/06/2023) Immunizations Name Administration Dates Next Due Pneumococcal Conjugate Vaccine, 20-valent (Prevn ar20) 12/15/2022 Pneumococcal Polysaccharide PPV23 (Pneumovax) Seasonal Influenza, PF, 6 M & above, IM , (FluLaval or Fluzone) 03/20/2020,02/15/2018 TD - Tetanus/Diptheria (ADULT) 08/16/2005 TDAP (age 10 and older)(Boostrix) 12/15/2022 TDAP, Age 7 and older, IM (Adacel) 08/26/2010 documented as of this encounter Social History Tobacco Use Types Packs/Day Years Used Date Smoking Tobacco: Every Day Cigarettes 0.5 10 Smokeless Tobacco: Never Alcohol Use Standard Drinks/Week Comments Yes 0 (1 standard drink = 0.6 oz pur e alcohol) occ PHQ-2 Answer Date Recorded PHQ Adult Total Score 0 09/15/2023 Hunger Vital Sign Answer Date Recorded Within the past 12 months, y ou worried that your food would run out before you got the money to buy more. Sometimes true Within the past 12 months, t he food you bought just didn't last and you didn't have money to get more. Sometimes true Utilities Answer Date Recorded Do you have trouble paying y our heating, water, or electric bill? (Adult - for ages 18 years and over) Not on file 10/04/2023 Is your family able to pay t he heat, water, or electric bill? (Household - for ages 0-17 years) Not on file 10/04/2023 Does your family have access to good internet? (Household - for ages 0-17 years) Not on file 10/04/2023 Social Connections Answer Date Recorded How often do you feel lonely or isolated from those around you? (Adult - for ages 18 years and over) Not on file 10/04/2023 Sex and Gender Information Value Date Recorded Sex Assigned at Not on file Gender Identity Male 11/13/2021 11:04 AM EDT Sexual Orientation Straight 11/13/2021 11 :04 AM EDT Job Start Date Occupation Industry Not on file Not on file Not on file documented as of this encounter Miscellaneous Notes * Telephone Encounter - Jackie Schaeffer MD - 12/06/2023 12:39 PM EDT Reviewed, okay to forward to patient * Telephone Encounter - Paula Lira RN - 12/06/2023 11:58 AM EDT Letter pended. Please review. * Telephone Encounter - Jackie Schaeffer MD - 12/01/2023 9:41 AM EDT OK to create letter and fax * Telephone Encounter - Paula Lira RN - 11/29/2023 11:26 AM EDT Pt needs letter today or else he can't drive. * Telephone Encounter - Yancy Ochoa LPN - 11/29/2023 11:15 AM EDT Patient calling in stating that he is on Zoloft and due to federal regulation he needs a letter created that stating that he is competent and capable of operating a motor vehicle. 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 He tried to renew DOT physical over the weekend but was informed of the letter that he needs. Please call patient when completed and fax to [facility] fax number: [phone] Called and spoke to Nava in office, she will bring to Dr. Schaeffer's attention. * Telephone Encounter - Marleny Weber OSA - 11/29/2023 11:12 AM EDT Reason for patient's call: Pt is requesting to speak to a nurse regarding letter that he needs Caller was transferred to Yancy at the clinic. 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 Does the letter need to provide any specific information: Would you like letter faxed or picked up?: tack picker Number to be called when ready to be picked up: [phone] Date needed: hien documented in this encounter Plan of Treatment Health Maintenance Due Date Last Done Comments Hepatitis B Vaccine (1 of 3 - 19+ 3-dose series) 1997 COVID-19 Vaccine ( - 2022-24 season) 2022 Cologuard 09/21/2023 Colonoscopy 09/21/2023 Colorectal Cancer Screening 09/21/2023 Fecal Occult Blood Test 09/21/2023 Sigmoidoscopy 09/21/2023 Influenza Vaccine (FLU shot) (#1) 2023 03/20/2020, 02/15/2018 Depression Screening 09/14/2024 09/15/2023 Diabetes Screening 09/14/2026 09/15/2023, 0 04/29/2023, 04/26/2023, Additional history exists Lipid Panel 04/26/2028 04/26/2023, 04/19, 08/07/2010 DTaP,Tdap,and Td Vaccines (3 - Td or Tdap) 12/15/2032 12/15/2022, 08/26/2010, 08/16/2005 Pneumococcal Vaccine: Pediatrics (0 to 5 Years) and At-Risk Patients (6 to 64 Years) Completed 12/15/2022, 12/24/2008 HPV (Gardasil) Vaccine Aged Out No lo nger eligible based on patient's age to complete this topic MENINGOCOCCAL (MENACTRA/MENVEO) Aged Out No longer eligible based on patient's age to complete this topic documented as of this encounter Medical Devices Not on filedocumented as of this encounter Care Teams Waste Paper Hammermill Operator Relationship Specialty Start Date End Date Jackie Schaeffer MD [address] [place] [address] PCP - General Family Medicine 04/26/23 documented as of this encounter
--- OUTSIDE RECORDS SUMMARY | 2024-06-02 11:17 | External Medical Summary | Summary of Care ---
Author Name Unknown Organization [facility] Address [address] [place] [address] Phone [phone] Care Team Providers Care Health Insurance Adjuster Name Role Phone Jackie Schaeffer MD Primary Care Provider [phone] Reason for Visit * Reason Onset Date Comments Letter Requests 11/29/2023 Encounter Details Date Type Department Care Team (Late st Contact Info) Description 11/29/2023 Telephone Family Practice [facility] 200 [facility] [place] [address] Jackie Schaeffer MD [address] [place] [address] Letter Requests Allergies Active Allergy Reactions Criticality [...] Moderate or Other (swelling). 09/13/2023 Active Nystatin 552404 UNIT/GM External Powder (Nystop)Indications: Intertrigo of web [...] day 09/15/2023 Food insecurity 12/28/2021 Overview: Per [facility] Protocol Gastroesophageal reflux disease without [...] encounter Miscellaneous Notes * Telephone Encounter - Paula Lira RN [...] call patient when completed and fax to [facility] fax number: [phone] Called and spoke to Nava in office, [...] you like letter faxed or picked up?: slate picker Number to be called when ready to be picked up: [phone] Date needed: hien documented in this encounter [...] filedocumented as of this encounter Care Teams Health Insurance Adjuster Relationship Specialty Start Date End Date Jackie Schaeffer MD [address] [place] [address] PCP - General Family Medicine 04/26/23 documented as of this encounter
--- OUTSIDE RECORDS SUMMARY | 2024-06-02 11:17 | External Medical Summary | Summary of Care ---
Author Name Unknown Organization [facility] Address [address] [place] [address] Phone [phone] Care Team Providers Care Senior Boiler Operator Name Role Phone Jackie Schaeffer MD Primary Care Provider [phone] Reason for Visit * Reason Comments eRx-Medication Refill Encounter Details Date Type Department Care Team (Late st Contact Info) Description 12/12/2023 Refill Family Practice [facility] [address] [facility] [place] [id number] [facility] [address] Allergies Active Allergy Reactions Criticality Noted Date Comments Shellfish-Derived Products Hives High 3 Other Reaction(s): Swelling of Lip/Tongue/Throat Bupropion Hcl Hives Low 08/20/2010 documented as of this encounter (statuses as of 12/14/2023) Medications Medication Sig Dispensed Refills Start Date End Date Status omeprazole (PRILOSEC) 20 MG CPDR Take 1 Cap by mouth 2 times a day. 30 minutes before a meal 60 Cap 11 03/01/2018 Active Amitriptyline HCl 10 MG Oral Tablet (Elavil)Indicatio ns:Migraine without aura and without status migrainosus, not intractable Take 1 Tablet by mouth at bedtime. 90 Tablet 5 12/15/2022 Active Lisinopril 10 MG Oral Tablet (Prinivil)Indicat ions:HTN, goal below 140/90 TAKE 1 TABLET BY MOUTH IN THE MORNING 90 Tablet 3 08/04/2023 Active Ibuprofen 200 MG Oral TabletIndications :Cellulitis of left foot,Insect bite of left foot, initial encounter,Swellin g of left foot Take 1 Tablet by mouth every 8 hours as needed for Pain, Moderate or Other (swelling). 09/13/2023 Active Nystatin 933146 UNIT/GM External Powder (Nystop)Indicatio ns:Intertrigo of web of toe Apply topically to affected area 3 times a day. Both feet 4th webspace x 2-4 weeks 30 g 09/15/2023 Active predniSONE 10 MG Oral Tablet (Deltasone)Indica tions:Cellulitis of left foot,Swelling of left foot,Insect bite of left foot, initial encounter,Alcohol consumption of more than four drinks per day Take 5 tabs for 2 days ,4 tabs for 2 days, 3 tabs for 2 days, 2 tabs for 2 days 1 tab for 2 days 30 Tablet 09/15/2023 Active predniSONE 10 MG Oral Tablet (Deltasone)Indica tions:Acute idiopathic gout of left foot Take 1 tab for 4 days, 1/2 tab for 4 days from 09/25/23 Do not start before September 25, 2023. 6 Tablet 09/25/2023 Active Sertraline HCl 50 MG Oral Tablet (Zoloft) TAKE 1 TABLET BY MOUTH IN THE MORNING 90 Tablet 1 12/14/2023 Active Sertraline HCl 50 MG Oral Tablet (Zoloft) TAKE 1 TABLET BY MOUTH IN THE MORNING 90 Tablet 1 09/09/2023 Discontinued documented as of this encounter (statuses as of 12/14/2023) Active Problems Problem Noted Date Diagnosed Date Hyponatremia 09/19/2023 Elevated alkaline phosphatase level 09/19/2023 Acute idiopathic gout of left foot 09/19/2023 Elevated hemoglobin 09/19/2023 Alcohol consumption of more than four drinks per day 09/15/2023 Food insecurity 12/28/2021 Overview: Per [facility] Protocol Gastroesophageal reflux disease without esophagi tis 11/04/2014 BRONCHOSPASM 10/03/2005 Shortness of breath 10/03/2005 Chest pain 10/03/2005 Tobacco use disorder 10/03/2005 documented as of this encounter (statuses as of 12/14/2023) Immunizations Name Administration Dates Next Due Pneumococcal [...] encounter Miscellaneous Notes * Telephone Encounter - Edis [place], [facility] - 12/14/2023 7:58 AM EDTSigned Prescriptions: Disp Refills Sertraline HCl 50 MG Oral Tablet (Zoloft) 90 Tab*1 Sig: TAKE 1 TABLET BY MOUTH IN THE MORNINGAuthorizing Provider: Lata SCHAEFFER User: EDIS SAMSON---- documented in this encounter Plan of Treatment Health Maintenance Due Date Last Done Comments Hepatitis B Vaccine (1 of 3 - 19+ 3-dose series) 1997 COVID-19 Vaccine (2022-24 season) 2022 Cologuard 09/21/2023 Colonoscopy 09/21/2023 Colorectal Cancer Screening 09/21/2023 Fecal Occult Blood Test 09/21/2023 Sigmoidoscopy 09/21/2023 Influenza Vaccine (FLU shot) (#1) 2023 03/20/2020, 02/15/2018 Depression Screening 09/14/2024 09/15/2023 Diabetes Screening 09/14/2026 09/15/2023, 0 04/29/2023, 04/26/2023, Additional history exists Lipid Panel 04/26/2028 04/26/2023, 04/19, 08/07/2010 DTap/Tdap Vaccines (3 - Td or Tdap) 12/15/2032 [...] filedocumented as of this encounter Care Teams Senior Boiler Operator Relationship Specialty Start Date End Date Jackie Schaeffer MD [address] [place] [address] PCP - General Family Medicine 04/26/23 documented as of this encounter
--- OUTSIDE RECORDS SUMMARY | 2024-06-02 11:17 | External Medical Summary | Summary of Care ---
Author Name Unknown Organization [facility] Address [address] [place] [address] Phone [phone] Care Team Providers Care Supervisor Remelt Name Role Phone Jackie Schaeffer MD Primary Care Provider [phone] Reason for Visit * Reason Comments eRx-Medication Refill Encounter Details Date Type Department Care Team (Late st Contact Info) Description 04/04/[address] [facility] 200 [facility] [place] [id number] Omari Eaton III, MD 200 [facility] [address] Migraine without aura and without status migrainosus, not intractable Allergies Active Allergy Reactions Criticality Noted Date Comments Shellfish-Derived Products Hives High 3 Other Reaction(s): Swelling of Lip/Tongue/Throat Bupropion Hcl Hives Low 08/20/2010 documented as of this encounter (statuses as of 04/05/2024) Medications omeprazole (PRILOSEC) 20 MG CPDR Take 1 Cap by mouth 2 times a day. 30 minutes before a meal 60 Cap 11 03/01/20 18 Active Lisinopril 10 MG Oral Tablet (Prinivil)Indic ations:HTN, goal below 140/90 TAKE 1 TABLET BY MOUTH IN THE MORNING 90 Tablet 3 08/04/19 24 Active Ibuprofen 200 MG Oral TabletIndicatio ns:Cellulitis of left foot,Insect bite of left foot, initial encounter,Swell ing of left foot Take 1 Tablet by mouth every 8 hours as needed for Pain, Moderate or Other (swelling). 09/13/19 24 Active Nystatin 874837 UNIT/GM External Powder (Nystop)Indicat ions:Intertrigo of web of toe Apply topically to affected area 3 times a day. Both feet 4th webspace x 2-4 weeks 30 g 09/15/19 24 Active predniSONE 10 MG Oral Tablet (Deltasone)Theresa cations:Celluli tis of left foot,Swelling of left foot,Insect bite of left foot, initial encounter,Alcoh ol consumption of more than four drinks per day Take 5 tabs for 2 days ,4 tabs for 2 days, 3 tabs for 2 days, 2 tabs for 2 days 1 tab for 2 days 30 Tablet 09/15/19 24 Active predniSONE 10 MG Oral Tablet (Deltasone)Theresa cations:Acute idiopathic gout of left foot Take 1 tab for 4 days, 1/2 tab for 4 days from 09/25/23 Do not start before September 25, 2023. 6 Tablet 09/25/19 24 Active Sertraline HCl 50 MG Oral Tablet (Zoloft) TAKE 1 TABLET BY MOUTH IN THE MORNING 90 Tablet 1 12/14/19 24 Active Amitriptyline HCl 10 MG Oral Tablet (Elavil)Indicat ions:Migraine without aura and without status migrainosus, not intractable Take 1 Tablet by mouth at bedtime. 90 Tablet 1 04/05/20 24 Active Amitriptyline HCl 10 MG Oral Tablet (Elavil)Indicat ions:Migraine without aura and without status migrainosus, not intractable Take 1 Tablet by mouth at bedtime. 90 Tablet 1 01/05/20 24 024 Discontinued documented as of this encounter (statuses as of 04/05/2024) Active Problems Problem Noted Date Diagnosed Date Hyponatremia 09/19/2023 Elevated alkaline phosphatase level 09/19/2023 Acute idiopathic gout of left foot 09/19/2023 Elevated hemoglobin 09/19/2023 Alcohol consumption of more than four drinks per day 09/15/2023 Food insecurity 12/28/2021 Overview: Per [facility] Protocol Gastroesophageal reflux disease without esophagi tis 11/04/2014 BRONCHOSPASM 10/03/2005 Shortness of breath 10/03/2005 Chest pain 10/03/2005 Tobacco use disorder 10/03/2005 documented as of this encounter (statuses as of 04/05/2024) Immunizations Name Administration Dates Next Due Pneumococcal [...] Recorded Sex Assigned at Not on file Legal Sex Male 7:10 AM EST Gender Identity Male 11/13/2021 11:04 AM EDT Sexual Orientation Straight 11/13/2021 11 :04 AM EDT 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 Not on file Not on file Not on file documented as of this encounter Miscellaneous Notes * Telephone Encounter - Karrie Williamson RPh - 04/05/2024 9:42 AM ESTSigned Prescriptions: Disp Refills Amitriptyline HCl 10 MG Oral Tablet (Elavi*90 Tab*1 Sig: Take 1 Tablet by mouth at bedtime.Authorizing Provider: OMARI EATON III User: KARRIE WILLIAMSON---- documented in this encounter Plan of Treatment Health Maintenance Due Date Last Done Comments Hepatitis B Vaccine (1 of 3 - 19+ 3-dose series) 1997 Cologuard 09/21/2023 Colonoscopy 09/21/2023 Colorectal Cancer Screening 09/21/2023 Fecal Occult Blood Test 09/21/2023 Sigmoidoscopy 09/21/2023 COVID-19 Vaccine ( season) 2023 Influenza Vaccine (FLU shot) (#1) 2023 03/20/2020, [...] Not on filedocumented as of this encounter Visit Diagnoses Diagnosis Migraine without aura and without status migrainosus, not intractable Migraine without aura, without mention of intractable migraine without mention of status migrainosus documented in this encounter Care Teams Supervisor Remelt Relationship Specialty Start Date End Date Jackie Schaeffer MD [address] [place] [address] PCP - General Family Medicine 04/26/23 documented as of this encounter
--- OUTSIDE RECORDS SUMMARY | 2024-06-02 11:17 | External Medical Summary | Summary of Care ---
Author Name Unknown Organization [facility] Address [address] [place] [address] Phone [phone] Care Team Providers Care Controller Operations And Hr Manager Name Role Phone Jackie Schaeffer MD Primary Care Provider [phone] Reason for Visit * Reason Onset Date Comments Medication Refill 01/04/2024 Encounter Details Date Type Department Care Team (Late st Contact Info) Description 01/04/2024 Refill Family Practice [facility] 200 [place] [address] Omari Eaton III, MD [facility] [address] Migraine without aura and without status migrainosus, not intractable Allergies Active Allergy Reactions Criticality Noted Date Comments Shellfish-Derived Products Hives High 3 Other Reaction(s): Swelling of Lip/Tongue/Throat Bupropion Hcl Hives Low 08/20/2010 documented as of this encounter (statuses as of 01/05/2024) Medications Medication Sig Dispensed Refills Start Date End Date Status omeprazole (PRILOSEC) 20 MG CPDR Take 1 Cap by mouth 2 times a day. 30 minutes before a meal 60 Cap 11 03/01/2018 Active Lisinopril 10 MG Oral Tablet (Prinivil)Indicat ions:HTN, goal below 140/90 TAKE 1 TABLET BY MOUTH IN THE MORNING 90 Tablet 3 08/04/2023 Active Ibuprofen 200 MG Oral TabletIndications :Cellulitis of left foot,Insect bite of left foot, initial encounter,Swellin g of left foot Take 1 Tablet by mouth every 8 hours as needed for Pain, Moderate or Other (swelling). 09/13/2023 Active Nystatin 023458 UNIT/GM External Powder (Nystop)Indicatio ns:Intertrigo of web [...] THE MORNING 90 Tablet 1 12/14/2023 Active Amitriptyline HCl 10 MG Oral Tablet (Elavil)Indicatio ns:Migraine without aura and without status migrainosus, not intractable Take 1 Tablet by mouth at bedtime. 90 Tablet 1 01/05/2024 Active Amitriptyline HCl 10 MG Oral Tablet (Elavil)Indicatio ns:Migraine without aura and without status migrainosus, not intractable Take 1 Tablet by mouth at bedtime. 90 Tablet 5 12/15/2022 01/04/2024 Discontinued (Refill) documented as of this encounter (statuses as of 01/05/2024) Active Problems Problem Noted Date Diagnosed Date [...] as of this encounter (statuses as of 01/05/2024) Immunizations Name Administration Dates Next Due Pneumococcal [...] encounter Miscellaneous Notes * Telephone Encounter - Thom Naranjo, [facility] - 01/05/2024 4:25 PM EDT Signed Prescriptions: Disp Refills Amitriptyline HCl 10 MG Oral Tablet (Elavi*90 Tab*1 Sig: Take 1 Tablet by mouth at bedtime.Authorizing Provider: OMARI EATON III User: THOM NARANJO AM documented in this encounter Plan of Treatment [...] migrainosus documented in this encounter Care Teams Controller Operations And Hr Manager Relationship Specialty Start Date End Date Jackie Schaeffer MD [address] [place] [address] PCP - General Family Medicine 04/26/23 documented as of this encounter
--- OUTSIDE RECORDS SUMMARY | 2024-06-02 11:17 | External Medical Summary | Summary of Care ---
Author Name Unknown Organization [facility] Address [address] [place] [address] Phone [phone] Care Team Providers Care Seasonal Package Handler Name Role Phone Jackie Schaeffer MD Primary Care Provider Reason for Visit * Reason Onset Date Comments Letter Requests 11/29/2023 Encounter Details Date Type Department Care Team (Late st Contact Info) Description 11/29/2023 Telephone Family Practice [facility] 200 [facility] [place] [address] Jackie Schaeffer MD [address] [place] [address] Letter Requests Allergies Active Allergy Reactions Criticality [...] Moderate or Other (swelling). 09/13/2023 Active Nystatin 291407 UNIT/GM External Powder (Nystop)Indications: Intertrigo of web [...] day 09/15/2023 Food insecurity 12/28/2021 Overview: Per [facility] Protocol Gastroesophageal reflux disease without [...] Encounter - Paula Lira RN - 12/06/2023 1:52 PM EDT Left message for pt. Letter at [facility]. * Telephone Encounter - Jackie Schaeffer MD [...] patient when completed and fax to [facility] [employer] fax number: [phone] Called and spoke to Nava in office, [...] you like letter faxed or picked up?: picker tender helper Number to be called when ready to be picked up: [phone] Date needed: hien documented in this encounter [...] filedocumented as of this encounter Care Teams Seasonal Package Handler Relationship Specialty Start Date End Date Jackie Schaeffer MD [address] [place] [address] PCP - General Family Medicine 04/26/23 documented as of this encounter
--- OUTSIDE RECORDS SUMMARY | 2024-06-02 11:17 | External Medical Summary | Summary of Care ---
Author Name Unknown Organization [facility] Address [address] [place] [address] Phone [phone] Care Team Providers Care Bed Laster Name Role Phone Jackie Schaeffer MD Primary Care Provider [phone] Reason for Visit * Reason Comments eRx-Medication Refill Encounter Details Date Type Department Care Team (Late st Contact Info) Description 04/26/2024 Refill Family Practice [facility] [address] [facility] [place] [id number] [facility]aeffer [facility] [id number] HTN, goal below 140/90 Allergies Active Allergy Reactions Criticality Noted Date Comments Shellfish-Derived Products Hives High 3 Other Reaction(s): Swelling of Lip/Tongue/Throat Bupropion Hcl Hives Low 08/20/2010 documented as of this encounter (statuses as of 04/26/2024) Medications omeprazole (PRILOSEC) 20 MG CPDR Take 1 Cap by mouth 2 times a day. 30 minutes before a meal 60 Cap 11 03/01/20 18 Active Ibuprofen 200 MG Oral TabletIndicatio ns:Cellulitis of left foot,Insect bite of left foot, initial encounter,Swell ing of left foot Take 1 Tablet by mouth every 8 hours as needed for Pain, Moderate or Other (swelling). 09/13/19 24 Active Nystatin [id number] UNIT/GM External Powder (Nystop)Indicat ions:Intertrigo of web [...] bedtime. 90 Tablet 1 04/05/20 24 Active Lisinopril 10 MG Oral Tablet (Prinivil)Indic ations:HTN, goal below 140/90 TAKE 1 TABLET BY MOUTH IN THE MORNING 90 Tablet 04/26/19 25 Active Lisinopril 10 MG Oral Tablet (Prinivil)Indic ations:HTN, goal below 140/90 TAKE 1 TABLET BY MOUTH IN THE MORNING 90 Tablet 3 08/04/19 24 025 Discontinued documented as of this encounter (statuses as of 04/26/2024) Active Problems Problem Noted Date Diagnosed Date Hyponatremia 09/19/2023 Elevated alkaline phosphatase level 09/19/2023 Acute idiopathic gout of left foot 09/19/2023 Elevated hemoglobin 09/19/2023 Alcohol consumption of more than four drinks per day 09/15/2023 Food insecurity 12/28/2021 Overview: Per [facility] Protocol Gastroesophageal reflux disease without esophagi tis 11/04/2014 BRONCHOSPASM 10/03/2005 Shortness of breath 10/03/2005 Chest pain 10/03/2005 Tobacco use disorder 10/03/2005 documented as of this encounter (statuses as of 04/26/2024) Immunizations Name Administration Dates Next Due Pneumococcal [...] 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 Not on file Not on file Not on file documented as of this encounter Miscellaneous Notes * Telephone Encounter - Tereso Beckett [facility] - 04/26/2024 7:58 PM ESTSigned Prescriptions: Disp Refills Lisinopril 10 MG Oral Tablet (Prinivil) 90 Tab*0 Sig: TAKE 1 TABLET BY MOUTH IN THE MORNINGAuthorizing Provider: Lata SCHAEFFER User: TERESO BECKETT--- documented in this encounter Plan of Treatment [...] 5 Years) and At-Risk Patients (6 to 18 Years and 19+ Years) Completed 12/15/2022, 12/24/2008 HPV (Gardasil) Vaccine Aged Out No lo nger eligible based on patient's age to complete this topic MENINGOCOCCAL (MENACTRA/MENVEO) Aged Out No longer eligible based on patient's age to complete this topic documented as of this encounter Medical Devices Not on filedocumented as of this encounter Visit Diagnoses Diagnosis HTN, goal below 140/90 Unspecified essential hypertension documented in this encounter Care Teams Bed Laster Relationship Specialty Start Date End Date Jackie Schaeffer MD [address] [place] [address] PCP - General Family Medicine 04/26/23 documented as of this encounter
[2024-06-02] MEDS: ASPIRIN CHEW 324 MG PO STA (11:47)
--- NOTE | 2024-06-02 11:47 | Emergency Department Note ---
Impression & Plan Chest pain, Wide-complex tachycardia ED Provider Note NAME: NATALIA MCKENZIE AGE: 43 SEX: M : 1980 ARRIVES VIA: Walk-In INFORMANT: Patient, ED PROVIDER(S): Prabhu Marion DO CHIEF COMPLAINT: Chest pain HPI: The patient is a 43-year-old male who presented to the emergency department because an acute onset of left-sided chest pain. He notices radiation to his left arm. The patient denies having any fever. He does complain of a slight cough. He complains of some shortness of breath. He denies having any leg swelling or leg pain. The pain does not go to his back. The patient states he had a history of stress test in the past that reportedly was negative. The patient does have a history of tobacco use as well as coronary artery disease in his family. ROS: See above HPI for pertinent positives & negatives. A total of 10 systems reviewed and were otherwise negative. PAST MEDICAL HISTORY: See Below PAST SURGICAL HISTORY: See Below FAMILY HISTORY: See Below SOCIAL HISTORY: See Below HOME MEDICATIONS: See Below ALLERGIES: See Below VITALS: See Below PHYSICAL EXAMINATION: GENERAL: The patient is awake and alert. The patient appears to be uncomfortable. EYES: The conjunctivae are clear. The pupils are round and reactive. EARS, NOSE, MOUTH AND THROAT: The nose is without any evidence of any deformity. NECK: The neck is nontender and supple. RESPIRATORY: Normal respiratory effort is noted there is no evidence of wheezing rhonchi or rales CARDIOVASCULAR: Regular rate and rhythm noted there no murmurs rubs or gallops normal S1 normal S2. GASTROINTESTINAL: The abdomen is soft. Abdomen is nontender. MUSCULOSKELETAL/EXTREMITIES: There is no evidence of gross deformity full range of motion is noted in the hips and shoulders. SKIN: There is no pedal edema noted. Pulses are symmetric in both wrist. NEUROLOGIC: Patient is awake alert and oriented x3 MEDICAL DECISION MAKING: The patient is a 43-year-old male who presented to the emergency department for an evaluation of chest pain. The patient describes left-sided chest pain that went to the arm. The patient was treated with medication for pain as well as aspirin in the emergency department. While in the emergency department awaiting his workup he did have an episode of increased pain and during which he had an episode of nonsustained wide-complex tachycardia. I discussed the patient's laboratory and radiographic studies with him. I discussed the limitations of the emergency department workup for chest pain with him but ultimately given the episode of wide-complex tachycardia I do not feel the patient would be a good candidate for outpatient workup. I discussed his condition with the on-call [facility] cardiology group as well as the on-call [facility] hospitalist group. They have agreed to evaluate the patient in the emergency department. Triage Nursing notes reviewed. Prior medical records reviewed Vital Signs: reviewed and remarkable for initial hypertension. Differential diagnosis: Cardiac ischemia, aortic dissection, pulmonary embolism, pneumothorax, pneumonia, pericarditis, myocarditis, esophageal rupture, GERD, cholecystitis, pancreatitis, musculoskeletal, as well as other pathologies. ER treatment provided: See below Diagnostics interpreted by me: ECG: EKG was obtained in the emergency department. My interpretation is normal sinus rhythm at 89 bpm. There was no ectopy. There was no acute ST segment abnormalities noted. Previous tracing from April 30, 2023 shows no significant changes. A second EKG was obtained in the emergency department. My interpretation is normal sinus rhythm at 75 bpm. There is no ectopy. There is no acute ST segment abnormalities noted. Cardiac Monitoring: An order was placed for continuous cardiac monitoring. The monitor shows a rate of 75 bpm with sinus rhythm. Laboratory studies: As stated above and show below. Imaging studies: See below. Radiographic imaging was reviewed by myself Consultation(s): I discussed this case with Dr. Cisneros who is on-call for [facility] cardiology. I discussed this case with Gisella who was on-call [facility] ED COURSE: Procedures: none Critical Care: I have personally spent greater than 35 minutes of critical care time in the direct management of this patient. This includes bedside care, interpretation of diagnostic studies, and testing, discussion with consultants, patient, and family members, and other required patient management activities. This 35 minutes is in excess of all separately billable procedures. Past Med/Surg History Problem List (Updated 06/02/24 @ 13:34 by Prabhu Marion DO) Wide-complex tachycardia (Acute) Chest pain (Acute) Encounter for pre-operative examination Appendicitis Alcohol use Tobacco use Depression Hypertension Acute appendicitis (Acute) Colitis (Acute) GERD (gastroesophageal reflux disease) No significant past surgical history Pancolitis Headache (Acute) Insect bite (Acute) Minor head injury without loss of consciousness (Acute) Surgical History S/P laparoscopic appendectomy (11/07/21) Laparoscopic Appendectomy - Gonzalo Amador MD, FACS History of esophagogastroduodenoscopy (EGD) Family History Other Myocardial infarction Social History Smoking Status: Current every day smoker Tobacco Type: Cigarettes Cigarettes Per Day: 1.5 ppd; Second Hand Exposure: Yes; Do You Dip or Chew Tobacco: No; Hx Alcohol Use: Yes (5-10 beers daily) Alcohol type: beer Hx Substance Use: No Preferred Language: Luxembourgish Communication Ability: Effective 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 Required: No Beliefs That Will Affect Care: None marital status: Single Current Living Situation: Parent current occupational status: employed Feels Safe at Home: Yes Assistive Devices: None Allergies Allergies Allergy/AdvReac Type Severity Reaction Status Date / Time shellfish derived Allergy Severe Swelling Verified 04/30/23 15:54 of Lip/Tongue/Throat bupropion Allergy Intermediate hives Verified 04/30/23 15:54 Home Meds Home Medications Medication Instructions Recorded Confirmed amitriptyline 10 mg tablet 10 mg PO QAM 11/06/21 04/30/23 omeprazole 20 mg tablet,delayed 20 mg PO BID 11/06/21 04/30/23 release sertraline 50 mg tablet (Zoloft) 50 mg PO QAM 11/06/21 04/30/23 lisinopril 10 mg tablet 10 mg PO QAM 04/30/23 04/30/23 varenicline tartrate 1 mg tablet 1 mg PO BID 04/30/23 04/30/23 (Chantix) Results & Data (ED) Vital Signs Vital Signs - 24 hr 06/02/24 11:16 06/02/24 11:52 06/02/24 12:03 Temperature 36.7 C Temperature Source Temporal Artery Scan Pulse Rate 96 H 96 H Pulse Rate [Apical] Respiratory Rate 18 Respiratory Effort / Characteristics Non-Labored Spontaneous Respiratory Depth Normal Respiratory Pattern Regular Blood Pressure 218/124 H 189/130 H Blood Pressure [Left Arm] Blood Pressure Mean 155 Blood Pressure Mean [Left Arm] Blood Pressure Position Sitting Blood Pressure Position [Left Arm] Pulse Oximetry 97 93 Oxygen Delivery Method Room Air Room Air Sepsis Recent Fever Within 48 Hours No Sepsis New/Unexplained Change in Mental Status N/A Sepsis Action Taken by Nursing No Action Required 06/02/24 12:03 06/02/24 12:11 06/02/24 12:45 Temperature Temperature Source Pulse Rate 75 77 Pulse Rate [Apical] 75 Respiratory Rate 19 18 Respiratory Effort / Characteristics Non-Labored Spontaneous Respiratory Depth Normal Respiratory Pattern Blood Pressure Blood Pressure [Left Arm] 118/80 Blood Pressure Mean Blood Pressure Mean [Left Arm] 92 Blood Pressure Position Blood Pressure Position [Left Arm] Semi-fowlers Pulse Oximetry 93 94 Oxygen Delivery Method Room Air Room Air Sepsis Recent Fever Within 48 Hours Sepsis New/Unexplained Change in Mental Status Sepsis Action Taken by [facility]dc Medications Current Medication List: was personally reviewed by me Laboratory Data Attestation: I reviewed the patient's lab results. 06/02/24 11:34 06/02/24 11:34 Lab Results 06/02/24 06/02/24 Range/Units 11:34 11:57 WBC 9.72 (4.8-10.8) K/ul RBC 5.92 (4.70-6.10) M/uL Hgb 18.4 H (14.0-18.0) g/dl Hct 52.5 H (42.0-52.0) % MCV 88.7 (80.0-100.0) fL MCH 31.1 (25.0-34.0) pg MCHC 35.0 (32.0-36.0) g/dL RDW Std Deviation 43.6 (36.4-46.3) fL RDW Coeff of Perri 13.3 (11.5-14.5) % Plt Count 189 (130-400) K/uL MPV 9.8 (9.4-12.4) fL Immature Gran % (Auto) 0.5 % Neut % (Auto) 69.7 % Lymph % (Auto) 20.8 % Mccracken % (Auto) 6.6 % Eos % (Auto) 2.1 % Baso % (Auto) 0.3 % Neut # (Auto) 6.78 H (1.40-6.50) K/uL Lymph # (Auto) 2.02 (1.20-3.40) K/uL Mccracken # (Auto) 0.64 H (0.11-0.59) K/uL Eos # (Auto) 0.20 (0.00-0.50) K/uL Baso # (Auto) 0.03 (0.00-0.20) K/uL Immature Gran # (Auto) 0.05 (0.01-0.20) K/uL Sodium 135 L (136-145) mmol/L Potassium 4.1 (3.5-5.1) mmol/L Chloride 100 (98-107) mmol/L Carbon Dioxide 29 (21-32) mmol/L Anion Gap 6 (3-11) BUN 5 L (6-23) mg/dl Creatinine 0.79 (0.6-1.4) mg/dl Est Cr Clr Drug Dosing 139.3 ml/min eGFR 111.64 BUN/Creatinine Ratio 6.3 L (10-20) Glucose 125 H (70-99(Fasting)) mg/dl Calcium 8.7 (8.6-10.3) mg/dl Total Bilirubin 0.8 (0.2-1.0) mg/dl AST 24 (13-39) U/L ALT 25 (7-52) U/L Alkaline Phosphatase 110 H (34-104) U/L Troponin I High Sens 13.7 (0-20) pg/ml Total Protein 6.8 (6.0-8.3) gm/dl Albumin 4.0 (3.4-5.0) gm/dl Globulin 2.8 (2.5-4.0) gm/dl Albumin/Globulin Ratio 1.4 (0.9-2) Lipase 7 L (11-82) U/L SARS-CoV-2 (PCR) NEGATIVE (Negative) Influenza Type A (PCR) Negative (Neg) Influenza Type B (PCR) Negative (Neg) RSV (RT-PCR) Negative (Neg) Administered Medications Heparin Sodium/Dextrose (Heparin 21933 Unit/500 Ml D5w) 25,000 units in 500 mls @ 0.02 mls/hr IV .Q24H [facility]; Protocol Stop: 07/02/24 13:14 Last Admin: 06/02/24 13:18 Dose: 1,000 units/hr, 20 mls/hr Documented By: JAY Co-signed By: NA Discontinued Medications Aspirin (Aspirin Chew 324 Mg) 324 mg PO NOW STA Stop: 06/02/24 11:38 Last Admin: 06/02/24 11:47 Dose: 324 mg Documented By: ELIESER Labetalol HCl (Labetalol Hcl Iv 5 Mg/Ml 20ml) 10 mg IV NOW STA Stop: 06/02/24 11:38 Last Admin: 06/02/24 11:52 Dose: 10 mg Documented By: AMS Morphine Sulfate (Morphine Sulfate 4 Mg/Ml 1 Ml Carp\Vial) 4 mg IV NOW STA Stop: 06/02/24 11:38 Last Admin: 06/02/24 11:51 Dose: 4 mg Documented By: AMS Ondansetron HCl (Ondansetron Inj 2 Mg/Ml 2 Ml Vial) 4 mg IV NOW STA Stop: 06/02/24 11:38 Last Admin: 06/02/24 11:49 Dose: 4 mg Documented By: ELIESER Imaging Data Attestation: I personally reviewed and interpreted this imaging study as follows: My Impression: 1 view chest x-ray was obtained in the emergency department. My interpretation is no free air or definite infiltrate, final report below. Radiologist's Impression: Chest X-Ray 06/02/24 11:19 XR chest 1V portable CLINICAL HISTORY: Chest pain, nonspecific COMPARISON STUDY: Chest radiograph April 30, 2023. FINDINGS: Lung volumes are normal. Lungs are clear. There is no pneumothorax or pleural effusion. Cardiac size is normal. Mediastinal contours are normal. There is no evidence for pulmonary edema. IMPRESSION: No acute cardiopulmonary findings. ACT 112: Negative or not required by law. Electronically signed by: Rene Harrison M.D. 06/02/2024 12:27 PM Discharge Plan Visit Data Chief Complaint: Chest Pain Stated Complaint: CHEST PAIN ED Provider: Prabhu Marion Discharge Problem: Chest pain, Wide-complex tachycardia Patient Disposition: Being Evaluated by Hospitalist Forms Stand Alone Forms: My [facility] Prescriptions Prescriptions: No Action amitriptyline 10 mg Tablet 10 mg PO QAM sertraline [Zoloft] 50 mg Tablet 50 mg PO QAM omeprazole 20 mg Tablet,Delayed Release (Dr/Ec) 20 mg PO BID lisinopril 10 mg Tablet 10 mg PO QAM varenicline tartrate [Chantix] 1 mg Tablet 1 mg PO BID Referrals Referrals: John Woodard MD [Primary Care Provider] - Discharge Problem: Chest pain Qualifiers: Chest pain type: unspecified Qualified Code(s): R07.9 - Chest pain, unspecified
[2024-06-02] MEDS: ONDANSETRON INJ 2 MG/ML 2 ML VIAL IV STA (11:49)
[2024-06-02] MEDS: MoRPHine SULFATE 4 MG/ML 1 ML CARP\\VIAL IV STA (11:51)
[2024-06-02] MEDS: LABETALOL HCL IV 5 MG/ML 20ML IV STA (11:52)
[2024-06-02 11:59] LABS: Basophils # (auto) 0.03 K/uL (0.00-0.20); Basophils % (auto) 0.3 %; Eosinophils % (auto) 2.1 %; Hematocrit (blood only) 52.5 % (42.0-52.0); Hemoglobin 18.4 g/dl (14.0-18.0); Immature Granulocytes # (auto) 0.05 K/uL (0.01-0.20); Immature Granulocytes % (auto) 0.5 %; Lymphocytes # (auto) 2.02 K/uL (1.20-3.40); Lymphocytes % (auto) 20.8 %; Mean Corpuscular Hemoglobin 31.1 pg (25.0-34.0); Mean Corpuscular Volume 88.7 fL (80.0-100.0); Mean Platelet Volume 9.8 fL (9.4-12.4); Monocytes # (auto) 0.64 K/uL (0.11-0.59); Monocytes % (auto) 6.6 %; Neutrophils # (auto) 6.78 K/uL (1.40-6.50); Neutrophils % (auto) 69.7 %; Platelet Count 189 K/uL (130-400); RDW Coefficient of Variation 13.3 % (11.5-14.5); RDW Standard Deviation 43.6 fL (36.4-46.3); Red Blood Count 5.92 M/uL (4.70-6.10); White Blood Count 9.72 K/ul (4.8-10.8)
[2024-06-02 12:12] LABS: Albumin Globulin Ratio 1.4 (0.9-2); BUN Creatinine Ratio 6.3 (10-20); Bilirubin,Total 0.8 mg/dl (0.2-1.0); Calcium 8.7 mg/dl (8.6-10.3); Creatinine Clr Calc Pharmacy 139.3 ml/min; Globulin 2.8 gm/dl (2.5-4.0); Potassium 4.1 mmol/L (3.5-5.1); Total Protein 6.8 gm/dl (6.0-8.3)
[2024-06-02 12:20] LABS: Troponin I High Sensitivity 13.7 pg/ml (0-20)
--- NOTE | 2024-06-02 12:28 | XRay Report ---
XR chest 1V portable CLINICAL HISTORY: Chest pain, nonspecific COMPARISON STUDY: Chest radiograph April 30, 2023. FINDINGS: Lung volumes are normal. Lungs are clear. There is no pneumothorax or pleural effusion. Car diac size is normal. Mediastinal contours are normal. There is no evidence for pulmonary edema. IMPRESSION: No acute cardiopulmonary findings. ACT 112: Negative or not required by law. Electronically signed by: Rene Harrison M.D. 06/02/2024 12:27 PM
[2024-06-02 12:46] LABS: Influenza A virus by PCR Negative (Neg); Influenza B virus by PCR Negative (Neg); RSV by PCR Negative (Neg); SARS CoV2 RNA(COVID-19) Ceph NEGATIVE (Negative)
[2024-06-02] MEDS: HEPARIN 25000 UNIT/500 ML D5W 25,000 UNITS/500 ML BAG IV SCH (13:18)
--- NOTE | 2024-06-02 13:22 | History & Physical Report ---
Date of Service June 02, 2024 Assessment & Plan (1) Chest pressure: (2) Chest tightness: (3) Elevated troponin: (4) Wide-complex tachycardia: Plan: Jairo Escalante is a 43y/o M with PMHx significant for HTN, gout, GERD without esophagitis, depression and tobacco use disorder who presented to the ED for evaluation of chest pressure and tightness. Patient reports acute onset of midsternal chest tightness and pressure around 9AM this morning while at rest w hich radiated down into his left arm. Had some mild SOB with this as well but no diaphoresis. This episode lasted a few minutes and then resolved spontaneously, however it prompted him to present to the ED because he had never experienced chest discomfort of that intensity before. Patient then developed a sudden onset of severe chest tightness, somewhat similar to before, but this time nonradiating whilst resting in his ED bed around 11:42 this morning. He became very dizzy with this. Monitor strip at that time revealed a nonsustained episode of wide-complex tachycardia which resolved spontaneously and his symptoms completely resolved s/p 324mg aspirin and 4mg IV morphine. ED provider, Dr. Marion, discussed his case with Dr. Cisneros over the phone. Dr. Cisneros's recommendation was to initiate IV heparin and obtain resting echocardiogram. CXR negative. EKG x 2 were grossly unremarkable with no evidence of ST changes. Initial troponin negative. Repeat troponin 1775 around 14:54. Repeat EKG following bump in troponin was again unremarkable. Patient remains free of chest pain since receiving ASA and morphine as per above. Continue to trend troponin Q4H. Resting echocardiogram reviewed --> LVEF=60-65%, grade I DD. No significant valvular disease. Continue IV heparin as directed by cardiology. Check AM fasting lipid panel. Appreciate further recommendations as directed by cardiology. (5) Elevated d-dimer: Plan: D-dimer elevated at 990. Chest CTA negative for PE. (6) Hypertensive urgency: Plan: BP 218/124 on presentation. Now normotensive s/p 10mg IV labetalol in ED. Continue close BP monitoring. PRN IV labetalol 5mg Q4H for SBP>180. Appreciate cardiology's input. (7) Tobacco use disorder: Plan: Smokes about 1 and 1/2 to 2 PPD. Nicotine patch ordered per patient's request. Encourage smoking cessation. (8) Alcohol use disorder: Plan: Usually drinks about 10 beers/day however he has not done so since this past . Denies any history of alcohol withdrawal. Start folate and thiamine supplementation. At-risk PRN Ativan AWSS protocol. DVT Prophylaxis: IV heparin as per above. Code Status: FULL CODE PCP: John Woodard MD Disposition: Admit to PCU/Telemetry for further inpatient evaluation and management. Patient seen in collaboration with Dr. Kirkpatrick. Please see addendum. I spent a total of 60 minutes coordinating, documenting, and providing care for this patient excluding time spent in the performance of separately billed services or time spent by another provider/QHP. This included personally reviewing all current laboratories and imaging studies, medical reconciliation, outpatient chart review and discussion with specialists. This chart was completed in part utilizing Speech Voice Recognition Software. Grammatical errors, random word insertions, pronoun errors, and incomplete sentences are an occasional consequence of this system due to software limitations, ambient noise, and hardware issues. Any formal questions or concerns about the content, text, or information contained within the body of this dictation should be directly addressed to the provider for clarification. History of Present Illness Chief Complaint: Chest Pain Primary Care Provider: John Woodard MD Jairo Escalante is a 43y/o M with PMHx significant for HTN, gout, GERD without esophagitis, depression and tobacco use disorder who presented to the ED for evaluation of chest pain. History obtained from the patient and associated chart review. Patient seen at bedside with Dr. Kirkpatrick. Patient reports acute onset of midsternal chest tightness and pressure around 9AM this morning while at rest which radiated down into his left arm. Had some mild SOB with this as well but no diaphoresis. This episode lasted a few minutes and then resolved spontaneously, however it prompted him to present to the ED because he had never experienced chest discomfort/pain of that intensity before. Patient then developed a sudden onset of severe chest tightness, somewhat similar to before, but this time nonradiating whilst resting in his ED bed around 11:42 this morning. He became very dizzy with this. Monitor strip at that time revealed a nonsustained episode of wide-complex tachycardia which resolved spontaneously and his symptoms completely resolved s/p 324mg aspirin and 4mg IV morphine. ED provider, Dr. Marion, discussed his case with Dr. Cisneros over the phone. Dr. Cisneros's recommendation was to initiate IV heparin and obtain resting echocardiogram. No further episodes of chest discomfort/pain reported since then. No personal prior cardiac history. Had an exercise stress echocardiography done in September 2010 which was unremarkable. Does mention his dad had a "cardiac arrest event" in his 50s. Also has an aunt with history of [place]. Patient had been sick about 2 days ago with nausea and vomiting however he states this has since resolved. Attributes this to possible food poisoning vs norovirus. Appetite now good. No recent fevers, chills or body aches. Denies any recent diarrhea. Smokes about 1 and 1/2 to 2 PPD. Usually drinks about 10 beers/ day however he has not done so since this past . Denies any history of alcohol withdrawal. EKG x 2 in ED were unremarkable with no evidence of ST changes. CXR negative. BP initially 218/124 on presentation. BP improved to 118/80 s/p 10mg IV labetalol. Initial troponin negative. Repeat troponin 1775. Repeat EKG following bump in troponin was again unremarkable - noted NSR with no acute ST changes. Patient remains free of chest pain/discomfort since episode of wide-complex tachycardia as per above. Allergies Allergy/AdvReac Type Severity Reaction Status Date / Time shellfish derived Allergy Severe Swelling Verified 04/30/23 15:54 of Lip/Tongue/Throat bupropion Allergy Intermediate hives Verified 04/30/23 15:54 Home Medications Medication Instructions Recorded Confirmed Type amitriptyline 10 mg tablet 10 mg PO QAM 11/06/21 06/02/24 History omeprazole 20 mg tablet,delayed 20 mg PO BID 11/06/21 06/02/24 History release sertraline 50 mg tablet (Zoloft) 50 mg PO QAM 11/06/21 06/02/24 History lisinopril 10 mg tablet 10 mg PO QAM 04/30/23 06/02/24 History Past Med/Surg History Problem List Elevated d-dimer Alcohol use disorder Elevated troponin Chest tightness Chest pressure Chest discomfort Tobacco use disorder Hypertensive urgency Wide-complex tachycardia (Acute) Chest pain (Acute) Encounter for pre-operative examination Appendicitis Alcohol use Tobacco use Depression Hypertension Acute appendicitis (Acute) Colitis (Acute) GERD (gastroesophageal reflux disease) No significant past surgical history Pancolitis Headache (Acute) Insect bite (Acute) Minor head injury without loss of consciousness (Acute) Surgical History S/P laparoscopic appendectomy (11/07/21) Laparoscopic Appendectomy - Gonzalo Amador MD, [facility] History of esophagogastroduodenoscopy (EGD) Family History Other Myocardial infarction Social History Smoking Status: Current every day smoker Tobacco Type: Cigarettes Cigarettes Per Day: 1.5 ppd; Second Hand Exposure: No; Do You Dip or Chew Tobacco: No; Hx Alcohol Use: Yes Alcohol type: beer Hx Substance Use: No Preferred Language: Hebrew Communication Ability: Effective Test Skein Winder Required: No Beliefs That Will Affect Care: None marital status: Single Current Living Situation: Family current occupational status: employed Feels Safe at Home: Yes Assistive Devices: None Review of Systems Review of Systems: At least ten systems reviewed and negative, except as noted in the HPI. Physical Exam Physical Exam: Please refer to Dr. Kirkpatrick's addendum for physical examination findings. Results & Data Results & Data Vital Signs (Past 12 Hours) Vital Signs Temp Pulse Pulse Resp BP BP Pulse Ox 06/02/24 12:45 75 18 118/80 94 06/02/24 12:11 77 06/02/24 12:03 75 19 93 06/02/24 12:03 93 06/02/24 11:52 96 H 189/130 H 06/02/24 11:16 36.7 C 96 H 18 218/124 H 97 O2 Del Method 06/02/24 12:45 Room Air 06/02/24 12:11 06/02/24 12:03 Room Air 06/02/24 12:03 Room Air 06/02/24 11:52 06/02/24 11:16 Room Air Laboratory Results Short CBC 06/02/24 Range/Units 11:34 WBC 9.72 (4.8-10.8) K/ul Hgb 18.4 H (14.0-18.0) g/dl Hct 52.5 H (42.0-52.0) % Plt Count 189 (130-400) K/uL BMP 06/02/24 11:34 Sodium 135 L Potassium 4.1 Chloride 100 Carbon Dioxide 29 BUN 5 L Creatinine 0.79 Glucose 125 H Calcium 8.7 Liver Function 06/02/24 Range/Units 11:34 Total Bilirubin 0.8 (0.2-1.0) mg/dl AST 24 (13-39) U/L ALT 25 (7-52) U/L Alkaline Phosphatase 110 H (34-104) U/L Albumin 4.0 (3.4-5.0) gm/dl Diagnostic Findings Chest X-Ray 06/02/24 11:19 XR chest 1V portable CLINICAL HISTORY: Chest pain, nonspecific COMPARISON STUDY: Chest radiograph April 30, 2023. FINDINGS: Lung volumes are normal. Lungs are clear. There is no pneumothorax or pleural effusion. Cardiac size is normal. Mediastinal contours are normal. There is no evidence for pulmonary edema. IMPRESSION: No acute cardiopulmonary findings. ACT 112: Negative or not required by law. Electronically signed by: Rene Harrison M.D. 06/02/2024 12:27 PM Medications Administered Heparin Sodium/Dextrose (Heparin 47895 Unit/500 Ml D5w) 25,000 units in 500 mls @ 0.02 mls/hr IV .Q24H HUMAIRA; Protocol Stop: 07/02/24 13:14 Last Admin: 06/02/24 13:18 Dose: 1,000 units/hr, 20 mls/hr Documented By: JAY Co-signed By: NA Discontinued Medications Aspirin (Aspirin Chew 324 Mg) 324 mg PO NOW STA Stop: 06/02/24 11:38 Last Admin: 06/02/24 11:47 Dose: 324 mg Documented By: ELIESER Labetalol HCl (Labetalol Hcl Iv 5 Mg/Ml 20ml) 10 mg IV NOW STA Stop: 06/02/24 11:38 Last Admin: 06/02/24 11:52 Dose: 10 mg Documented By: ELIESER Morphine Sulfate (Morphine Sulfate 4 Mg/Ml 1 Ml Carp\\Vial) 4 mg IV NOW STA Stop: 06/02/24 11:38 Last Admin: 06/02/24 11:51 Dose: 4 mg Documented By: ELIESER Ondansetron HCl (Ondansetron Inj 2 Mg/Ml 2 Ml Vial) 4 mg IV NOW STA Stop: 06/02/24 11:38 Last Admin: 06/02/24 11:49 Dose: 4 mg Documented By: ELIESER Code Status & VTE Plan Code Status FULL CODe Supervising Physician Co-Signing Physician Notes Attending Addendum: Case reviewed with the advanced practitioner. I have personally performed a history and physical examination on the patient. I have reviewed the advanced practitioner's documentation on the date of service referenced in note, and I agree with, and take responsibility for the plan of care. please refer to her notes for full details patient seen and examined, records reviewed by myself as well on exam, patient seen resting in bed comfortable, Not in distress Chest pain-free no other symptoms VS noted and reviewed oriented x3, not in distress, speaks in sentences with no effort nor accessory muscle use normal rate, regular rhythm, no murmurs clear breath sounds bilaterally non distended, soft, nontender no bipedal edema, erythema, warmth no neuro deficits all labs, imaging noted and reviewed ASSESSMENT AND PLAN Chest pain, rule out acute coronary syndrome Episode of wide-complex tachycardia Initial troponin negative, second set 1999' No chest pain EKG no signs of acute ischemia Cardiology service consulted Currently on heparin drip Also started on aspirin, metoprolol XL, atorvastatin CT chest: Negative for PE Hypertensive urgency Admitted with systolic BP of 200s Metoprolol XL started Continue usual lisinopril other diagnoses and plan of care as per advanced practitioner's notes I spent a total of 35 minutes coordinating, documenting, and providing care for this patient, excluding time spent in the performance of separately billed services or time spent by another provider/QHP. Cristino Kirkpatrick MD
--- NOTE | 2024-06-02 13:30 | Cardiology Consultation ---
Date of Consultation June 02, 2024 Assessment & Plan (1) Chest pain: (2) Wide-complex tachycardia: (3) Hypertension: Plan Assessment: 43 year old male presents with new onset brief episode of severe chest discomfort while at rest. Experienced an additional epidose of chest pain, somewhat different upon arrival consistent with a fast wide complex tachycardia. Cardiology has been requested to further assess and provide recommendations. Plan: 1. chest pain: 2. Wide complex tachycardia -2 separate episodes, slightly different, one with arrhythmia noted on telemetry; however he was near syncopal with this episode and was not with the episode at home. Etiology unclear -EKG's unremarkable. -Prior history of HTN for which he takes Lisinopril at home. -Initial troponin negative. Will continue to trend, pending now. -Electrolytes WNL -Check TSH -DDS elevated at 990. Will need CTA to rule out PE. -For echocardiogram today -Pending CTA, echocardiogram and labs, will provide further recommendations as appropriate. 3. HTN -Currently well controlled. -Continue Lisinopril. Case has been discussed with Dr. Cisneros. Further recommendations regarding plan of care as per his assessment. I spent a total of 40 minutes on the date of service in preparation, delivery, documentation of the care provided to the patient excluding any time spent in the performance of separately billed services. EMERITA Alford [facility] Cardiology [facility] Supervising Physician Co-Signing Physician Notes Attending attestation: Case reviewed with the advanced practitioner. I have personally performed a history and physical examination on the patient. I have reviewed the advanced practitioner's documentation on the date of service referenced in note, and I agree with, and take responsibility for the plan of care. Subjective: Patient feeling well during my assessment. Notes that yesterday he went home from work early feeling like he had "flu bug ". No subjective fevers at present. 1 episode of abrupt onset chest tightness at home, 11:42 AM on 06/02/2024 patient was noted to have an episode of wide-complex tachycardia captured on telemetry with reproduction of his symptoms. Exam: Cardiovascular regular rhythm, no murmurs, no edema Data: Telemetry is noted. EKG x 2 revealing sinus rhythm without repolarization abnormalities. Elevated D-dimer, but follow-up CT scan was negative for pulmonary embolism. Echocardiogram performed today revealed normal biventricular chamber size and systolic function, no regional wall motion abnormalities. High sensitive troponin negative x 2 thus far at 6.1 and 13.7 PG per mL. Impression/ Plan: Chest tightness Wide-complex tachycardia Cigarette smoker -Admit to telemetry -Proceed with aspirin, metoprolol, unfractioned heparin, statin therapy. -Trend troponin level. -Further recommendations will be forthcoming. I spent a total of 20 minutes coordinating, documenting, and providing care for this patient excluding time spent in the performance of separately billed services or time spent by another provider. Bret Cisneros DO History of Present Illness Reason for Consultation: chest pain Requesting Physician: Zo mike History of Present Illness HPI: Patient is a 43 year old with HTN, GERD, Gout, depression and tobacco use that presented to the ER for acute complaints of chest pain. Patient states that he was feeling his usual state of health this morning and was sitting in a chair when he developed sudden onset chest tightness and squeezing with radiation down his left arm. Episode lasted a few minutes and prompted him to present because he had never experienced anything this intense before. patient was resting in the ER bed today and at 1142 developed sudden severe chest tightness, somewhat similar to before, but this time non-radiating. He became very dizzy. A monitor strip at that time revealed a very rapid wide complex tachycardia. Episode spontaneously resolved and symptoms went away almost immediately. Patient denies any prior cardiac history, although had a cardiac work up > 10 years ago including a stress test which was negative. Denies any recall of having an echocardiogram in his past. He had been sick 2 days prior to admission with N/V/D; however, states that he has been able to eat and drink last evening and this morning. Electrolytes are stable. EKG on admission NSR rate 75bpm. Repeat EKG after narrow complex tachycardia again shows NSR with no acute ST-T wave changes. Initial troponin negative Chest xray negative for acute process Heparin gtt was started and additional repeat troponin ordered. 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 Family history of positive for CVAs, and most notably, his father had a "cardiac arrest event" at age 52. He also carries a history of severe MR s/p replacement and history of A-fib. patient's mother is at bedside and questioned if there is any evidence of Afib. Explained that currently no, but that we need to continue to monitor his arrhythmia event Allergies Allergy/AdvReac Type Severity Reaction Status Date / Time shellfish derived Allergy Severe Swelling Verified 04/30/23 15:54 of Lip/Tongue/Throat bupropion Allergy Intermediate hives Verified 04/30/23 15:54 Home Medications Medication Instructions Recorded Confirmed Type amitriptyline 10 mg tablet 10 mg PO QAM 11/06/21 06/02/24 History omeprazole 20 mg tablet,delayed 20 mg PO BID 11/06/21 06/02/24 History release sertraline 50 mg tablet (Zoloft) 50 mg PO QAM 11/06/21 06/02/24 History lisinopril 10 mg tablet 10 mg PO QAM 04/30/23 06/02/24 History Patient History Surgical History S/P laparoscopic appendectomy (11/07/21) Laparoscopic Appendectomy - Gonzalo Amador MD, FACS History of esophagogastroduodenoscopy (EGD) Family History Other Myocardial infarction Social History Smoking Status: Current every day smoker Tobacco Type: Cigarettes Cigarettes Per Day: 1.5 ppd; Second Hand Exposure: Yes; Do You Dip or Chew Tobacco: No; Hx Alcohol Use: Yes (5-10 beers daily) Alcohol type: beer Hx Substance Use: No Preferred Language: Maltese Communication Ability: Effective Milieu Manager Required: No Beliefs That Will Affect Care: None marital status: Single Current Living Situation: Parent current occupational status: employed Feels Safe at Home: Yes Assistive Devices: None Review of Systems Review of Systems: All systems reviewed & are unremarkable except as noted in HPI & below Physical Exam Constitutional: well developed, well nourished and average body habitus; no acute distress and not ill appearing Neck: normal visual inspection and trachea midline Respiratory: normal respiratory effort, lungs clear to auscultation Cardiovascular: Rate/Rhythm: regular rate and regular rhythm Heart Sounds: normal S1 and normal S2; no murmur Vessels: dorsalis pedis pulses present; no JVD Extremities: no edema Skin: no rashes, warm and dry Psychiatric: A+Ox3, euthymic affect Results & Data Vital Signs (Past 12 Hours) Vital Signs Temp Pulse Pulse Resp BP BP Pulse Ox 06/02/24 12:45 75 18 118/80 94 06/02/24 12:11 77 06/02/24 12:03 75 19 93 06/02/24 12:03 93 06/02/24 11:52 96 H 189/130 H 06/02/24 11:16 36.7 C 96 H 18 218/124 H 97 O2 Del Method 06/02/24 12:45 Room Air 06/02/24 12:11 06/02/24 12:03 Room Air 06/02/24 12:03 Room Air 06/02/24 11:52 06/02/24 11:16 Room Air Laboratory Results Cardiac Enzymes 06/02/24 Range/Units 11:34 AST 24 (13-39) U/L Troponin I High Sens 13.7 (0-20) pg/ml CBC 06/02/24 Range/Units 11:34 WBC 9.72 (4.8-10.8) K/ul RBC 5.92 (4.70-6.10) M/uL Hgb 18.4 H (14.0-18.0) g/dl Hct 52.5 H (42.0-52.0) % Plt Count 189 (130-400) K/uL Neut # (Auto) 6.78 H (1.40-6.50) K/uL Lymph # (Auto) 2.02 (1.20-3.40) K/uL Cook # (Auto) 0.64 H (0.11-0.59) K/uL Eos # (Auto) 0.20 (0.00-0.50) K/uL Baso # (Auto) 0.03 (0.00-0.20) K/uL Comprehensive Metabolic Panel 06/02/24 Range/Units 11:34 Sodium 135 L (136-145) mmol/L Potassium 4.1 (3.5-5.1) mmol/L Chloride 100 (98-107) mmol/L Carbon Dioxide 29 (21-32) mmol/L BUN 5 L (6-23) mg/dl Creatinine 0.79 (0.6-1.4) mg/dl Glucose 125 H (70-99(Fasting)) mg/dl Calcium 8.7 (8.6-10.3) mg/dl AST 24 (13-39) U/L ALT 25 (7-52) U/L Alkaline Phosphatase 110 H (34-104) U/L Total Protein 6.8 (6.0-8.3) gm/dl Albumin 4.0 (3.4-5.0) gm/dl Intake and Output 06/01/24 06/02/24 06/02/24 22:59 06:59 14:59 Other: Weight 95.5 kg Weight Measurement Method Chair Scale Patient Weight 06/03/24 06:59 Weight 95.5 kg (1) Chest pain Chest pain type: unspecified Qualified Code(s): R07.9 - Chest pain, u nspecified
[2024-06-02 14:06] LABS: D Dimer 990 ug/L FEU (0-500)
[2024-06-02] MEDS: Heparin IV Adult Wt-Based Low-Dose *NO* INITIAL Bolus Protocol IV STA (15:02)
[2024-06-02] MEDS: OPTIRAY 320 125ml IV ONE (15:03)
--- NOTE | 2024-06-02 15:11 | CT Scan Report ---
CT pulmonary angiogram with IV contrast History: Chest pain COMPARISON: None TECHNIQUE: CT angiography of the chest was performed without IV contrast followed by IV contrast, including 3D post processing CTA image reconstruction. Dose reduction techniques were achieved by using automatic exposure control and/or adjustment of mA and/or kV according to patient size and/or use of iterative reconstruction technique. FINDINGS: Diagnostic quality: Adequate There is no evidence for pulmonary embolism. The heart is not enlarged. There is no pericardial effusion. There are no abnormally enlarged hilar or mediastinal lymph nodes. The central tracheobronchial tree is clear. The lungs are clear. There is no pleural effusion. Limited visualized upper abdomen. No destructive osseous changes are seen. IMPRESSION: No evidence for pulmonary embolism. There is moderate centrilobular and paraseptal emphysema. Electronically signed by Teodoro Lundberg 06-02-2024 3:11 PM
--- NOTE | 2024-06-02 15:55 | Electrocardiogram Report ---
Test Reason : Blood Pressure : */* mmHG Vent. Rate : 75 BPM Atrial Rate : 75 BPM P-R Int : 148 ms QRS Dur : 90 ms QT Int : 382 ms P-R-T Axes : 56 45 57 degrees QTcB Int : 426 ms Normal sinus rhythm Normal ECG When compared with ECG of 02-Jun-2024 11:29, (unconfirmed) No significant change was found Confirmed by Teodoro Burch ([id number]) on 06/02/2024 3:55:16 PM Referred By: REFERRED SELF Confirmed By: Teodoro Burch
--- NOTE | 2024-06-02 15:56 | Electrocardiogram Report ---
Test Reason : Blood Pressure : */* mmHG Vent. Rate : 89 BPM Atrial Rate : 89 BPM P-R Int : 146 ms QRS Dur : 92 ms QT Int : 374 ms P-R-T Axes : 67 61 70 degrees QTcB Int : 455 ms Normal sinus rhythm with sinus arrhythmia Normal ECG When compared with ECG of 30-Apr-2023 15:16, No significant change was found Confirmed by Teodoro Burch ([id number]) on 06/02/2024 3:55:48 PM Referred By: REFERRED SELF Confirmed By: Teodoro Burch
[2024-06-02 16:10] LABS: Thyroid Stimulating Hormone 0.813 uIu/ml (0.300-4.500)
[2024-06-02] MEDS ORDERED: LABETALOL HCL IV 5 MG/ML 20ML IV PRN (17:08)
[2024-06-02] MEDS ORDERED: ONDANSETRON INJ 2 MG/ML 2 ML VIAL IV PRN (17:08)
[2024-06-02] MEDS ORDERED: ALUMINUM/MAGNESIUM SUSP 30 ML UDC PO PRN (17:08)
[2024-06-02] MEDS ORDERED: LORazepam 2 MG/1 ML VIAL IV PRN (17:08)
[2024-06-02] MEDS ORDERED: POLYETHYLENE (MIRALAX) 17 GM PACK PO PRN (17:08)
[2024-06-02] MEDS: ATORVASTATIN 40 MG TAB PO SCH (18:22)
[2024-06-02] MEDS: NICOTINE 21 MG/24 HR TDSY TD SCH (18:22)
[2024-06-02] MEDS: ACETAMINOPHEN 325 MG TAB PO PRN (19:58)
[2024-06-02] MEDS: PANTOprazole 40 MG TAB PO SCH (19:59)
[2024-06-02] MEDS: METOPROLOL SUCC 25MG EXT REL TAB PO SCH (20:00)
[2024-06-02 21:14] LABS: ANTI-Xa, UFH(UnfractionatedHep < 0.10 IU/ml (0.3-0.7)
[2024-06-02 22:03] LABS: Troponin I High Sensitivity 2204.5 pg/ml (0-20)
[2024-06-02 22:12] LABS: Magnesium 2.1 mg/dl (1.7-2.4)
[2024-06-02] MEDS: HEPARIN SOD (PORCINE) 1000 UNIT/ML IV ONE (23:44)
[2024-06-03 04:12] LABS: Hematocrit (blood only) 51.2 % (42.0-52.0); Hemoglobin 17.8 g/dl (14.0-18.0); Mean Corpuscular Hemoglobin 30.6 pg (25.0-34.0); Mean Corpuscular Hgb Conc 34.8 g/dL (32.0-36.0); Mean Platelet Volume 9.7 fL (9.4-12.4); Platelet Count 174 K/uL (130-400); RDW Coefficient of Variation 13.5 % (11.5-14.5); RDW Standard Deviation 43.6 fL (36.4-46.3); Red Blood Count 5.82 M/uL (4.70-6.10); White Blood Count 11.19 K/ul (4.8-10.8)
[2024-06-03 04:21] LABS: Albumin Globulin Ratio 1.4 (0.9-2); Albumin Level 3.7 gm/dl (3.4-5.0); Bilirubin,Total 0.8 mg/dl (0.2-1.0); Calcium 8.5 mg/dl (8.6-10.3); Chol HDL Ratio 5.2 (0-5); Creatinine Clr Calc Pharmacy 156.4 ml/min; Globulin 2.6 gm/dl (2.5-4.0); Magnesium 2.1 mg/dl (1.7-2.4); Phosphorus 3.3 mg/dl (2.5-4.9); Potassium 3.9 mmol/L (3.5-5.1); Total Protein 6.3 gm/dl (6.0-8.3)
[2024-06-03 04:22] LABS: ANTI-Xa, UFH(UnfractionatedHep 0.31 IU/ml (0.3-0.7)
--- NOTE | 2024-06-03 07:20 | Electrocardiogram Report ---
Test Reason : Blood Pressure : */* mmHG Vent. Rate : 63 BPM Atrial Rate : 63 BPM P-R Int : 152 ms QRS Dur : 90 ms QT Int : 426 ms P-R-T Axes : 57 45 56 degrees QTcB Int : 435 ms Normal sinus rhythm Normal ECG When compared with ECG of 02-Jun-2024 12:11, No significant change was found Confirmed by Teodoro Burch ([id number]) on 06/03/2024 7:20:33 AM Referred By: REFERRED SELF Confirmed By: Teodoro Burch
--- NOTE | 2024-06-03 07:20 | Electrocardiogram Report ---
Test Reason : Blood Pressure : */* mmHG Vent. Rate : 66 BPM Atrial Rate : 66 BPM P-R Int : 150 ms QRS Dur : 90 ms QT Int : 422 ms P-R-T Axes : 70 63 70 degrees QTcB Int : 442 ms Normal sinus rhythm When compared with ECG of 02-Jun-2024 16:17, (unconfirmed) No significant change was found Confirmed by Teodoro Burch ([id number]) on 06/03/2024 7:20:13 AM Referred By: REFERRED SELF Confirmed By: Teodoro Burch
[2024-06-03] MEDS: ASPIRIN 81 MG ECTAB PO SCH (08:38)
[2024-06-03] MEDS: FOLIC ACID 1 MG TAB PO SCH (08:39)
[2024-06-03] MEDS: MULTIVITAMIN TAB PO SCH (08:39)
[2024-06-03] MEDS: THIAMINE HCL 100 MG TAB PO SCH (08:39)
[2024-06-03] MEDS: SERTRALINE HCL 50 MG TABLET PO SCH (08:40)
[2024-06-03] MEDS: AMITRIPTYLINE HCL 10 MG TAB PO SCH (08:40)
[2024-06-03] MEDS: lisinopril 10 MG TAB PO SCH (08:40)
--- NOTE | 2024-06-03 12:56 | Cardiology Progress Note ---
Date of Service June 03, 2024 Assessment & Plan (1) NSTEMI (non-ST elevated myocardial infarction): (2) Wide-complex tachycardia: (3) Hypertension: Plan Assessment: 43 year old male presents with new onset brief episode of severe chest discomfort while at rest. Experienced an additional epidose of chest pain, somewhat different upon arrival consistent with a fast wide complex tachycardia. Cardiology has been requested to further assess and provide recommendations. Plan: 1. chest pain: 2. Wide complex tachycardia -2 separate episodes, slightly different, one with arrhythmia noted on telemetry; however he was near syncopal with this episode and was not with the episode at home. Etiology unclear -EKG's unremarkable. -Prior history of HTN for which he takes Lisinopril at home. -Initial troponin negative. Will continue to trend, pending now. -Electrolytes WNL -Check TSH -DDS elevated at 990. Will need CTA to rule out PE. -For echocardiogram today -Pending CTA, echocardiogram and labs, will provide further recommendations as appropriate. 3. HTN -Currently well controlled. -Continue Lisinopril. 06/03/2024: -Patient is doing well this morning from a cardiac perspective -No acute events overnight and no further episodes of chest discomfort. -Troponin peaked at 2707.5 -Echocardiogram shows no regional wall motion abnormalities, normal LV systolic function, LVEF 60-65%, normal RV Grade I diastolic dysfunction, and no valvular disease. -Plan is to continue Heparin gtt, make NPO after midnight for cardiac cath in the AM -Continue GDMT with Toprol xl, Atorvastatin, ASA 81mg and Lisinopril -BP well controlled. -Patient has Nicotine patch in place Case has been discussed with Dr. Cisneros. Further recommendations regarding plan of care as per his assessment. I spent a total of 40 minutes on the date of service in preparation, delivery, documentation of the care provided to the patient excluding any time spent in the performance of separately billed services. EMERITA Alford [facility] Admission and Anticipated Discharge Date Admission Date: June 02, 2024 Supervising Physician Co-Signing Physician Notes Attending attestation: Case reviewed with the advanced practitioner. I have personally performed a history and physical examination on the patient. I have reviewed the advanced practitioner's documentation on the date of service referenced in note, and I agree with, and take responsibility for the plan of care. No additional chest discomfort overnight last night or thus far today. EKG 06/03/2024 at 5:58 AM revealed sinus rhythm at 6 6 bpm. Normal EKG Continue aspirin, metoprolol succinate, lisinopril, atorvastatin, unfractioned heparin. Agree with nicotine patch. N.p.o. after midnight and hold heparin 06/04/2024 at 4 AM for cardiac catheterization. I spent a total of 20 minutes coordinating, documenting, and providing care for this patient excluding time spent in the performance of separately billed services or time spent by another provider. Bret Cisneros, Subjective 06/03/2024: Patient seen and examined in follow up today. Feeling well overall. Denies any recurrence of chest pain/pressure. No recurrence of VT overnight per patient and per telemetry review. Labs, vitals, diagnostics, telemetry and documentation reviewed. Telemetry reviewed showing SR rates 60's with no acute events . Review of Systems Review of Systems: All systems reviewed & are unremarkable except as noted in HPI & below Physical Exam Constitutional: well developed, well nourished and average body habitus; no acute distress and not ill appearing Neck: normal visual inspection and trachea midline Respiratory: normal respiratory effort, lungs clear to auscultation Cardiovascular: Rate/Rhythm: regular rate and regular rhythm Heart Sounds: normal S1 and normal S2; no murmur Vessels: dorsalis pedis pulses present; no JVD Extremities: no edema Skin: no rashes, warm and dry Psychiatric: A+Ox3, euthymic affect Results & Data Vital Signs (Past 12 Hours) Vital Signs Temp Pulse Pulse Resp BP Pulse Ox O2 Del Method 06/03/24 11:00 36.6 C 80 18 130/66 97 Room Air 06/03/24 10:29 62 06/03/24 08:00 36.5 C 79 20 140/76 96 Room Air 06/03/24 03:21 36.3 C L 72 19 148/85 H 94 Room Air Laboratory Results Cardiac Enzymes 06/02/24 06/02/24 06/02/24 Range/Units 14:54 17:16 20:35 AST (13-39) U/L Troponin I High Sens 1775.0 H* D 2707.5 H* D 2204.5 H* (0-20) pg/ml 06/03/24 06/03/24 06/03/24 Range/Units 01:20 03:42 06:03 AST 29 (13-39) U/L Troponin I High Sens 1511.8 H* D 1086.0 H* D (0-20) pg/ml 06/03/24 Range/Units 09:49 AST (13-39) U/L Troponin I High Sens 838.9 H* D (0-20) pg/ml Lipids 06/03/24 Range/Units 03:42 Triglycerides 189 H (0-150) mg/dl Cholesterol 188 (0-200) mg/dl HDL Cholesterol 36 mg/dl Cholesterol/HDL Ratio 5.2 H (0-5) CBC 06/03/24 Range/Units 03:42 WBC 11.19 H (4.8-10.8) K/ul RBC 5.82 (4.70-6.10) M/uL Hgb 17.8 (14.0-18.0) g/dl Hct 51.2 (42.0-52.0) % Plt Count 174 (130-400) K/uL Comprehensive Metabolic Panel 06/03/24 Range/Units 03:42 Sodium 135 L (136-145) mmol/L Potassium 3.9 (3.5-5.1) mmol/L Chloride 104 (98-107) mmol/L Carbon Dioxide 26 (21-32) mmol/L BUN 7 (6-23) mg/dl Creatinine 0.70 (0.6-1.4) mg/dl Glucose 113 H (70-99(Fasting)) mg/dl Calcium 8.5 L (8.6-10.3) mg/dl AST 29 (13-39) U/L ALT 25 (7-52) U/L Alkaline Phosphatase 96 (34-104) U/L Total Protein 6.3 (6.0-8.3) gm/dl Albumin 3.7 (3.4-5.0) gm/dl Intake and Output 06/02/24 06/03/24 06/03/24 22:59 06:59 14:59 Intake Total 282.333 / 518.583 236.25 / 518.583 101.417 / 101.417 Balance 282.333 / 518.583 236.25 / 518.583 101.417 / 101.417 Intake: IV 162.333 / 398.583 236.25 / 398.583 101.417 / 101.417 Heparin 41650 Unit/500 ml D5w 162.333 / 398.583 236.25 / 398.583 101.417 / 101.417 25,000 units In 500 ml @ 1,250 UNITS/HR 25 mls/hr IV .Q20H HUMAIRA Rx#:[id number] Oral 120 / 120 Other: Other Intake Source NPO # Unmeasured Voids 1 1 Weight 94.5 kg 93.6 kg Weight Measurement Method Standing Scale Built in [facility]
--- NOTE | 2024-06-03 15:59 | Ultrasound Report ---
EXAMINATION: Bilateral extremity ultrasound lower CLINICAL HISTORY: Pain PRIORS: Chest CTA TECHNIQUE: Ultrasound interrogation of the deep venous structures was performed with grayscale, color Doppler, compression and augmentation. FINDINGS: The bilateral common femoral, superficial femoral, saphenous, popliteal and tibial veins demonstrate normal compressibility, frequency and augmentation. Possible bilateral inguinal adenopathy in the [id number]. IMPRESSION: No sonographic evidence of deep venous thrombosis in the bilateral lower extremities. Electronically signed by Sharyn Whitmore 06-03-2024 3:58 PM
--- NOTE | 2024-06-03 16:06 | Hospitalist Progress Note ---
Date of Service June 03, 2024 Assessment & Plan (1) Chest pressure: (2) Chest tightness: (3) Elevated troponin: (4) Wide-complex tachycardia: Plan: Jairo Escalante is a 43y/o M with PMHx significant for HTN, gout, GERD without esophagitis, depression and tobacco use disorder who presented to the ED for evaluation of chest pressure and tightness. Patient reports acute onset of midsternal chest tightness and pressure around 9AM this morning while at rest w hich radiated down into his left arm. Had some mild SOB with this as well but no diaphoresis. This episode lasted a few minutes and then resolved spontaneously, however it prompted him to present to the ED because he had never experienced chest discomfort of that intensity before. Patient then developed a sudden onset of severe chest tightness, somewhat similar to before, but this time nonradiating whilst resting in his ED bed around 11:42 this morning. He became very dizzy with this. Monitor strip at that time revealed a nonsustained episode of wide-complex tachycardia which resolved spontaneously and his symptoms completely resolved s/p 324mg aspirin and 4mg IV morphine. ED provider, Dr. Marion, discussed his case with Dr. Cisneros over the phone. Dr. Cisneros's recommendation was to initiate IV heparin and obtain resting echocardiogram. Chest Pain R/O ACS Hypertensive Urgency Wide Complex Tachycardia --Chest CTA:No evidence for pulmonary embolism. --ECHO: No regional wall motion abnormality. EF 60 to 65%. Right ventricle is normal in size and function. Grade 1 diastolic dysfunction. No significant valvular disease. --Troponin trending down Continue IV heparin Continue aspirin, Lipitor Continue lisinopril, metoprolol IV labetalol as needed N.p.o. after midnight for cardiac catheterization tomorrow Appreciate cardiology input (5) Elevated d-dimer: Plan: D-dimer elevated at 990. Chest CTA negative for PE. --Venous Doppler:No sonographic evidence of deep venous thrombosis in the bilateral lower extremities. (6) Hypertensive urgency: Plan: Management as above (7) Tobacco use disorder: Plan: Smokes about 1 and 1/2 to 2 PPD. Nicotine patch ordered per patient's request. Encourage smoking cessation. (8) Alcohol use disorder: Plan: Usually drinks about 10 beers/day however he has not done so since this past . Denies any history of alcohol withdrawal. Start folate and thiamine supplementation. At-risk PRN Ativan AWSS protocol. DVT Px IV heparin Code Status: Full Code Admission and Anticipated Discharge Date Admission Date: June 02, 2024 Subjective Patient is seen and examined at bedside Chest pain resolved Offers no new complaints Denies any dyspnea, nausea, vomiting, abdominal pain Review of Systems Review of Systems: All systems reviewed & are unremarkable except as noted in Subjective Physical Exam Physical Exam: Physical Exam: Vitals signs as noted above General Appearance:Moderately built and nourished, no apparent distress Head: normocephalic, Atraumatic Eyes: normal inspection, EOMI Neck: supple, Trachea midline Respiratory/Chest: Normal breath sounds, CTA, No accessory muscle use Cardiovascular: S1, S2, No murmur Abdomen/GI:Soft, Non tender, Bowel sounds present Extremities/Musculoskeletal:normal inspection, no edema Neurologic/Psych:AAOX3, grossly no focal neurological deficits Skin: normal color, warm Results & Data Results & Data Vital Signs (Past 12 Hours) Vital Signs Temp Pulse Pulse Resp BP Pulse Ox O2 Del Method 06/03/24 14:23 84 06/03/24 11:00 36.6 C 80 18 130/66 97 Room Air 06/03/24 10:29 62 06/03/24 08:00 36.5 C 79 20 140/76 96 Room Air Laboratory Results Short CBC 06/03/24 Range/Units 03:42 WBC 11.19 H (4.8-10.8) K/ul Hgb 17.8 (14.0-18.0) g/dl Hct 51.2 (42.0-52.0) % Plt Count 174 (130-400) K/uL BMP 06/03/24 03:42 Sodium 135 L Potassium 3.9 Chloride 104 Carbon Dioxide 26 BUN 7 Creatinine 0.70 Glucose 113 H Calcium 8.5 L Liver Function 06/03/24 Range/Units 03:42 Total Bilirubin 0.8 (0.2-1.0) mg/dl AST 29 (13-39) U/L ALT 25 (7-52) U/L Alkaline Phosphatase 96 (34-104) U/L Albumin 3.7 (3.4-5.0) gm/dl
[2024-06-04 07:13] LABS: Hematocrit (blood only) 51.2 % (42.0-52.0); Hemoglobin 17.7 g/dl (14.0-18.0); Mean Corpuscular Hemoglobin 30.3 pg (25.0-34.0); Mean Corpuscular Hgb Conc 34.6 g/dL (32.0-36.0); Mean Corpuscular Volume 87.5 fL (80.0-100.0); Mean Platelet Volume 9.9 fL (9.4-12.4); Platelet Count 174 K/uL (130-400); RDW Coefficient of Variation 13.2 % (11.5-14.5); RDW Standard Deviation 42.5 fL (36.4-46.3); Red Blood Count 5.85 M/uL (4.70-6.10); White Blood Count 8.48 K/ul (4.8-10.8)
[2024-06-04 07:14] LABS: ANTI-Xa, UFH(UnfractionatedHep < 0.10 IU/ml (0.3-0.7)
[2024-06-04 07:32] LABS: BUN Creatinine Ratio 12.7 (10-20); Calcium 8.7 mg/dl (8.6-10.3); Potassium 4.2 mmol/L (3.5-5.1)
[2024-06-04] MEDS: NITROGLYCERIN/D5W 100MCG/ML 20ML SYR ONE (09:33)
[2024-06-04] MEDS: niCARdipine 2,000 MCG/20 ML SYR ONE (09:33)
[2024-06-04] MEDS: HEPARIN (PORCINE) 1000 UNIT/ML 10 ML (CATH LAB USE ONLY) ONE (09:33)
[2024-06-04] MEDS: MIDAZOLAM HCL 1 MG/ML 2ML VIAL ONE (09:33)
[2024-06-04] MEDS: fentaNYL citrate PF 100 MCG/2 ML VIAL ONE (09:34)
[2024-06-04] MEDS: OPTIRAY 350 ONE (09:34)
--- NOTE | 2024-06-04 09:48 | Pre Anesthesia Assessment ---
Date of Service June 04, 2024 Pre Sedation Assessment Vital Signs Temp Pulse Pulse Resp BP Pulse Ox O2 Del Method 06/04/24 08:53 71 18 161/104 H 96 Room Air 06/04/24 07:51 36.5 C 74 18 138/74 96 Room Air 06/04/24 07:01 62 06/04/24 03:15 36.5 C 66 16 126/81 95 Room Air 06/03/24 23:07 36.3 C L 64 19 132/86 95 Room Air 06/03/24 21:52 81 06/03/24 19:05 36.5 C 74 16 145/94 H 94 Room Air 06/03/24 15:46 36.7 C 77 16 124/72 98 Room Air 06/03/24 14:23 84 06/03/24 11:00 36.6 C 80 18 130/66 97 Room Air 06/03/24 10:29 62 Cardiovascular RRR, no murmur, no edema + regular rate Respiratory normal respiratory effort, lungs clear to auscultation Pre-Sedation Airway Assessment Smoking Status: Current every day smoker mallampati 3 ASA 4 Notes The planned sedation has been discussed with the patient. Informed Consent was obtained. I have identified the patient, determined the appropriateness of sedation and have assessed the patient immediately prior to the procedure. All medicine(s) and interventions are by my order.
--- NOTE | 2024-06-04 09:50 | Post Anesthesia Assessment ---
Date of Service June 04, 2024 Post Sedation Assessment Vital Signs Temp Pulse Pulse Resp BP Pulse Ox O2 Del Method 06/04/24 09:45 70 16 130/85 94 Room Air 06/04/24 08:53 71 18 161/104 H 96 Room Air 06/04/24 07:51 36.5 C 74 18 138/74 96 Room Air 06/04/24 07:01 62 06/04/24 03:15 36.5 C 66 16 126/81 95 Room Air 06/03/24 23:07 36.3 C L 64 19 132/86 95 Room Air 06/03/24 21:52 81 06/03/24 19:05 36.5 C 74 16 145/94 H 94 Room Air 06/03/24 15:46 36.7 C 77 16 124/72 98 Room Air 06/03/24 14:23 84 06/03/24 11:00 36.6 C 80 18 130/66 97 Room Air 06/03/24 10:29 62 Recovery Score Activity: Moves 4 extremities Respiration: Deep Breath/Cough Circulation: +/-20% PreAnes Value Consciousness: Fully Awake Oxygen Saturation: > 92% On Room Air Discharge Sedation Level of Care: Fast Track Phase II Post Sedation Plan On clinical assessment, the patient appears to have tolerated the sedation without complications. Patient is recovering as anticipated. Patient will continue to be monitored by nursing and may be discharged when sedation discharge criteria are met per below protocol. Upon Completions of procedure up to 15 minutes continue every 5 minute vital signs and the P.A.R. score; then discharge to a Phase I or Fast Track to Phase II per the following guidelines: * Discharge Patient to appropriate Phase II area if PAR is 8 or greater or return to pre- procedure baseline. The post - procedure orders will be as directed. * If PAR score is less than 8 or not return to pre-procedure baseline then patient will follow Phase I monitoring till PAR is reached for Phase II. The Phase I may be done in procedure room or may call to secure a Phase I area. * If naloxone or flumazenil are used for reversal, hold in Phase I for continued monitoring from when last reversal dose was given for a minimum of 60 minutes or longer pending the nurse and/or physician discretion of patient condition before discharge to Phase II. Please call the Sedation Physician to re-evaluate and complete post-note for discharge to Phase II area. Do NOT discharge from procedure sedation or Phase 1 until post- sedation alex luation note is complete by procedure /sedation MD Sedation Discharge Instructions to be given to the patient at discharge to home. [facility] Procedure Codes (Charges) Indication for Procedure Indication for procedure: VT elevated troponin Sedation/Anesthesia Procedure 1: Sedation/Anesthesia: 03906 Mod Sedation by the same physician;Init15 Min Child Age 5 & Up (Initial 15 minutes, start time 0920) Total Sedation Time (minutes): 19 Procedure 2: Sedation/Anesthesia: 93177 Mod Sedation by the same physician; Ea [id number] Minutes (Additional 4 minutes, end time 0939) Total Sedation Time (minutes): 19
[2024-06-04 11:50] LABS: Estimated Average Glucose 117 mg/dl; Hemoglobin A1C 5.7 % (4.5-5.6)
--- NOTE | 2024-06-04 12:16 | Cardiology Progress Note ---
Date of Service June 04, 2024 Assessment & Plan (1) NSTEMI (non-ST elevated myocardial infarction): (2) Wide-complex tachycardia: (3) Hypertension: (4) Dyslipidemia: Plan Patient presents with episode of severe resting chest discomfort 06/02/2024. After arrival to the emergency department, patient was observed to have a brief round of fast wide-complex tachycardia, 200 bpm, less than 3 seconds in duration with reproduction of symptoms. Subsequent high-sensitivity troponin measurements climbed, peaking at 2707 PG per mL on 06/02/2024. Serial EKG tracings without ischemic changes. Echocardiogram performed 06/02/2024 revealed normal left ventricular wall motion, normal LVEF in the range of 6065%, grade 1 diastolic dysfunction. No significant valvular disease. -Cardiac catheterization today revealed mild luminal irregularities without obstructive disease. No culprit. Question if patient had micro plaque rupture with spontaneous recanalization. -No additional symptoms or arrhythmias observed over the last 2 days. Recommend discharge on the following medications * Aspirin 81 mg daily * Clopidogrel 75 mg daily x 1 year * Metoprolol succinate 25 mg 1 time per day * Lisinopril 10 mg daily * Atorvastatin 40 mg daily * Smoking cessation advised. * Patient will need to be off work for least 3 days to allow for radial artery catheterization site recovery. * Plan for Zio patch monitor to be placed in the office in about a week. Admission and Anticipated Discharge Date Admission Date: June 02, 2024 Subjective Patient seen in cardiology follow up. Denies chest pain or recurrent palpitations. Telemetry overnight and today reveals SR in the range of 50-80 bpm without recurrent arrhythmia. Review of Systems Review of Systems: All systems reviewed & are unremarkable except as noted in HPI & below Physical Exam Constitutional: well developed, well nourished and average body habitus; no acute distress and not ill appearing Neck: normal visual inspection and trachea midline Respiratory: normal respiratory effort, lungs clear to auscultation Cardiovascular: Rate/Rhythm: regular rate and regular rhythm Heart Sounds: normal S1 and normal S2; no murmur Vessels: dorsalis pedis pulses present; no JVD Extremities: no edema right radial procedure site, clean , dry , and intact , radial band in place, no hematoma Skin: no rashes, warm and dry Psychiatric: A+Ox3, euthymic affect Results & Data Vital Signs (Past 12 Hours) Vital Signs Temp Pulse Pulse Resp BP Pulse Ox O2 Del Method 06/04/24 11:00 77 16 120/83 95 Room Air 06/04/24 10:30 71 16 127/77 96 Room Air 06/04/24 10:15 36.4 C L 65 16 124/81 96 Room Air 06/04/24 10:00 70 16 105/77 92 Room Air 06/04/24 09:45 70 16 130/85 94 Room Air 06/04/24 08:53 71 18 161/104 H 96 Room Air 06/04/24 07:51 36.5 C 74 18 138/74 96 Room Air 06/04/24 07:01 62 06/04/24 03:15 36.5 C 66 16 126/81 95 Room Air Laboratory Results CBC 06/04/24 Range/Units 06:44 WBC 8.48 (4.8-10.8) K/ul RBC 5.85 (4.70-6.10) M/uL Hgb 17.7 (14.0-18.0) g/dl Hct 51.2 (42.0-52.0) % Plt Count 174 (130-400) K/uL Comprehensive Metabolic Panel 06/04/24 Range/Units 06:44 Sodium 136 (136-145) mmol/L Potassium 4.2 (3.5-5.1) mmol/L Chloride 103 (98-107) mmol/L Carbon Dioxide 28 (21-32) mmol/L BUN 10 (6-23) mg/dl Creatinine 0.79 (0.6-1.4) mg/dl Glucose 114 H (70-99(Fasting)) mg/dl Calcium 8.7 (8.6-10.3) mg/dl Intake and Output 06/03/24 06/04/24 06/04/24 22:59 06:59 14:59 Intake Total 240 / 886.417 545 / 886.417 Balance 240 / 886.417 545 / 886.417 Intake: IV 425 / 526.417 Heparin 32848 Unit/500 ml D5w 425 / 526.417 25,000 units In 500 ml @ 1,250 UNITS/HR 25 mls/hr IV .Q20H HUMAIRA Rx#:[id number] Oral 240 / 360 120 / 360 Other: # Unmeasured Voids 1 Weight 92.1 kg Weight Measurement Method Built in [facility] Diagnostic Findings EKG performed 06/04/2024 at 5:20 AM reveals sinus rhythm at 68 bpm, normal findings. Corrected QT interval normal 433 ms.
--- NOTE | 2024-06-04 13:07 | Electrocardiogram Report ---
Test Reason : Blood Pressure : */* mmHG Vent. Rate : 68 BPM Atrial Rate : 68 BPM P-R Int : 158 ms QRS Dur : 90 ms QT Int : 408 ms P-R-T Axes : 55 46 61 degrees QTcB Int : 433 ms Normal sinus rhythm with sinus arrhythmia Normal ECG When compared with ECG of 03-Jun-2024 05:58, No significant change was found Confirmed by Teodoro Burch ([id number]) on 06/04/2024 1:06:59 PM Referred By: REFERRED SELF Confirmed By: Teodoro Burch
[2024-06-04 13:50] VITALS: TEMP 97.9
--- NOTE | 2024-06-04 14:45 | Hospitalist Progress Note ---
Date of Service June 04, 2024 Assessment & Plan (1) Chest pressure: (2) Chest tightness: (3) Elevated troponin: (4) Wide-complex tachycardia: Plan: Jairo Escalante is a 43y/o M with PMHx significant for HTN, gout, GERD without esophagitis, depression and tobacco use disorder who presented to the ED for evaluation of chest pressure and tightness. Patient reports acute onset of midsternal chest tightness and pressure around 9AM this morning while at rest w hich radiated down into his left arm. Had some mild SOB with this as well but no diaphoresis. This episode lasted a few minutes and then resolved spontaneously, however it prompted him to present to the ED because he had never experienced chest discomfort of that intensity before. Patient then developed a sudden onset of severe chest tightness, somewhat similar to before, but this time nonradiating whilst resting in his ED bed around 11:42 this morning. He became very dizzy with this. Monitor strip at that time revealed a nonsustained episode of wide-complex tachycardia which resolved spontaneously and his symptoms completely resolved s/p 324mg aspirin and 4mg IV morphine. ED provider, Dr. Marion, discussed his case with Dr. Cisneros over the phone. Dr. Cisneros's recommendation was to initiate IV heparin and obtain resting echocardiogram. Chest Pain Hypertensive Urgency Possible NSTEMI ? if patient had micro plaque rupture with spontaneous recanalization. Wide Complex Tachycardia --Chest CTA:No evidence for pulmonary embolism. --ECHO: No regional wall motion abnormality. EF 60 to 65%. Right ventricle is normal in size and function. Grade 1 diastolic dysfunction. No significant valvular disease. --Troponin trending down --Per Cardiology:S/P Cath:Cardiac catheterization today revealed mild luminal irregularities without obstructive disease. No culprit. Continue IV heparin discontinued Continue aspirin, Plavix, Lipitor, lisinopril, metoprolol IV labetalol as needed Appreciate cardiology input ZIO patch monitor on discharge Will likely need EP study as outpatient (5) Elevated d-dimer: Plan: D-dimer elevated at 990. Chest CTA negative for PE. --Venous Doppler:No sonographic evidence of deep venous thrombosis in the bilateral lower extremities. (6) Hypertensive urgency: Plan: Management as above (7) Tobacco use disorder: Plan: Smokes about 1 and 1/2 to 2 PPD. Nicotine patch ordered per patient's request. Encourage smoking cessation. (8) Alcohol use disorder: Plan: Usually drinks about 10 beers/day however he has not done so since this past T . Denies any history of alcohol withdrawal. Start folate and thiamine supplementation. At-risk PRN Ativan AWSS protocol. DVT Px IV heparin discontinued Code Status: Full Code Disposition Home Admission and Anticipated Discharge Date Admission Date: June 02, 2024 Subjective Patient is seen and examined at bedside Had cardiac catheterization earlier today No recurrence of chest pain Discussed with cardiology. Also denies any dyspnea, nausea, vomiting, abdominal pain Plan to be discharged home today Review of Systems Review of Systems: All systems reviewed & are unremarkable except as noted in Subjective Physical Exam Physical Exam: Physical Exam: Vitals signs as noted above General Appearance:Moderately built and nourished, no apparent distress Head: normocephalic, Atraumatic Eyes: normal inspection, EOMI Neck: supple, Trachea midline Respiratory/Chest: Normal breath sounds, CTA, No accessory muscle use Cardiovascular: S1, S2, No murmur Abdomen/GI:Soft, Non tender, Bowel sounds present Extremities/Musculoskeletal:normal inspection, no edema Neurologic/Psych:AAOX3, grossly no focal neurological deficits Skin: normal color, warm Results & Data Results & Data Vital Signs (Past 12 Hours) Vital Signs Temp Pulse Pulse Resp BP Pulse Ox O2 Del Method 06/04/24 13:01 36.6 C 89 18 116/76 96 Room Air 06/04/24 12:01 36.8 C 91 H 18 124/80 96 Room Air 06/04/24 11:00 77 16 120/83 95 Room Air 06/04/24 10:30 71 16 127/77 96 Room Air 06/04/24 10:15 36.4 C L 65 16 124/81 96 Room Air 06/04/24 10:00 70 16 105/77 92 Room Air 06/04/24 09:45 70 16 130/85 94 Room Air 06/04/24 08:53 71 18 161/104 H 96 Room Air 06/04/24 07:51 36.5 C 74 18 138/74 96 Room Air 06/04/24 07:01 62 06/04/24 03:15 36.5 C 66 16 126/81 95 Room Air Laboratory Results Short CBC 06/04/24 Range/Units 06:44 WBC 8.48 (4.8-10.8) K/ul Hgb 17.7 (14.0-18.0) g/dl Hct 51.2 (42.0-52.0) % Plt Count 174 (130-400) K/uL [facility] 06/04/24 06:44 Sodium 136 Potassium 4.2 Chloride 103 Carbon Dioxide 28 BUN 10 Creatinine 0.79 Glucose 114 H Calcium 8.7
[2024-06-04 14:57] VITALS: BP 120/72; PULSE 78; RESP 16; O2SAT 95
--- NOTE | 2024-06-04 14:59 | Discharge Summary ---
Date of Service June 04, 2024 Admission HPI Per Admitting Provider Jairo Escalante is a 43y/o M with PMHx significant for HTN, gout, GERD without esophagitis, depression and tobacco use disorder who presented to the ED for evaluation of chest pain. History obtained from the patient and associated chart review. Patient seen at bedside with Dr. Kirkpatrick. Patient reports acute onset of midsternal chest tightness and pressure around 9AM this morning while at rest which radiated down into his left arm. Had some mild SOB with this as well but no diaphoresis. This episode lasted a few minutes and then resolved spontaneously, however it prompted him to present to the ED because he had never experienced chest discomfort/pain of that intensity before. Patient then developed a sudden onset of severe chest tightness, somewhat similar to before, but this time nonradiating whilst resting in his ED bed around 11:42 this morning. He became very dizzy with this. Monitor strip at that time revealed a nonsustained episode of wide-complex tachycardia which resolved spontaneously and his symptoms completely resolved s/p 324mg aspirin and 4mg IV morphine. ED provider, Dr. Marion, discussed his case with Dr. Cisneros over the phone. Dr. Cisneros's recommendation was to initiate IV heparin and obtain resting echocardiogram. No further episodes of chest discomfort/pain reported since then. No personal prior cardiac history. Had an exercise stress echocardiography done in September 2010 which was unremarkable. Does mention his dad had a "cardiac arrest event" in his 50s. Also has an aunt with history of [place]. Patient had been sick about 2 days ago with nausea and vomiting however he stat es this has since resolved. Attributes this to possible food poisoning vs norovirus. Appetite now good. No recent fevers, chills or body aches. Denies any recent diarrhea. Smokes about 1 and 1/2 to 2 PPD. Usually drinks about 10 beers/day however he has not done so since this past . Denies any history of alcohol withdrawal. EKG x 2 in ED were unremarkable with no evidence of ST changes. CXR negative. BP initially 218/124 on presentation. BP improved to 118/80 s/p 10mg IV labetalol. Initial troponin negative. Repeat troponin 1775. Repeat EKG following bump in troponin was again unremarkable - noted NSR with no acute ST changes. Patient remains free of chest pain/discomfort since episode of wide-complex tachycardia as per above. Admission Exam Per Admitting Provider VS noted and reviewed oriented x3, not in distress, speaks in sentences with no effort nor accessory muscle use normal rate, regular rhythm, no murmurs clear breath sounds bilaterally non distended, soft, nontender no bipedal edema, erythema, warmth no neuro deficits Principal Diagnosis Chest Pain Hypertensive Urgency Tobacco use disorder Alcohol use disorder Discharge Data Allergies Allergy/AdvReac Type Severity Reaction Status Date / Time shellfish derived Allergy Severe Swelling Verified 04/30/23 15:54 of Lip/Tongue/Throat bupropion Allergy Intermediate hives Verified 04/30/23 15:54 Consultations 06/02/24 13:22 ED Decision to Admit Stat 06/02/24 13:34 Consult Cardiology Routine Procedures Performed Operation Date: 06/04/24 11:00 Actual Procedures p Cineradiography w/Routine Exam(Right) - Bret Roberson MD, PhD p Cath, Left with Cors and Vent - Bret Roberson MD, PhD Laboratory Results WBC 8.48 K/ul (4.8-10.8) 06/04/24 06:44 RBC 5.85 M/uL (4.70-6.10) 06/04/24 06:44 Hgb 17.7 g/dl (14.0-18.0) 06/04/24 06:44 Hct 51.2 % (42.0-52.0) 06/04/24 06:44 MCV 87.5 fL (80.0-100.0) 06/04/24 06:44 MCH 30.3 pg (25.0-34.0) 06/04/24 06:44 MCHC 34.6 g/dL (32.0-36.0) 06/04/24 06:44 RDW Std Deviation 42.5 fL (36.4-46.3) 06/04/24 06:44 RDW Coeff of Perri 13.2 % (11.5-14.5) 06/04/24 06:44 Plt Count 174 K/uL (130-400) 06/04/24 06:44 MPV 9.9 fL (9.4-12.4) 06/04/24 06:44 Immature Gran % (Auto) 0.5 % 06/02/24 11:34 Neut % (Auto) 69.7 % 06/02/24 11:34 Lymph % (Auto) 20.8 % 06/02/24 11:34 [place] % (Auto) 6.6 % 06/02/24 11:34 Eos % (Auto) 2.1 % 06/02/24 11:34 Baso % (Auto) 0.3 % 06/02/24 11:34 Neut # (Auto) 6.78 K/uL (1.40-6.50) H 06/02/24 11:34 Lymph # (Auto) 2.02 K/uL (1.20-3.40) 06/02/24 11:34 [place] # (Auto) 0.64 K/uL (0.11-0.59) H 06/02/24 11:34 Eos # (Auto) 0.20 K/uL (0.00-0.50) 06/02/24 11:34 Baso # (Auto) 0.03 K/uL (0.00-0.20) 06/02/24 11:34 Immature Gran # (Auto) 0.05 K/uL (0.01-0.20) 06/02/24 11:34 D-Dimer 990 ug/L FEU (0-500) H* 06/02/24 11:34 Heparin Anti-Xa, Unfract < 0.10 IU/ml (0.3-0.7) L 06/04/24 06:44 Sodium 136 mmol/L (136-145) 06/04/24 06:44 Potassium 4.2 mmol/L (3.5-5.1) 06/04/24 06:44 Chloride 103 mmol/L (98-107) 06/04/24 06:44 Carbon Dioxide 28 mmol/L (21-32) 06/04/24 06:44 Anion Gap 5 (3-11) 06/04/24 06:44 BUN 10 mg/dl (6-23) 06/04/24 06:44 Creatinine 0.79 mg/dl (0.6-1.4) 06/04/24 06:44 Est Cr Clr Drug Dosing 137.0 ml/min 06/04/24 06:44 eGFR 111.64 06/04/24 06:44 BUN/Creatinine Ratio 12.7 (10-20) 06/04/24 06:44 Glucose 114 mg/dl (70-99(Fasting)) H 06/04/24 06:44 Estimat Average Glucose 117 mg/dl 06/04/24 06:44 Hemoglobin A1c 5.7 % (4.5-5.6) H 06/04/24 06:44 Calcium 8.7 mg/dl (8.6-10.3) 06/04/24 06:44 Phosphorus 3.3 mg/dl (2.5-4.9) 06/03/24 03:42 Magnesium 2.1 mg/dl (1.7-2.4) 06/03/24 03:42 Total Bilirubin 0.8 mg/dl (0.2-1.0) 06/03/24 03:42 AST 29 U/L (13-39) 06/03/24 03:42 ALT 25 U/L (7-52) 06/03/24 03:42 Alkaline Phosphatase 96 U/L (34-104) 06/03/24 03:42 Troponin I High Sens 838.9 pg/ml (0-20) H* D 06/03/24 09:49 Total Protein 6.3 gm/dl (6.0-8.3) 06/03/24 03:42 Albumin 3.7 gm/dl (3.4-5.0) 06/03/24 03:42 Globulin 2.6 gm/dl (2.5-4.0) 06/03/24 03:42 Albumin/Globulin Ratio 1.4 (0.9-2) 06/03/24 03:42 Triglycerides 189 mg/dl (0-150) H 06/03/24 03:42 Cholesterol 188 mg/dl (0-200) 06/03/24 03:42 LDL Cholesterol, Calc 114 mg/dl 06/03/24 03:42 VLDL Cholesterol, Calc 38 mg/dl (0-30) H 06/03/24 03:42 HDL Cholesterol 36 mg/dl 06/03/24 03:42 Cholesterol/HDL Ratio 5.2 (0-5) H 06/03/24 03:42 Lipase 7 U/L (11-82) L 06/02/24 11:34 TSH 0.813 uIu/ml (0.300-4.500) 06/02/24 14:54 SARS-CoV-2 (PCR) NEGATIVE (Negative) 06/02/24 11:57 Influenza Type A (PCR) Negative (Neg) 06/02/24 11:57 Influenza Type B (PCR) Negative (Neg) 06/02/24 11:57 RSV (RT-PCR) Negative (Neg) 06/02/24 11:57 Impressions Chest X-Ray 06/02/24 11:19 XR chest 1V portable CLINICAL HISTORY: Chest pain, nonspecific COMPARISON STUDY: Chest radiograph April 30, 2023. FINDINGS: Lung volumes are normal. Lungs are clear. There is no pneumothorax or pleural effusion. Cardiac size is normal. Mediastinal contours are normal. There is no evidence for pulmonary edema. IMPRESSION: No acute cardiopulmonary findings. ACT 112: Negative or not required by law. Electronically signed by: Rene Harrison M.D. 06/02/2024 12:27 PM Chest CTA 06/02/24 14:11 CT pulmonary angiogram with IV contrast History: Chest pain COMPARISON: None TECHNIQUE: CT angiography of the chest was performed without IV contrast followed by IV contrast, including 3D post processing CTA image reconstruction. Dose reduction techniques were achieved by using automatic exposure control and/or adjustment of mA and/or kV according to patient size and/or use of iterative reconstruction technique. FINDINGS: Diagnostic quality: Adequate There is no evidence for pulmonary embolism. The heart is not enlarged. There is no pericardial effusion. There are no abnormally enlarged hilar or mediastinal lymph nodes. The central tracheobronchial tree is clear. The lungs are clear. There is no pleural effusion. Limited visualized upper abdomen. No destructive osseous changes are seen. IMPRESSION: No evidence for pulmonary embolism. There is moderate centrilobular and paraseptal emphysema. Electronically signed by Teodoro Lundberg 06-02-2024 3:11 PM Venous Doppler Study 06/03/24 08:33 EXAMINATION: Bilateral extremity ultrasound lower CLINICAL HISTORY: Pain PRIORS: Chest CTA TECHNIQUE: Ultrasound interrogation of the deep venous structures was performed with grayscale, color Doppler, compression and augmentation. FINDINGS: The bilateral common femoral, superficial femoral, saphenous, popliteal and tibial veins demonstrate normal compressibility, frequency and augmentation. Possible bilateral inguinal adenopathy in the [id number]. IMPRESSION: No sonographic evidence of deep venous thrombosis in the bilateral lower extremities. Electronically signed by Sharyn Whitmore 06-03-2024 3:58 PM Ordered Studies 06/02/24 14:11 CT angio chest PE protocol Urgent 06/03/24 08:33 US venous doppler LE BI Routine 06/04/24 06:48 CL Cath Imgs for PACS use only Routine Hospital Course (1) Chest pressure: (2) Chest tightness: (3) Elevated troponin: (4) Wide-complex tachycardia: Jairo Escalante is a 43y/o M with PMHx significant for HTN, gout, GERD without esophagitis, depression and tobacco use disorder who presented to the ED for evaluation of chest pressure and tightness. Patient reports acute onset of midsternal chest tightness and pressure around 9AM this morning while at rest which radiated down into his left arm. Had some mild SOB with this as well but no diaphoresis. This episode lasted a few minutes and then resolved spontaneou sly, however it prompted him to present to the ED because he had never experienced chest discomfort of that intensity before. Patient then developed a sudden onset of severe chest tightness, somewhat similar to before, but this time nonradiating whilst resting in his ED bed around 11:42 this morning. He became very dizzy with this. Monitor strip at that time revealed a nonsustained episode of wide-complex tachycardia which resolved spontaneously and his symptoms completely resolved s/p 324mg aspirin and 4mg IV morphine. ED provider, Dr. Marion, discussed his case with Dr. Cisneros over the phone. Dr. Cisneros's recommendation was to initiate IV heparin and obtain resting echocardiogram. Chest Pain Hypertensive Urgency Possible NSTEMI ? if patient had micro plaque rupture with spontaneous recanalization. Wide Complex Tachycardia --Chest CTA:No evidence for pulmonary embolism. --ECHO: No regional wall motion abnormality. EF 60 to 65%. Right ventricle is normal in size and function. Grade 1 diastolic dysfunction. No significant valvular disease. --Troponin trending down --Per Cardiology:S/P Cath:Cardiac catheterization today revealed mild luminal irregularities without obstructive disease. No culprit. Continue IV heparin discontinued Continue aspirin, Plavix, Lipitor, lisinopril, metoprolol IV labetalol as needed Appreciate cardiology input ZIO patch monitor on discharge Will likely need EP study as outpatient (5) Elevated d-dimer: D-dimer elevated at 990. Chest CTA negative for PE. --Venous Doppler:No sonographic evidence of deep venous thrombosis in the bilateral lower extremities. (6) Hypertensive urgency: Management as above (7) Tobacco use disorder: Smokes about 1 and 1/2 to 2 PPD. Nicotine patch ordered per patient's request. Encourage smoking cessation. (8) Alcohol use disorder: Usually drinks about 10 beers/day however he has not done so since this past . Denies any history of alcohol withdrawal. Start folate and thiamine supplementation. At-risk PRN Ativan AWSS protocol. DVT Px IV heparin discontinued Code Status: Full Code Disposition Home Total Time Total Time Spent Total Time Spent (In Minutes): 54 minutes Discharge Plan Discharge Items Patient Disposition: Home - Self-Care Reason For Visit: CHEST PAIN, EPISODE OF VTACH Discharge Diagnosis: Chest Pain Hypertensive Urgency Tobacco use disorder Alcohol use disorder Activity: Per Instructions section Exercise/Sports: Wait until after follow-up appointment Non-emergency contact: Primary Care Provider and Firmware Architect Call non-emergency contact if: you have any medication questions, your symptoms worsen, your pain is concerning for you and you have a fever Follow-up/Referrals: John Woodard MD [Primary Care Provider] - (Date & Time 06/11/2024 9:00 AM Provider: Jackie Schaeffer MD [facility] ) Diet: Heart Healthy Addtl Attending Provider Instructions: ACTIVITY RECOMMENDATIONS: Excess manipulation of the wrist should be avoided for the next 24-48 hours. * No lifting over 2 pounds (approximately a 1/2 gallon of milk) with the utilized arm for 24 hours. * No strenuous activity such as bowling or tennis for 3 days. * Keep the site of the procedure covered with a bandage for 24 hours. *You may shower the day after the procedure. Do not take a tub bath or submerge the puncture site in water for the next 3 days. *Do not operate any motorized equipment for 3 days. SPECIAL CARE INSTRUCTIONS: The site may be slightly bruised and sore following your procedure. Should any of the following occur, contact the DrLeo who performed your procedure. 1. Redness/inflammation, swelling, chills, or fever, or colored drainage at procedure site within 3-7 days after your procedure. 2. Coldness, discoloration, ongoing numbness, severe pain, or swelling. Expect mild tingling of hand and tenderness at the puncture site for up to three days. If this persists beyond three days, or other symptoms develop, notify the Dr. who performed your procedure. BLEEDING: If the procedure site on your wrist begins to bleed, do not panic 1. Place 1 or 2 fingers firmly just slightly above the insertion site to stop the bleeding. You may be able to feel your pulse as you hold pressure. 2. Lift your finger after 5 minutes to see if the bleeding has stopped. 3. Once the bleeding has stopped, gently wipe the wrist area clean with a bandage. * If the bleeding from your wrist does not stop after 10 minutes, or if there is a large amount of bleeding or spurting, call 911 (do not drive yourself to the hospital). SKIN IRRITATION: * You may experience some redness and/or swelling in the area where radiation was administered. If any skin irritation occurs, please contact your family phys ician. FOLLOW UP VISIT: Keep any scheduled doctor appointments. Addtl Credit Card Control Clerk Provider Instructions: Follow-up with your primary care physician Dr. Woodard on 06/11/2024 9:00 AM Follow-up with your automotive painter helper Dr. Cisneros as advised. --Follow-up with your automotive painter helper for ZIO patch monitor on discharge to help rule out arrhythmia --Quit smoking tobacco and drinking alcohol as advised -- Your omeprazole is changed to pantoprazole due to interaction with clopidogrel. Seek immediate medical attention if your symptoms reoccur or worsen Please take all medications as instructed on discharge list below. Please call if you have any questions or problems. You can reach a [facility] hospitalist on duty at [facility] 24 hours a day by calling [phone] Pending Studies at Discharge: No Stand-Alone Forms: My [facility], Work/School Release, Smoking Cessation Medications and DC Order Prescriptions: New atorvastatin 40 mg Tablet 40 mg PO QAM Qty: 30 1RF clopidogrel 75 mg Tablet 75 mg PO QAM Qty: 30 1RF aspirin 81 mg Tablet,Delayed Release (Dr/Ec) 81 mg PO QAM Qty: 30 1RF pantoprazole 40 mg Tablet,Delayed Release (Dr/Ec) 40 mg PO BID Qty: 60 1RF metoprolol succinate 25 mg Tablet Extended Release 24 Hr 25 mg PO QAM Qty: 30 1RF Continued amitriptyline 10 mg Tablet 10 mg PO QAM sertraline [Zoloft] 50 mg Tablet 50 mg PO QAM lisinopril 10 mg Tablet 10 mg PO QAM Discontinued omeprazole 20 mg Tablet,Delayed Release (Dr/Ec) 20 mg PO BID Discharge Orders: Discharge Order (Routine); Ordered 06/04/24 Ordered By: Federico Neves Admission Data Admit Date/Time: 06/02/24 13:34 Attending Provider: Federico Neves Admit Provider: Cristino Kirkpatrick Primary Care Provider: John Woodard Other Providers: Bret Cisneros; Cristino Kirkpatrick
[2024-06-04] MEDS: CLOPIDOGREL BISULFATE 300 MG TAB PO STA (15:08)
--- NOTE | 2024-06-04 16:06 | Cardiac Catheterization ---
[facility] Data: Transformer Molder Cardiac Status Clinical evaluation leading to the procedure CAD Presenation: Non STEMI Anginal Classification: CCS IV Heart Failure: No Cardiogenic Shock within 24 Hours: No Cardiac Arrest within 24 Hours: No Imaging Studies Past 6 Months: Yes Stress Studies Past 6 Months: No Coronary Anatomy Dominant: Right Left Main (% Stenosis): Normal LAD (% Stenosis): Proximal (40%) and Mid (Diffuse less than 30%) D1 (% Stenosis): Ostial (70%) D2 (% Stenosis): Ostial (99%) D3 (% Stenosis): Normal Circumflex (% Stenosis): Ostial (30%) OM1 (% Stenosis): Ostial (99%) OM2 (% Stenosis): Proximal (Less than 20%) L PL1 (% Stenosis): Normal RCA (% Stenosis): Proximal (30%) R PDA (% Stenosis): Proximal (Ectasia) R PL1 (% Stenosis): Normal Left Ventricular Angiography EF (%): 65 to 70% Diagnostic Physicians Name: Bret Roberson MD, PhD Closure Device Percutaneous Entry Location: Radial Closure Device: Radial Band Recommendations: Medical Therapy and/or Counseling Cardiac Cath Procedure Full Procedure Date June 04, 2024 Pre-Procedure Diagnosis Pre-Procedure Diagnosis: Non STEMI and Arrhythmia (VT) AUC Score AUC Score: 09 Post-Procedure Diagnosis Post-Procedure Diagnosis: Mild CAD Procedure(s) Performed Procedure(s) Performed: Coronary Angiography, Left Heart Cath and LV Angiography Die Trouble Shooter Bret Roberson MD, PhD Estimated Blood Loss Estimated Blood Loss: 5 cc Medication(s) Medication(s): Fentanyl, Heparin, Lidocaine 1%, Nicardipine, Nitroglycerin and Versed Summary of Findings Brief description: Patient was brought to the cardiac catheterization suite where he was shaved and prepped in a sterile fashion. Sedated using IV Versed and fentanyl. Soft tissue the right wrist were anesthetized using 2 mL of 1% Xylocaine. Right radial artery was accessed with a modified Seldinger technique and a 6 [place] radial artery glide sheath was placed. Patient was provided anticoagulation with IV heparin and antispasmodics including nicardipine and nitroglycerin. All catheters were advanced and exchanged over a 0.035 J-tip wire. Left coronary angiography in orthogonal views a 5 [place] 4 diagnostic catheter. Right coronary angiography in orthogonal views a 5 [place] 4 diagnostic catheter. Left heart cath and left ventriculogram were performed with a 5 [place] angled pigtail catheter. Diagnostic catheters were removed. Radial artery sheath was removed. Hemostasis was obtained using the TR band. Patient remained hemodynamically stable and asymptomatic. He was returned to the recovery area. This ended the case. Coronary angiography findings: [id number] vessel bifurcating into LAD and circumflex. Mild luminal i rregularities. LAD-this is large caliber and transapical. Proximally there is focal up to 40% stenosis. Vessel gives a medium caliber branching first diagonal which has pro ximal 70% stenosis. The mid LAD has diffuse less than 30% stenosis and gives a small caliber second diagonal. This has ostial 99% stenosis. Distally the LAD has no significant disease and provides a medium to large caliber third diagonal. [id number] and nondominant. Ostial 30% stenosis. Travels in the AV groove where there is a small caliber OM1 with 99% ostial stenosis. Mid AV groove vessel is normal and provides a large caliber branching OM 2. This has proximal mild less than 20% stenosis. The distal AV groove circumflex has luminal irregularities and provides a large branching posterior lateral. This has mild luminal irregularities. The most distal circumflex in the AV groove then tapers and terminates. [id number] and dominant vessel. Proximal focal 30% stenosis. Mid and distal epicardial vessel appear normal. It bifurcates into a large tortuous PDA and a large branching posterior lateral. There is ectasia in the proximal PDA but there is no angiographically significant disease in either of the branch vessels. LVG-EF 65 to 70% Summary: 1. Severe small vessel sidebranch disease. The major epicardial vessels have only mild disease. 2. Normal LV function Hemodynamics Rest Ao:: 111/83 mmHg Final Ao: 109/80 mmHg LV: 100/15 mmHg, LVEDP 17 mmHg Recommendations Recommendations: Medical Therapy and/or Counseling Radiation Exposure (mGy) 987 mGy, fluoroscopy time 4 minutes Contrast (mls) 100 cc Anesthesia 2 mg Versed, 50 mcg fentanyl IV. Start time 0920, end time 0939 Procedural Complication(s) None Disposition Transformer Molder Holding/Recovery I attest to the content of the Intraoperative Record and any orders documented therein. Any exceptions are noted below. [facility] Card Cath Procedure Codes Cardiac Catheterization Procedure 1: Cardiovascular Cath Procedures: 16050 Coronaries and LHC (+/-LV) Moderate Sedation Procedure 1: Sedation/Anesthesia: 02164 Mod Sedation by the same physician;Init15 Min Child Age 5 & Up (Initial 15 minutes, start time 0920) Procedure 2: Sedation/Anesthesia: 58549 Mod Sedation by the same physician; Ea [id number] Minutes (Additional 4 minutes, end time 0939) PG Care Time/CCT Total # of Minutes Spent Total Time Spent with Patient: Total time spent is greater than 50% in coordination of care (as documented) at patient's floor/unit and/or counseling patient:
[2024-06-05] MEDS ORDERED: METOPROLOL SUCC 25MG EXT REL TAB PO SCH (09:00)
[2024-06-05] MEDS ORDERED: CLOPIDOGREL BISULFATE 75 MG TAB PO SCH (09:00)
== END 2024-06-04 15:26 | disposition home or self-care (01) | DRG 282 ==
LOC: ED 11:12 → EDINP 13:34 → SUATTDRO 13:34 → 2S 16:26